=== PATIENT | male | born 1950 | race African-American/Black ===

== ENCOUNTER → 2017-10-04 11:03 | Outpatient (CLI) | payer MEDICARE, OTHER, SELFPAY ==
[2017-10-04 10:29] VITALS: BP 132/82; BMI 31.5
[2017-10-04 14:13] LABS: Absolute Lymphocyte Count 2.76 X10^3/ul (0.83-4.51); Basophil# 0.03 X10^3/uL; Basophil% 0.4 % (0-1); Eosinophil# 0.15 X10^3/uL; Hematocrit 44.4 % (40-54); Hemoglobin 15.1 g/dl (13.0-16.5); Lymphocyte # 2.76 X10^3/ul (4.0); Lymphocyte % 36.3 % (19-41); Mean Corpuscular Hgb 30.4 pg (27.0-32.0); Mean Corpuscular Volume 89.3 fL (80-94); Mean Platelet Vol. 10.6 fl (6.2-12.0); Monocyte# 0.62 X10^3/uL; Monocyte% 8.2 % (0-10); Neutrophil # 4.03 X10^3/uL (2.7-7.7); Platelet Count 226 K/mm3 (150-450); RBC Distribution Width CV 13.3 % (11.6-14.6); RBC Distribution Width SD 42.4 fl (35.1-43.9); Red Blood Count 4.97 M/mm3 (4.6-6.2); White Blood Count 7.6 K/mm3 (4.4-11.0)
[2017-10-04 14:20] LABS: POSITIVE COUNT NO; POSITIVE DIFFERENTIAL NO; POSITIVE MORPHOLOGY NO
[2017-10-04 14:38] LABS: ALB/GLOB Ratio 1.1 RATIO (0.9-2.4); AST(SGOT) 28 U/L (15-37); Alanine Aminotransfer ALT/SGPT 42 U/L (16-61); Albumin, Serum 4.1 g/dL (3.2-5.0); Alkaline Phosphatase 58 U/L (45-117); Anion Gap 9 (5-15); BUN 16 mg/dL (7-18); Calcium,Total 9.2 mg/dL (8.5-10.1); Chloride 103 mmol/L (98-107); Cholesterol 180 mg/dL (200); Creatinine, Serum 1.14 mg/dL (0.70-1.30); EST Glomerular Filtration Rate 68 mL/min (>60); Est Glom Filt Rate - Afr Amer 83 mL/min (>60); Globulin 3.8 g/dL (2.2-4.2); Glucose 113 mg/dL (74-106); High Density Lipoprotein 56 mg/dL; Potassium 4.1 mmol/L (3.5-5.1); Protein, Total 7.9 g/dL (6.4-8.2); Sodium Level 139 mmol/L (136-145); Triglycerides 136 mg/dL; Very Low Density Lipoprotein 27 mg/dL (5-40)
== END ==
PROVIDERS: Family Provider Internal Medicine; PCP Internal Medicine; Visit Provider Internal Medicine
DX: E78.5 Hyperlipidemia, unspecified (principal); N52.9 Male erectile dysfunction, unspecified
CPT/HCPCS: 36415; 80053; 80061; 85025

== ENCOUNTER → 2018-05-31 14:54 | Outpatient (CLI) | payer MEDICARE, OTHER, SELFPAY ==
--- NOTE | 2018-05-31 14:58 | RAD_ITS ---
STUDY: X-RAY - RIGHT HAND REASON FOR EXAM: Pain across the second, third and fourth metacarpals, no specific injury. TECHNIQUE: 3 view(s) of the hand. COMPARISON: None. FINDINGS: Normal radiocarpal articulation. Normal distal radioulnar joint. Normal visualized carpal bones. Normal carpal articulations Normal carpometacarpal articulation of the thumb. Normal second through fifth carpometacarpal joints. Normal metacarpi. Normal metacarpophalangeal joint of the thumb. Normal interphalangeal joint of the thumb. Normal proximal and distal phalanges of the thumb. Normal metacarpophalangeal joints of the second through fifth fingers. Normal proximal and distal interphalangeal joints of the second through fifth fingers. Normal phalanges of the second through fifth fingers. The soft tissue structures are unremarkable. RAD/Hand Min 3 Views IMPRESSION: Normal x-ray examination of the right hand. Electronically Signed: Pete Ortiz MD at 14:05 EDT Tel , Service support ,
--- NOTE | 2018-05-31 15:27 | RAD_ITS ---
STUDY: X-RAY - RIGHT SHOULDER REASON FOR EXAM: Shoulder pain, no trauma. TECHNIQUE: 3 view(s) of the shoulder. COMPARISON: None. FINDINGS: Normal glenohumeral articulation. Normal acromioclavicular joint. There is an os acromiale. Normal humeral head and visualized proximal humerus. There is a small calcification at the inferior aspect of the glenoid. Normal visualized pulmonary apex. RAD/Shoulder min 2 Views IMPRESSION: Os acromiale. Small calcification at the inferior aspect of the glenoid. Electronically Signed: Pete Ortiz MD at 14:15 EDT Tel , Service support ,
== END ==
PROVIDERS: Family Provider Internal Medicine; PCP Internal Medicine; Referring Provider Orthopaedic Surgery; Visit Provider Orthopaedic Surgery
DX: M79.641 Pain in right hand (principal); M25.511 Pain in right shoulder
CPT/HCPCS: 73030; 73130

== ENCOUNTER → 2018-07-08 11:40 | Outpatient (CLI) | payer MEDICARE, OTHER, SELFPAY ==
[2018-07-08 14:38] LABS: AST(SGOT) 25 U/L (15-37); Alanine Aminotransfer ALT/SGPT 35 U/L (16-61); Albumin, Serum 4.1 g/dL (3.2-5.0); Alkaline Phosphatase 68 U/L (45-117); Bilirubin, Direct 0.15 mg/dL (0.00-0.30); Cholesterol 170 mg/dL (200); Globulin 3.6 g/dL (2.2-4.2); High Density Lipoprotein 72 mg/dL; Protein, Total 7.7 g/dL (6.4-8.2); Triglycerides 148 mg/dL; Very Low Density Lipoprotein 30 mg/dL (5-40)
== END ==
PROVIDERS: Family Provider Internal Medicine; PCP Internal Medicine; Referring Provider Nurse Practitioner Family; Visit Provider Nurse Practitioner Family
DX: E78.5 Hyperlipidemia, unspecified (principal); E66.9 Obesity, unspecified
CPT/HCPCS: 80061; 80076

== ENCOUNTER 2018-09-29 10:53 | Emergency (ER) | payer MEDICARE, OTHER, SELFPAY ==
[2018-08-16 14:13] VITALS: BMI 31.5
[2018-09-29 10:55] VITALS: BP 128/74; PULSE 70; RESP 17; TEMP 36.4; O2SAT 98; BMI 31.3
--- NOTE | 2018-09-29 11:21 | CT_ITS ---
STUDY: CT ABDOMEN AND PELVIS WITH CONTRAST REASON FOR EXAM: Male, 68 years old. Left lower quadrant pain x1 day RADIATION DOSAGE (If Supplied By Facility): CTDIvol = ( 10.83 ) mGy, DLP = ( 927.36 ) mGycm TECHNIQUE: Transaxial images were obtained from the dome of the diaphragm to the symphysis pubis without oral contrast. 100CC ml of Isovue 300 contrast was administered. Sagittal and coronal images were reconstructed. Individualized dose optimization techniques were used for this CT. COMPARISON: 2015 FINDINGS: There are chronic interstitial fibrotic changes of the lung bases. The visualized portions of the heart are within normal limits. There is decreased attenuation of the liver consistent with steatosis. Normal gallbladder and extrahepatic biliary system. Normal spleen. Normal pancreas. Normal bilateral adrenal glands. Stable 6.7 cm right renal cyst, no obstructive uropathy. Normal visualized stomach. Normal small intestine. Retained stool noted in the colon. There is an area of abnormal thickening and inflammation around the colon at the junction of the distal descending and proximal sigmoid colon consistent with an acute focal diverticulitis. No perforation or abscess is noted. There is non-visualization of the appendix. Normal abdominal aorta. Normal inferior vena cava. Normal retroperitoneum. Normal urinary bladder. There are prostatic calcifications. Normal abdominal wall. There are diffuse degenerative changes of the visualized lumbar spine. CT/Abdomen/Pelvis W IV Cont ONLY IMPRESSION: Focal area of inflammation involving the junction of the distal descending and proximal sigmoid colon with thickening and pericolonic inflammation consistent with acute uncomplicated diverticulitis. No perforation or abscess noted Fatty infiltration of liver, no discrete lesion Stable right renal cyst Electronically Signed: Modesto Hernandez MD at 12:52 EST , Service support ,
[2018-09-29 11:47] LABS: Absolute Lymphocyte Count 2.14 X10^3/ul (0.83-4.51); Absolute Neutrophil Count 5.3 X10^3/uL (2.0-7.7); Basophil# 0.02 X10^3/uL; Basophil% 0.3 % (0-1); Eosinophil# 0.08 X10^3/uL; Hematocrit 42.3 % (40-54); Hemoglobin 13.8 g/dl (13.0-16.5); Lymphocyte # 2.14 X10^3/ul (4.0); Lymphocyte % 26.9 % (19-41); Mean Corp Hgb Conc 32.6 g/gl (32-36); Mean Platelet Vol. 9.6 fl (6.2-12.0); Monocyte# 0.44 X10^3/uL; Monocyte% 5.5 % (0-10); Neutrophil # 5.25 X10^3/uL (2.7-7.7); POSITIVE COUNT NO; POSITIVE DIFFERENTIAL NO; POSITIVE MORPHOLOGY NO; Platelet Count 223 K/mm3 (150-450); RBC Distribution Width CV 13.6 % (11.6-14.6); RBC Distribution Width SD 45.3 fl (35.1-43.9)
[2018-09-29] MEDS: 0.9% Normal Saline 1,000 ML 1000 ML IV (12:00)
[2018-09-29 12:02] LABS: ALB/GLOB Ratio 0.9 RATIO (0.9-2.4); AST(SGOT) 17 U/L (15-37); Alanine Aminotransfer ALT/SGPT 29 U/L (16-61); Albumin, Serum 3.6 g/dL (3.2-5.0); Alkaline Phosphatase 65 U/L (45-117); Anion Gap 9 (5-15); BUN 13 mg/dL (7-18); BUN/Creat Ratio 14.5 RATIO (10-20); Calcium,Total 8.7 mg/dL (8.5-10.1); Chloride 106 mmol/L (98-107); EST Glomerular Filtration Rate 90 mL/min (>60); Est Glom Filt Rate - Afr Amer 109 mL/min (>60); Estimated Creatinine Clearance 79.65 ml/min; Globulin 3.8 g/dL (2.2-4.2); Glucose 117 mg/dL (74-106); Lipase 174 U/L (73-393); Potassium 3.7 mmol/L (3.5-5.1); Protein, Total 7.4 g/dL (6.4-8.2); Sodium Level 141 mmol/L (136-145)
[2018-09-29 13:09] LABS: Red Blood Cells-Urine 0 SEEN /hpf (0-5); White Blood Cells 0 SEEN /hpf (0-5)
[2018-09-29 13:10] LABS: Bacteria 0 SEEN /hpf (None Seen); Mucous, Urine 0 SEEN /hpf (<or=2+)
[2018-09-29 13:13] LABS: Color, Urine Yellow (Yellow); Glucose, Dipstick Normal (Normal); Ketone-Dipstick Negative (Negative); Leukocyte Esterase-Dipstick 25 /ul (Negative); Nitrite-Dipstick Negative (Negative); Occult Blood-Urine Negative /ul (Negative); Protein-Dipstick Negative (Negative); Urine Bilirubin Dipstick Negative (Negative); Urine Clarity Sl. Cloudy (Clear); Urine Urobilinogen Normal (Normal); Urine pH 6.5 (5.0 - 8.0)
[2018-09-29 13:19] LABS: Squamous Epithelial Cells - UA 0-5 SEEN /hpf (0-5)
--- NOTE | 2018-09-29 13:29 | ED.DCSUM_ITS ---
- ER Visit Summary Date of Service: 09/29/18 Chief Complaint: Pain History of Present Illness: The patient is a 68 M with left-sided abdominal pain for 2 days now. He had similar symptoms in the past with the radiculitis. He has had some constipation but no other significant symptoms. No fevers. No history of abdominal surgeries. Physical Examination: Afebrile and vital signs unremarkable. Patient has left flank tenderness. No guarding or rebound. Otherwise exam unremarkable. Test Results: BC, CMP, lipase, urinalysis unremarkable. CT abdomen shows acute diverticulitis without complication. He has a stable right renal cyst and fatty liver. Emergency Department Course and Treatment: Declined pain medicine. His history, current presentation, exam, and workup is consistent with acute diverticulitis. He is appropriate for outpatient treatment. He was treated with Cipro and Flagyl and will follow up with his primary doctor for recheck. He was advised that diverticulitis can become severe and he can develop complications, so if he has any problems he should return right away. Treatment Plan: As above Disposition: Discharge Impression: 1. Acute diverticulitis This note was generated with [employer] dictation software. It may contain incorrect words, spelling, and punctuation that were not noted in review of the chart prior to signing ED Disposition - Plan for ED Patient: Referrals: Umair Scales MD [Primary Care Provider] -
--- NOTE | 2018-09-29 13:29 | ED.DEP ---
ED Disposition - Plan for ED Patient: Instructions: ED Diverticulitis Prescriptions: Metronidazole [Flagyl] 500 mg PO Q8H #30 tab Ciprofloxacin [Cipro] 500 mg PO BID #20 tab Referrals: Umair Scales MD [Primary Care Provider] -
[2018-09-29] MEDS: Ciprofloxacin 500 MG Tablet PO (13:44)
[2018-09-29] MEDS: metroNIDAZOLE 500 MG Tablet PO (13:44)
[2018-09-29 13:46] VITALS: BP 120/88; PULSE 60; RESP 16; O2SAT 99
== END 2018-09-29 13:48 | disposition home or self-care (01) ==
PROVIDERS: Emergency Provider Emergency Medicine; Family Provider Internal Medicine; PCP Internal Medicine
DX: K57.92 Diverticulitis of intestine, part unspecified, without perforation or abscess without bleeding (principal); N28.1 Cyst of kidney, acquired; K76.0 Fatty (change of) liver, not elsewhere classified; I10 Essential (primary) hypertension; E78.00 Pure hypercholesterolemia, unspecified; Z87.891 Personal history of nicotine dependence; N40.0 Benign prostatic hyperplasia without lower urinary tract symptoms; G47.33 Obstructive sleep apnea (adult) (pediatric)
CPT/HCPCS: 74177; 80053; 81001; 83690; 85025; 96360; 99284; J7030; Q9967; A4216

== ENCOUNTER → 2019-04-18 14:29 | Outpatient (CLI) | payer MEDICARE, OTHER, SELFPAY ==
[2019-01-02 14:10] VITALS: BMI 31.3
[2019-04-18 17:11] LABS: PSA,Total - Annual Screen 2.49 ng/mL (0.00-4.00)
== END ==
PROVIDERS: Family Provider Internal Medicine; PCP Internal Medicine; Referring Provider Urology; Visit Provider Urology
DX: Z12.5 Encounter for screening for malignant neoplasm of prostate (principal)
CPT/HCPCS: 36415; 84153; 84403; G0103

== ENCOUNTER 2019-05-24 13:36 | Day surgery (SDC) | payer MEDICARE, OTHER, SELFPAY ==
[2019-01-02 14:10] VITALS: BMI 31.3
[2019-05-24 13:50] VITALS: BP 125/76; PULSE 65; RESP 18; TEMP 36.4; O2SAT 96; BMI 30.4
[2019-05-24] MEDS: Lactated Ringers 1,000 ML 100 ML IV (14:05)
--- NOTE | 2019-05-24 14:55 | PEN_PTH ---
PATIENT: JACKELYN LOPEZ Sr. [place]: [facility] [place] [facility] [place][id number] AGE/SX: 68/M ROOM: RE05/24/[address]: Dr. Vince Hernandez MD : 1950 BED: DIS: 05/24/2019 SPEC #: [id number] RECD: 05/24/19 17:13 STATUS: NIMA RELila #: [id number] CANELO: 05/24/19 14:[address]: Vince Hernandez DEPT: SURGICAL PATHOLOGY RECD BY: Ed Herrera ENTERED: 05/25/19 09:37 SP TYPE: PENIS OTHR DR: Dr. Umair Scales MD Tissues: Penis, NOS Procedures: Surgery Specimen Level IV HEADER OPERATION: Dilation meatus, cystoscopy, penile biopsy PRE-OP DIAGNOSIS: Penile mass, urethral meatus stenosis TISSUE SUBMITTED: Penile biopsy MICROSCOPIC DIAGNOSIS Penile biopsy: Consistent with invasive poorly differentiated squamous cell carcinoma. See comment. JAYLON:nani 05/26/19 COMMENT Immunohistochemistry ([id number]) supports the above diagnosis. Case has been reviewed in consultation with Dr. Timmons who concurs with the above diagnosis. IDC:AM MICROSCOPIC DESCRIPTION Slides are reviewed. GROSS DESCRIPTION Received in fixative is one container labeled with the patient's name and designated penile biopsy. The specimen consists of three irregular fragments of light freire soft tissue that in aggregate measure 1 x 0.3 x 0.1 cm. The specimen is totally submitted in one cassette. / JAYLON:nani 05/25/19 TC:0 CPT: 80185
--- NOTE | 2019-05-24 15:37 | DCINST_ITS ---
Discharge Diet: Light diet - advance as tolerated Discharge Activity: Return to Normal Activity Additional Instructions: use tylenol and advil prn Allergies/Adverse Reactions: Allergies No Known Allergies Allergy (Verified 05/24/19 13:49) Medications to take at Discharge Cholecalciferol (Vitamin D3) [Vitamin D] 5,000 unit PO DAILY 10/26/13 Multivitamin [Daily Multiple Vitamin] 1 ea PO DAILY 06/06/16 meloxicam 15 mg tablet 15 mg PO DAILY PRN #60 tab 08/17/18 Rosuvastatin Calcium 5 mg PO DAILY 05/18/19 Tamsulosin HCl [Flomax] 0.4 mg PO QHS 05/18/19 Primary Care Physician: Umair Scales MD [Primary Care Provider] - Test Results: Test results from this visit will be discussed in further detail at your follow- up appointment, if applicable. Please Follow Up With: Vince Hernandez MD When: in 2 weeks, please call to make an appointment.
--- NOTE | 2019-05-24 15:38 | OP.PCM_ITS ---
Report of Operation Date of Procedure: 05/24/19 Pre-Operative Diagnosis: Meatal stenosis and penile mass Post-Operative Diagnosis: The same Surgery/Procedure Performed:: Dilation of the meatal stenosis, cystoscopy, and biopsy of penile mass Description of Surgical Findings:: 68-year-old male is been having difficulty with urination is found to have a hard mass/scar tissue right next to the meatus this could be just scar tissue but it also is very concerning the heart is malignancy needs to be ruled out so recommended I do a biopsy and also dilate very pinpoint tight meatus. We will do a cystoscopy as well. 68-year-old male taken back to the operating room at the smooth induction of anesthesia he was placed supine on the table penis and testicles were prepped and draped in usual sterile fashion, I tried to do a dilation but the meatus was too tight so I put a wire through once the wire was through that I was able to see the meatus which is a pinpoint opening and I dilated from 12 Turkmen to 26 Turkmen once this was dilated open and a cystoscopy was performed the entire length the urethra was normal the scar tissue along the urethra sphincter was intact verumontanum was intact prostate had some mild bilateral hypertrophy inside the bladder he did have a Hutch diverticulum somewhat of a trabeculated bladder left and right ureter orifice were normal no tumors or stones seen within the bladder I then removed the cystoscope. I then palpated the mass at the tip of the penis and then using a punch biopsy device to use an 18-gauge punch biopsy device and perform 3 punch biopsies of the mass of the tip of the penis we held pressure then dressings were placed the biopsies were sent off then to pathology see him back in about 2 weeks to review the biopsy results and the results from dilation the meatus and discussed the findings of the prostate he did have some obstructive mildly obstructive prostate and some signs of chronic obstruction of the bladder. Type of Anesthesia:: General Drains: none - Admit VTE Documentation VTE Mechan Device Prophylaxis: SCD's
[2019-05-24 15:48] VITALS: BP 122/79; BP 125/76; PULSE 65; RESP 16; TEMP 36.3; O2SAT 92
[2019-05-24 16:00] VITALS: BP 125/76; BP 128/82; PULSE 65; RESP 16; O2SAT 93
[2019-05-24 16:15] VITALS: BP 120/84; BP 125/76; PULSE 60; RESP 16; O2SAT 92
[2019-05-24 16:25] VITALS: BP 125/76; BP 125/82; PULSE 60; RESP 16; TEMP 36.1; O2SAT 92
[2019-05-24] MEDS: Acetaminophen 325 MG Tablet 650 MG PO (16:43)
[2019-05-24 17:58] VITALS: BP 116/76; BP 125/76; PULSE 53; RESP 16; TEMP 36.5; O2SAT 98
--- NOTE | 2019-05-25 | IMM_PTH ---
PATIENT: JACKELYN LOPEZ Sr. [place] [facility] [place][id number] AGE/SX: 68/M ROOM: RE05/24/[address]: Dr. Vince Hernandez MD : 1950 BED: DIS: 05/24/2019 SPEC #: [id number] RECD: 05/26/19 11:02 STATUS: NIMA RELila #: [id number] CANELO: 05/25/19 00:[address]: Vince Hernandez DEPT: IMMUNOHISTOCHEMISTRY RECD BY: Ai Hernandez ENTERED: 05/26/19 11:05 SP TYPE: IMMUNO OTHR DR: Dr. Umair Scales MD Tissues: Penis, NOS Procedures: RCC (add) SMA (add) NAPSIN A (add) CK20 (add) CK5-6 (add) CK7 (add) CK8 (add) DESMIN (add) HEP PAR (add) P16 (add) TTF1 (add) Vimentin (add) Pankeratin (initial) MELAN-A (add) P40 (add) PSAP (add) S-100 (add) PHYSICIAN & [place] [id number] SPECIMEN INFORMATION: Tissue Source: Penile biopsy Clinical Info: Penile mass, urethral meatus stenosis Specimen Number: [id number] CPT code: 83538, 44797 x16 METHODOLOGY: Deparaffinized sections of prefer/formalin-fixed tissue or PAP/DQ stained slides are incubated with monoclonal/polyclonal antibodies/oligonucleotide probes. Localization is made via biotin free immunoperoxidase method. Appropriate controls are performed and reacted as expected. Results on target cell population are indicated in the following table: RESULTS: ANTIBODY / CLONE RESULT AE1-3 (AE1/AE3/PCK26) positive CK7 (OV-TL12/30) positive CK8 (88pkplX74) negative CK20 (KS20.8) negative Vimentin (V9) negative Actin (1A4) negative Desmin (CE-R-11) negative Melan A (A103) negative S-100 (4C4.9) negative TTF-1 (8G7G3/1) negative Napsin A (Rabbit Polyclonal) negative (high background) HepPar (OCh1E5) negative RCC (PN-15) negative PSAP (PASE/4LJ) negative CK5-6 (D5 & 1684) positive P40 (BC28) positive P16 (E6H4) positive These tests were developed and their performance characteristics determined by [facility]. They may not have been cleared or approved by the U.S. Food and Drug Administration. The FDA has determined that such clearance or approval is not necessary. The above immunohistochemical/dualISH markers are ordered and reviewed by the pathologist. INTERPRETATION: Penile biopsy: Invasive poorly differentiated squamous cell carcinoma. SJ:nani 05/29/19
== END 2019-05-24 17:59 | disposition home or self-care (01) ==
LOC: SDC 13:36 → AC 13:37
PROVIDERS: Family Provider Internal Medicine; PCP Internal Medicine; Referring Provider Urology; Visit Provider Urology
PROC: 0T7D8ZZ Dilation of Urethra, Via Natural or Artificial Opening Endoscopic (ICD-10-PCS; CPT 52281; principal; 2019-05-24 14:45)
DX: C60.9 Malignant neoplasm of penis, unspecified (principal); N35.911 Unspecified urethral stricture, male, meatal; N32.89 Other specified disorders of bladder; E78.00 Pure hypercholesterolemia, unspecified; Z87.891 Personal history of nicotine dependence; E66.9 Obesity, unspecified; Z68.30 Body mass index [BMI] 30.0-30.9, adult
CPT/HCPCS: 00920; 50432; 55899; 88305; 88341; 88342; J7120; C1769

== ENCOUNTER → 2019-07-03 10:11 | Outpatient (CLI) | payer MEDICARE, OTHER, SELFPAY ==
[2019-07-03 09:43] VITALS: BMI 30.4
[2019-07-03 12:18] LABS: Absolute Lymphocyte Count 2.01 X10^3/uL (0.83-4.51); Absolute Neutrophil Count 3.6 X10^3/uL (2.0-7.7); Basophil# 0.06 X10^3/uL; Basophil% 0.9 % (0-1); Eosinophil# 0.14 X10^3/uL; Eosinophils% 2.2 % (0-5); Hematocrit 41.7 % (40-54); Hemoglobin 13.8 g/dL (13.0-16.5); Lymphocyte # 2.01 X10^3/ul (4.0); Lymphocyte % 31.8 % (19-41); Mean Corp Hgb Conc 33.1 g/dL (32-36); Mean Corpuscular Hgb 29.9 pg (27.0-32.0); Mean Corpuscular Volume 90.5 fL (80-94); Mean Platelet Vol. 10.5 fl (6.2-12.0); Monocyte# 0.54 X10^3/uL; Monocyte% 8.5 % (0-10); NRBC Flagged by Analyzer 0 % (0-5); Neutrophil # 3.55 X10^3/uL (2.7-7.7); Neutrophil % 56.3 % (47-70); Platelet Count 218 K/mm3 (150-450); RBC Distribution Width CV 13.1 % (11.6-14.6); RBC Distribution Width SD 43.5 fl (35.1-43.9); Red Blood Count 4.61 M/mm3 (4.6-6.2); White Blood Count 6.3 K/mm3 (4.4-11.0)
[2019-07-03 12:33] LABS: Hemoglobin A1c 6.4 % (4.2-6.3)
[2019-07-03 12:34] LABS: ALB/GLOB Ratio 1.1 RATIO (0.9-2.4); AST(SGOT) 19 U/L (15-37); Alanine Aminotransfer ALT/SGPT 29 U/L (16-61); Albumin, Serum 3.9 g/dL (3.2-5.0); Alkaline Phosphatase 73 U/L (45-117); Anion Gap 8 (5-15); BUN 12 mg/dL (7-18); BUN/Creat Ratio 12.2 RATIO (10-20); Calcium,Total 9.1 mg/dL (8.5-10.1); Chloride 105 mmol/L (98-107); Cholesterol 182 mg/dL (200); Creatinine, Serum 0.99 mg/dL (0.70-1.30); EST Glomerular Filtration Rate 80 mL/min (>60); Est Glom Filt Rate - Afr Amer 97 mL/min (>60); Globulin 3.6 g/dL (2.2-4.2); Glucose 111 mg/dL (74-106); High Density Lipoprotein 64 mg/dL; Potassium 4.2 mmol/L (3.5-5.1); Protein, Total 7.5 g/dL (6.4-8.2); Sodium Level 141 mmol/L (136-145); Triglycerides 116 mg/dL; Very Low Density Lipoprotein 23 mg/dL (5-40)
== END ==
PROVIDERS: Family Provider Internal Medicine; PCP Internal Medicine; Visit Provider Internal Medicine
DX: E66.9 Obesity, unspecified (principal); E78.5 Hyperlipidemia, unspecified; G47.33 Obstructive sleep apnea (adult) (pediatric); R73.9 Hyperglycemia, unspecified
CPT/HCPCS: 36415; 80053; 80061; 83036; 85025

== ENCOUNTER 2019-10-01 20:19 | Emergency (ER) | payer MEDICARE, SELFPAY ==
[2019-07-03 09:43] VITALS: BMI 30.4
[2019-10-01 20:20] VITALS: BP 140/75; PULSE 91; RESP 16; TEMP 37.5; O2SAT 96; BMI 31.7
[2019-10-01 20:38] VITALS: RESP 16
--- NOTE | 2019-10-01 20:43 | ED.VISSUMM ---
- ER Visit Summary Date of Service: 10/01/19 Chief Complaint: Atraumatic left hip pain History of Present Illness: The patient is a 69 M history of high cholesterol, diverticulitis and recent penile cancer with inguinal lymph node dissection in the end of last year. Patient's had chronic swelling of his left leg since the surgery. Expected that. Since 2 days atraumatic left hip pain. No fall or trauma. No fever. No redness. Physical Examination: Older male no acute distress vital signs are stable afebrile. H EENT exam unremarkable. Neck nontender no lymphadenopathy. Lungs clear to auscultation. Heart regular rhythm no murmur. Abdomen soft nontender normal bowel sounds no peritoneal signs. Remedies moves all 4. Neurovascular intact. Left leg does have 1+ pitting edema which is been there for about 1 to 2 months. Calves are nontender. There is no cords. His left hip is really not significant tenderness. There is no redness or warmth. A lot in both the sac of his hip there appears to be tenderness. There is no obvious septic joint. He can flex and extend the left hip. Dorsi and plantar flexion are intact of his left foot and ankle. Back exam nontender. No SI joint tenderness. Neurologically is awake alert with no focal motor weakness. Test Results: X-ray of the left hip 3 views shows surgical clips. But no acute bony abnormality. Read both myself and radiologist. Emergency Department Course and Treatment: This appears to be a left hip bursitis. Patient states he been laying around a lot since the surgery. This does not look a septic joint. There is been no trauma. There is no gross bony deformity. He can do range of motion the left hip. I went over the patient's x-ray with him. Repeat exam unchanged. Clinically this appears to be a bursitis. Not a septic joint. Also there is no bony injury. He will be given an IM injection of morphine and p.o. Zofran. Treatment Plan: Discharged home with [place] for pain. Limited Motrin for inflammation. Ice to the area. Follow-up if not improving or return if worse. He also knows to follow-up if he is continuing postop edema to rule out DVT. Disposition: dc Impression: Atraumatic left hip pain secondary to bursitis Status post inguinal node resection with postop edema This note was generated with Dragon dictation software. It may contain incorrect words, spelling, and punctuation that were not noted in review of the chart prior to signing ED Disposition - Plan for ED Patient: Referrals: Umair Scales MD [Primary Care Provider] -
--- NOTE | 2019-10-01 20:48 | RAD_ITS ---
STUDY: X-RAY - PELVIS AND LEFT HIP REASON FOR EXAM: Male, 69 years old. PT ARRIVES TO ED WITH LEFT HIP PAIN. UNKNOWN CAUSE. TECHNIQUE: 3 views of the pelvis and hip. COMPARISON: Prior left hip study of 12/07/2016 FINDINGS: There is a non-specific bowel gas pattern. There are numerous surgical clips overlying the left and right hips and medial proximal thighs. Normal bilateral iliac wings, sacroiliac joints and visualized sacrum. Normal bilateral superior and inferior pubic rami. Normal pubic symphysis. Normal bilateral ischial tuberosities. Normal visualized femoral head. Normal acetabulum. Normal hip joint. RAD/HIP, UNI W/ Pelvis 2-3 Views IMPRESSION: The bony pelvis and left and right hips appear within normal limits. There are numerous surgical clips overlying the left and right hips and medial thighs. Electronically Signed: Huseyin Anthony MD at 21:18 EST , Service support ,
--- NOTE | 2019-10-01 21:30 | ED.DEP ---
ED Disposition - Plan for ED Patient: Disposition: Home or Assisted Living Instructions: Bursitis Prescriptions: Hydrocodone/Acetaminophen [[place] 7.5-325 Tablet] 1 ea PO 4X/DAY PRN PRN 7 Days #20 tab PRN Reason: Pain Or Fever Prescription Printed Referrals: Umair Scales MD [Primary Care Provider] - Additional Instructions: Acute left hip area. [place] for more severe pain and Motrin to help with any inflammation. No more than 2 Motrin twice a day. This should progressively improve if not needs to be reevaluated. If you are feeling a lot worse return to the emergency department. You have the swelling in your leg after the surgery. This should improve if not to be safe they need to do a noninvasive study or an ultrasound of your left leg to rule out any type of blood clot.
[2019-10-01] MEDS: Ondansetron ODT 4 MG Tablet 8 MG PO (21:34)
[2019-10-01] MEDS: morphine 10 MG/ML Syringe IM (21:35)
[2019-10-01 22:03] VITALS: RESP 16
--- NOTE | 2019-10-01 22:26 | ED.DEP ---
ED Disposition - Plan for ED Patient: Disposition: Home or Assisted Living Instructions: Bursitis Prescriptions: Hydrocodone/Acetaminophen [[place] 5-325 Tablet] 1 ea PO Q4H PRN PRN 5 Days #20 tab PRN Reason: Pain Or Fever Prescription Printed Hydrocodone/Acetaminophen [[place] 7.5-325 Tablet] 1 ea PO 4X/DAY PRN PRN 7 Days #20 tab PRN Reason: Pain Or Fever Prescription Printed Referrals: Umair Scales MD [Primary Care Provider] - Additional Instructions: Acute left hip area. [place] for more severe pain and Motrin to help with any inflammation. No more than 2 Motrin twice a day. This should progressively improve if not needs to be reevaluated. If you are feeling a lot worse return to the emergency department. You have the swelling in your leg after the surgery. This should improve if not to be safe they need to do a noninvasive study or an ultrasound of your left leg to rule out any type of blood clot.
== END 2019-10-01 22:03 | disposition home or self-care (01) ==
PROVIDERS: Emergency Provider Emergency Medicine; PCP Internal Medicine
DX: M70.72 Other bursitis of hip, left hip (principal); M79.89 Other specified soft tissue disorders; E78.00 Pure hypercholesterolemia, unspecified
CPT/HCPCS: 73502; 99283

== ENCOUNTER 2020-02-21 14:20 | Outpatient (RCR) | payer MEDICARE, SELFPAY ==
[2020-01-31 12:42] VITALS: BMI 31.7
== END 2020-02-27 23:59 ==
LOC: DC 14:20
PROVIDERS: PCP Internal Medicine; Visit Provider Internal Medicine
DX: Z71.3 Dietary counseling and surveillance (principal); E11.9 Type 2 diabetes mellitus without complications
CPT/HCPCS: G0108

== ENCOUNTER 2020-03-27 10:30 | Outpatient (RCR) | payer MEDICARE, SELFPAY ==
[2020-01-31 12:42] VITALS: BMI 31.7
== END 2020-03-29 23:59 ==
LOC: DC 10:30
PROVIDERS: PCP Internal Medicine; Visit Provider Internal Medicine
DX: Z71.3 Dietary counseling and surveillance (principal); E11.9 Type 2 diabetes mellitus without complications
CPT/HCPCS: 97802; 97803; G0108

== ENCOUNTER 2020-05-07 13:00 | Outpatient (RCR) | payer MEDICARE, SELFPAY ==
[2020-02-29 14:37] VITALS: BMI 31.7
== END 2020-05-29 23:59 ==
LOC: DC 13:00
PROVIDERS: PCP Internal Medicine; Visit Provider Internal Medicine
DX: Z71.3 Dietary counseling and surveillance (principal); E11.9 Type 2 diabetes mellitus without complications
CPT/HCPCS: 97803

== ENCOUNTER → 2020-09-05 15:21 | Outpatient (CLI) | payer MEDICARE, SELFPAY ==
[2020-09-05 15:20] VITALS: BMI 31.7
[2020-09-05 16:36] LABS: Absolute Neutrophil Count 5.9 X10^3/uL (2.0-7.7); Basophil# 0.07 X10^3/uL; Basophil% 0.8 % (0-1); Eosinophil# 0.16 X10^3/uL; Eosinophils% 1.7 % (0-5); Hematocrit 36.8 % (40-54); Hemoglobin 11.9 g/dL (13.0-16.5); Lymphocyte % 26.1 % (19-41); Mean Corp Hgb Conc 32.3 g/dL (32-36); Mean Corpuscular Hgb 29.4 pg (27.0-32.0); Mean Corpuscular Volume 90.9 fL (80-94); Mean Platelet Vol. 9.6 fl (6.2-12.0); Monocyte# 0.61 X10^3/uL; Monocyte% 6.6 % (0-10); NRBC Flagged by Analyzer 0 % (0-5); Neutrophil # 5.94 X10^3/uL (2.7-7.7); Neutrophil % 64.6 % (47-70); Platelet Count 360 K/mm3 (150-450); RBC Distribution Width SD 48.4 fl (35.1-43.9); Red Blood Count 4.05 M/mm3 (4.6-6.2); White Blood Count 9.2 K/mm3 (4.4-11.0)
[2020-09-05 16:50] LABS: ALB/GLOB Ratio 0.8 RATIO (0.9-2.4); AST(SGOT) 18 U/L (15-37); Alanine Aminotransfer ALT/SGPT 25 U/L (16-61); Albumin, Serum 3.6 g/dL (3.2-5.0); Alkaline Phosphatase 84 U/L (45-117); Anion Gap 6 (5-15); BUN 18 mg/dL (7-18); BUN/Creat Ratio 18.8 RATIO (10-20); Calcium,Total 9.1 mg/dL (8.5-10.1); Chloride 104 mmol/L (98-107); Cholesterol 149 mg/dL (200); Creatinine, Serum 0.96 mg/dL (0.70-1.30); EST Glomerular Filtration Rate 83 mL/min (>60); Est Glom Filt Rate - Afr Amer 100 mL/min (>60); Globulin 4.3 g/dL (2.2-4.2); Glucose 90 mg/dL (74-106); High Density Lipoprotein 68 mg/dL; Potassium 4.1 mmol/L (3.5-5.1); Protein, Total 7.9 g/dL (6.4-8.2); Sodium Level 139 mmol/L (136-145); Triglycerides 148 mg/dL; Very Low Density Lipoprotein 30 mg/dL (5-40)
== END ==
PROVIDERS: PCP Internal Medicine; Referring Provider Internal Medicine; Visit Provider Internal Medicine
DX: E11.9 Type 2 diabetes mellitus without complications (principal); E78.5 Hyperlipidemia, unspecified
CPT/HCPCS: 36415; 80053; 80061; 85025

== ENCOUNTER → 2020-09-18 10:03 | Outpatient (CLI) | payer MEDICARE, SELFPAY ==
[2020-09-05 15:20] VITALS: BMI 31.7
--- NOTE | 2020-09-18 10:06 | RAD_ITS ---
STUDY: X-RAY - LEFT KNEE REASON FOR EXAM: Male, 69 years old. left knee pain, pt has been moving the last month, a lot of steps and walking TECHNIQUE: 4 view(s) of the knee. COMPARISON: None. FINDINGS: No acute fracture, dislocation or osseous destruction. Mild/moderate medial joint space narrowing. Severe lateral compartment joint space narrowing. Mild patellofemoral joint space narrowing. Quadriceps enthesophyte. Small-volume joint effusion with minimal swelling. RAD/Knee 4 or More Views IMPRESSION: Left knee intact with osteoarthrosis predominating at the lateral compartment Small volume joint effusion with minimal swelling Electronically Signed: Juan Carlos Lebron DO at 13:45 EST Tel , Service support ,
== END ==
PROVIDERS: PCP Internal Medicine; Referring Provider Internal Medicine; Visit Provider Internal Medicine
DX: M25.562 Pain in left knee (principal)
CPT/HCPCS: 73564

== ENCOUNTER 2020-10-03 14:47 | Outpatient (RCR) | payer MEDICARE, SELFPAY ==
[2020-02-29 14:37] VITALS: BMI 31.7
[2020-09-30 12:53] VITALS: BMI 31.3
== END 2020-10-27 23:59 ==
LOC: DC 14:47
PROVIDERS: PCP Internal Medicine; Visit Provider Internal Medicine
DX: Z71.3 Dietary counseling and surveillance (principal); E11.9 Type 2 diabetes mellitus without complications
CPT/HCPCS: G0109

== ENCOUNTER 2020-10-31 14:44 | Outpatient (RCR) | payer MEDICARE, SELFPAY ==
[2020-09-30 12:53] VITALS: BMI 31.3
== END 2020-11-10 23:59 | disposition home or self-care (01) ==
LOC: DC 14:44
PROVIDERS: PCP Internal Medicine; Visit Provider Internal Medicine
DX: Z71.3 Dietary counseling and surveillance (principal); E11.9 Type 2 diabetes mellitus without complications
CPT/HCPCS: G0109

== ENCOUNTER → 2020-12-06 13:42 | Outpatient (CLI) | payer MEDICARE, SELFPAY ==
[2020-12-06 13:09] VITALS: BMI 30.5
[2020-12-06 15:14] LABS: Absolute Lymphocyte Count 1.64 X10^3/uL (0.83-4.51); Absolute Neutrophil Count 3.4 X10^3/uL (2.0-7.7); Basophil# 0.04 X10^3/uL; Basophil% 0.7 % (0-1); Eosinophil# 0.14 X10^3/uL; Eosinophils% 2.3 % (0-5); Hemoglobin 13.9 g/dL (13.0-16.5); Lymphocyte # 1.64 X10^3/ul (4.0); Lymphocyte % 26.9 % (19-41); Mean Corp Hgb Conc 32.3 g/dL (32-36); Mean Corpuscular Hgb 28.3 pg (27.0-32.0); Mean Corpuscular Volume 87.4 fL (80-94); Mean Platelet Vol. 10.3 fl (6.2-12.0); Monocyte% 14.8 % (0-10); NRBC Flagged by Analyzer 0 % (0-5); Neutrophil # 3.36 X10^3/uL (2.7-7.7); Neutrophil % 55.1 % (47-70); Platelet Count 248 K/mm3 (150-450); RBC Distribution Width CV 14.8 % (11.6-14.6); RBC Distribution Width SD 47.4 fl (35.1-43.9); Red Blood Count 4.92 M/mm3 (4.6-6.2); White Blood Count 6.1 K/mm3 (4.4-11.0)
[2020-12-06 15:56] LABS: PSA,Total- Diagnostic 4.93 ng/mL (0.0-4.0)
[2020-12-06 16:08] LABS: Hemoglobin A1c 6.3 % (3.8-5.6)
[2020-12-06 16:15] LABS: Microalbumin,Random Urine 27.5 mg/L (NO RANGE EST.)
== END ==
PROVIDERS: PCP Internal Medicine; Referring Provider Internal Medicine; Visit Provider Internal Medicine
DX: R97.20 Elevated prostate specific antigen [PSA] (principal); E11.9 Type 2 diabetes mellitus without complications; E78.5 Hyperlipidemia, unspecified
CPT/HCPCS: 36415; 82043; 82570; 83036; 84153; 85025

== ENCOUNTER → 2021-01-24 12:15 | Outpatient (CLI) | payer MEDICARE, SELFPAY ==
[2020-12-06 13:09] VITALS: BMI 30.5
[2021-01-24 15:41] LABS: PSA,Total- Diagnostic 4.16 ng/mL (0.0-4.0)
== END ==
PROVIDERS: PCP Internal Medicine
DX: R97.20 Elevated prostate specific antigen [PSA] (principal)
CPT/HCPCS: 36415; 84153

== ENCOUNTER 2021-01-28 12:52 | Emergency (ER) | payer MEDICARE, SELFPAY ==
[2020-12-06 13:09] VITALS: BMI 30.5
[2021-01-28 12:53] VITALS: BP 149/81; PULSE 75; RESP 18; TEMP 36.6; O2SAT 97; BMI 30.8
--- NOTE | 2021-01-28 13:03 | CT_ITS ---
STUDY: CT ABDOMEN AND PELVIS WITHOUT CONTRAST REASON FOR EXAM: Male, 70 years old. Abdominal pain RADIATION DOSAGE (If Supplied By Facility): CTDIvol = ( 12.09 ) mGy, DLP = ( 682.61 ) mGycm TECHNIQUE: Transaxial images were obtained from the dome of the diaphragm to the symphysis pubis without oral contrast, and without intravenous contrast. Sagittal and coronal images were reconstructed. Individualized dose optimization techniques were used for this CT. COMPARISON: 09/29/18 FINDINGS: Evaluation of the abdominal viscera is limited in the absence of intravenous contrast. There is atelectasis at the lung bases. The visualized portions of the heart and pericardium are within normal limits. There are no calcified gallstones present. The liver demonstrates an unremarkable unenhanced appearance. The spleen is normal in size. The pancreas demonstrates an unremarkable unenhanced appearance. The adrenal glands are within normal limits. There is a 5 mm stone in the urinary bladder adjacent to the left ureterovesicular junction with moderate left hydroureteronephrosis. This likely represents a recently passed stone. There are no right renal or ureteral stones. There is no right hydronephrosis. There is a stable simple cyst in the right kidney. Normal visualized stomach. There is no bowel obstruction or inflammation. There are colonic diverticula without evidence of diverticulitis. The appendix is visualized and appears normal. The aorta is normal in caliber. There is no abdominal or pelvic free air, free fluid, fluid collection or lymphadenopathy. There are no destructive osseous lesions. There are surgical clips noted in the bilateral inguinal regions. CT/Abdomen/Pelvis without Cont IMPRESSION: 5 mm stone in the urinary bladder adjacent to the left ureterovesicular junction with moderate left hydroureteronephrosis. This likely represents a recently passed stone. No right renal or ureteral stones. No right hydronephrosis. No bowel obstruction or inflammation. Normal appendix. Colonic diverticula without evidence of diverticulitis. Electronically Signed: Denis Floyd MD at 14:03 EDT Tel , Service support ,
--- NOTE | 2021-01-28 13:04 | ED.VIS.GI ---
HPI HPI - GI History of Present Illness Chief Complaint: Abd Pain Detail of Chief Complaint: Abdominal pain that started last evening Informant: patient Abdominal Pain/Flank Pain Current Severity: 06/08 Maximum Severity: 06/08 Narrative Narrative: Patient presents with generalized abdominal pain that started last evening. He thinks that it is worse in the left lower quadrant. Patient tried taking the magnesium citrate this morning to see if he could move his bowels and then he vomited x3. Patient's last bowel movement was last evening. He denies any diarrhea. He denies blood in the stool or black tarry stool. Patient does have a prior history of diverticulitis but this feels little bit different. He is not had any fevers. Prior similar symptoms: No PFSH PFS Medical History (Updated 01/28/21 @ 14:[address] Vaishali Galvez, ) BPH (benign prostatic hyperplasia) Chronic headaches Diarrhea Diverticular disease of colon Erectile dysfunction Hearing loss History of malignant neoplasm of penis Hyperlipidemia POLLO (obstructive sleep apnea) Penis cancer Home Medications cholecalciferol (vitamin D3) 5,000 unit PO DAILY 10/26/13 [History Last Taken 06/07/16] multivitamin 1 ea PO DAILY 06/06/16 [History Last Taken 06/07/16] rosuvastatin 5 mg tablet 5 mg PO DAILY #90 tab 01/10/20 [Rx Last Taken Unknown] blood-glucose meter #1 ea 01/31/20 [Rx Last Taken Unknown] metformin 500 mg tablet 500 mg PO BID #180 tab 02/29/20 [Rx Last Taken Unknown] ferrous sulfate 325 mg (65 mg iron) tablet 325 mg PO QODAY 09/30/20 [History Last Taken Unknown] blood sugar diagnostic #100 ea 12/06/20 [Rx Last Taken Unknown] lancets 28 gauge #200 ea 12/06/20 [Rx Last Taken Unknown] coffee xt-phosphatidyl serine [Neuriva Original] 1 tab PO DAILY 01/28/21 [History Last Taken Unknown] hydrocodone-acetaminophen 1 tab PO Q4H PRN PRN 2 Days #10 tablet 01/28/21 [Rx Last Taken Unknown] ondansetron 4 mg PO Q8H PRN PRN #10 tab 01/28/21 [Rx Last Taken Unknown] sulfamethoxazole-trimethoprim [Bactrim DS] 1 tab PO BID #14 tab 01/28/21 [Rx Last Taken Unknown] Allergy/AdvReac Type Severity Reaction Status Date / Time No Known Allergies Allergy Verified 12/06/20 13:07 Family History Brother Hypertension Cancer Sister Cancer Mother Cancer Surgical History History of lymph node biopsy History of tonsillectomy penisectomy Social History (Updated 12/06/20 @ 16:[address] Umair Scales MD) Smoking Status: Former smoker how long ago did patient quit smokin, 1pk/day second hand exposure: Yes alcohol intake: never substance use type: does not use caffeine: Yes Type: coffee frequency: 3-4 times per week ROS ROS ED Constitutional Constitutional ED: Reports systems reviewed and no addt'l complaints, except as documented; Denies body ache(s), change in weight or chills Eyes Eyes: Denies acute decrease in peripheral vision, change in vision, double vision or loss of vision ENT ENT ED: Reports none; Denies ear pain, lip swelling, loss taste/smell, neck pain, otalgia or sore throat Cardiovascular Cardiovascular: Reports none; Denies abdominal pain, chest pain with activity, leg edema, lightheadedness, palpitations, rapid heart rate or syncope Respiratory/Chest Respiratory/Chest: Reports none; Denies change in mental status, dry cough, dyspnea, hemoptysis, shortness of breath at rest or shortness of breath with exertion Gastrointestinal Gastrointestinal: Reports none, abdominal pain, nausea and vomiting; Denies change in stool character, diarrhea, hematemesis, hematochezia, melena or rectal bleeding Genitourinary Genitourinary ED: Reports none; Denies abdominal discomfort, anuria, dysuria, genital pain or polyuria Musculoskeletal Musculoskeletal: Reports none; Denies arthralgias, back pain, difficulty walking, extremity pain, muscle weakness or myalgias Integumentary Reports none; Denies abscess or rash Neurologic Neurologic: Reports none; Denies abnormal gait, confusion, focal weakness, frequent falls, headache(s), loss of vision, numbness, paresthesias, radicular pain, vertigo or weakness Psychiatric Psychiatric: Reports systems reviewed and no addt'l complaints, except as documented and none; Denies behavioral changes, confusion, difficulty concentrating, hallucinations, suicidal ideation, tactile hallucinations or visual hallucinations Endocrine Endocrinology: Denies none, cold intolerance, excessive sweating, fatigue or heat intolerance Hematologic/Lymphatic Hematologic/Lymphatic: Reports none; Denies anemia, easy bleeding or easy bruising Allergic/Immunologic Allergic/Immunologic ED: Denies as per HPI, none, lip swelling, mouth swelling, throat swelling, tongue swelling or hives EXAM Physical Exam Const Vital Signs: 01/28/21 12:53 01/28/21 13:38 Temperature 97.8 F Temperature Source Temporal Pulse Rate 75 70 Respiratory Rate 18 16 Blood Pressure 149/81 H Blood Pressure Mean 103 Pulse Ox 97 98 Oxygen Delivery Method Room Air Room Air Positive well nourished and well developed General Appearance ED: well developed and NAD HEENT Reports TM's clear and moist mucous membranes normocephalic and atraumatic; Negative for trauma or tenderness Tympanic Membrane ED: Yes TM's clear Eyes PERRL and EOMs intact bilaterally General Eye ED: Negative for pale conjunctiva or scleral icterus Neck no lymphadenopathy, supple and no JVD General: Negative for tenderness Chest Wall inspection of chest normal and palpation of chest normal Chest: Negative for tenderness Resp normal respiratory effort and clear to auscultation bilaterally Effort and Inspection: Negative for respiratory distress or pain with movement Auscultation: Negative for rhonchi, wheezes or diminished lung sounds Cardio regular rate, regular rhythm, S1 normal heart sound, S2 normal heart sound and no murmurs Peripheral Pulses: pulses 2+ throughout GI normal to inspection, nondistended, normoactive bowel sounds, soft to palpation, non-distended and no masses GI Narrative: Patient with diffuse tenderness on exam mostly to left lower quadrant. No tenderness over McBurney's. Negative Hung sign. Palpation: tender and guarding Back/Spine no CVA tenderness and no thoracic nor lumbar tenderness Extremity normal to inspection General Extremety ED: Negative for edema General Extremity: Negative for edema Neuro oriented x3, CN's II-XII intact bilaterally, no sensory deficits noted and gait normal Sensorium / Orientation: awake, alert, oriented to person, oriented to place and oriented to time Motor Exam: strength 5/5 throughout and strength abnormal Psych mental status grossly normal Skin no rashes or lesions noted and no wounds MDM MDM MDM Narrative Medical decision making narrative: Patient and noted to have passed a 5 mm stone into the bladder. Initially was medicated with morphine and Zofran. Patient had good pain relief. He had no further vomiting. Patient also noted to have a UTI and was started on Rocephin 1 g IV. Urine sent for culture. Lab Data Attestation: I reviewed the patient's lab results. Labs: Laboratory Results - last 24 hr 01/28/21 01/28/21 01/28/21 13:15 13:15 13:15 WBC 13.8 H RBC 4.89 Hgb 14.1 Hct 42.8 MCV 87.5 MCH 28.8 MCHC 32.9 RDW Std Deviation 44.5 H RDW Coeff of Andrea 13.9 Plt Count 241 MPV 9.7 Immature Gran % (Auto) 0.300 Neut % (Auto) 82.5 H Lymph % (Auto) 10.3 L [place] % (Auto) 6.1 Eos % (Auto) 0.4 Baso % (Auto) 0.4 Absolute Neuts (auto) 11.4 H Absolute Lymphs (auto) 1.42 Nucleated RBC % 0 Sodium 141 Potassium 3.9 Chloride 108 H Carbon Dioxide 25.0 Anion Gap 8 BUN 21 H Creatinine 1.20 Estim Creat Clear Calc 56.21 Est GFR (MDRD) Af Amer 77 Est GFR (MDRD) Non-Af 64 BUN/Creatinine Ratio 17.5 Glucose 139 H Lactic Acid 1.8 Calcium 9.4 Total Bilirubin 0.50 AST 24 ALT 24 Alkaline Phosphatase 82 Total Protein 8.2 Albumin 4.1 Globulin 4.1 Albumin/Globulin Ratio 1.0 Urine Color Urine Clarity Urine pH Ur Specific [place] Urine Protein Urine Glucose (UA) Urine Ketones Urine Occult Blood Urine Nitrite Urine Bilirubin Urine Urobilinogen Ur Leukocyte Esterase Urine RBC Urine WBC Ur Squamous Epith Cells Urine Bacteria Urine Mucus 01/28/21 14:05 WBC RBC Hgb Hct MCV MCH MCHC RDW Std Deviation RDW Coeff of Andrea Plt Count MPV Immature Gran % (Auto) Neut % (Auto) Lymph % (Auto) [place] % (Auto) Eos % (Auto) Baso % (Auto) Absolute Neuts (auto) Absolute Lymphs (auto) Nucleated RBC % Sodium Potassium Chloride Carbon Dioxide Anion Gap BUN Creatinine Estim Creat Clear Calc Est GFR (MDRD) Af Amer Est GFR (MDRD) Non-Af BUN/Creatinine Ratio Glucose Lactic Acid Calcium Total Bilirubin AST ALT Alkaline Phosphatase Total Protein Albumin Globulin Albumin/Globulin Ratio Urine Color Yellow Urine Clarity Sl. Cloudy Urine pH 5.0 Ur Specific [place] 1.015 Urine Protein 15 H Urine Glucose (UA) Normal Urine Ketones Negative Urine Occult Blood 50 H Urine Nitrite Positive H Urine Bilirubin Negative Urine Urobilinogen Normal Ur Leukocyte Esterase 500 H Urine RBC 0-5 SEEN Urine WBC 25-50 SEEN Ur Squamous Epith Cells 0-5 SEEN Urine Bacteria 2+ Urine Mucus 0 SEEN Radiography Diagnostic Testing: Radiology Impression Abdomen/Pelvis CT 01/28/21 13:03 IMPRESSION: 5 mm stone in the urinary bladder adjacent to the left ureterovesicular junction with moderate left hydroureteronephrosis. This likely represents a recently passed stone. No right renal or ureteral stones. No right hydronephrosis. No bowel obstruction or inflammation. Normal appendix. Colonic diverticula without evidence of diverticulitis. Electronically Signed: Denis Floyd MD at 14:03 EDT Tel , Service support , Discharge Plan Triage Chief Complaint: Abd Pain ED Provider: Vaishali Galvez Dx/Rx/DC Orders Clinical Impression: Kidney stone, Acute UTI Instructions: ED Bladder Infection, Male (Adult), ED Kidney Stone w/ Colic Prescriptions: New hydrocodone-acetaminophen [hydrocodone-acetaminophen] 1 TABLET tablet 1 tab PO Q4H PRN PRN (Reason: Pain) 2 Days Qty: 10 RF: 0 ondansetron [ondansetron] 4 MG tablet 4 mg PO Q8H PRN PRN (Reason: Nausea) Qty: 10 RF: 0 sulfamethoxazole-trimethoprim [Bactrim DS] 800-160 mg tablet 1 tab PO BID Qty: 14 RF: 0 No Action (DME) blood-glucose meter [FreeStyle Lite Meter] Kit See Rx Instructions .ROUTE .MEDSUPPLY Qty: 1 RF: 0 metformin 500 mg tablet 500 mg PO BID Qty: 180 RF: 2 (DME) lancets [FreeStyle Lancets] 28 gauge misc See Rx Instructions .ROUTE .MEDSUPPLY Qty: 200 RF: 3 (DME) FreeStyle Lite Strips Strip See Rx Instructions .ROUTE .MEDSUPPLY Qty: 100 RF: 3 ferrous sulfate [FerrouSul] 325 mg (65 mg iron) tablet 325 mg PO QODAY RF: 0 cholecalciferol (vitamin D3) 2,000 UNIT tablet 5,000 unit PO DAILY RF: 0 multivitamin 1 EACH tablet 1 ea PO DAILY RF: 0 Neuriva Original 50-50 mg Tablet,Chewable 1 tab PO DAILY RF: 0 rosuvastatin 5 mg tablet 5 mg PO DAILY Qty: 90 RF: 3 Primary Care Provider: Umair Scales Referrals: Umair Scales MD [Primary Care Provider] - Vince Hernandez MD [STAFF PHYSICIAN] - 3-5 Days Disposition Disposition: Home, self care
[2021-01-28 13:31] LABS: Absolute Lymphocyte Count 1.42 X10^3/uL (0.83-4.51); Absolute Neutrophil Count 11.4 X10^3/uL (2.0-7.7); Basophil# 0.05 X10^3/uL; Basophil% 0.4 % (0-1); Eosinophil# 0.05 X10^3/uL; Eosinophils% 0.4 % (0-5); Hematocrit 42.8 % (40-54); Hemoglobin 14.1 g/dL (13.0-16.5); Lymphocyte # 1.42 X10^3/ul (0.83-4.51); Lymphocyte % 10.3 % (19-41); Mean Corp Hgb Conc 32.9 g/dL (32-36); Mean Corpuscular Hgb 28.8 pg (27.0-32.0); Mean Corpuscular Volume 87.5 fL (80-94); Mean Platelet Vol. 9.7 fl (6.2-12.0); Monocyte# 0.84 X10^3/uL; Monocyte% 6.1 % (0-10); NRBC Flagged by Analyzer 0 % (0-5); Neutrophil # 11.43 X10^3/uL (2.7-7.7); Neutrophil % 82.5 % (47-70); Platelet Count 241 K/mm3 (150-450); RBC Distribution Width CV 13.9 % (11.6-14.6); RBC Distribution Width SD 44.5 fl (35.1-43.9); Red Blood Count 4.89 M/mm3 (4.6-6.2); White Blood Count 13.8 K/mm3 (4.4-11.0)
[2021-01-28] MEDS: Morphine 4 MG/ML Syringe IV (13:31)
[2021-01-28] MEDS: Ondansetron 4 MG/2 ML Vial IV (13:31)
[2021-01-28] MEDS: 0.9% Normal Saline 1,000 ML 125 ML IV (13:32)
[2021-01-28 13:38] VITALS: PULSE 70; RESP 16; O2SAT 98
[2021-01-28 13:48] LABS: AST(SGOT) 24 U/L (15-37); Alanine Aminotransfer ALT/SGPT 24 U/L (16-61); Albumin, Serum 4.1 g/dL (3.2-5.0); Alkaline Phosphatase 82 U/L (45-117); Anion Gap 8 (5-15); BUN 21 mg/dL (7-18); BUN/Creat Ratio 17.5 RATIO (10-20); Calcium,Total 9.4 mg/dL (8.5-10.1); Chloride 108 mmol/L (98-107); EST Glomerular Filtration Rate 64 mL/min (>60); Est Glom Filt Rate - Afr Amer 77 mL/min (>60); Estimated Creatinine Clearance 56.21 ml/min; Globulin 4.1 g/dL (2.2-4.2); Glucose 139 mg/dL (74-106); Potassium 3.9 mmol/L (3.5-5.1); Protein, Total 8.2 g/dL (6.4-8.2); Sodium Level 141 mmol/L (136-145)
[2021-01-28 13:52] LABS: Lactic Acid 1.8 mmol/L (0.4-1.9)
[2021-01-28 14:15] LABS: Mucous, Urine 0 SEEN /hpf (<or=2+)
[2021-01-28 14:38] LABS: Color, Urine Yellow (Yellow); Glucose, Dipstick Normal (Normal); Ketone-Dipstick Negative (Negative); Leukocyte Esterase-Dipstick 500 /ul (Negative); Nitrite-Dipstick Positive (Negative); Occult Blood-Urine 50 /ul (Negative); Protein-Dipstick 15 mg/dl (Negative); Specific Gravity, Urine 1.015 (1.002-1.030); Urine Bilirubin Dipstick Negative (Negative); Urine Clarity Sl. Cloudy (Clear); Urine Urobilinogen Normal (Normal)
[2021-01-28 14:44] LABS: Red Blood Cells-Urine 0-5 SEEN /hpf (0-5); Squamous Epithelial Cells - UA 0-5 SEEN /hpf (0-5); White Blood Cells 25-50 SEEN /hpf (0-5)
[2021-01-28 14:45] LABS: Bacteria 2+ /hpf (None Seen)
[2021-01-28] MEDS: Ceftriaxone 1 GM/50 ML BAG IV (15:10)
[2021-01-28 16:15] VITALS: BP 148/95; PULSE 78; RESP 18; O2SAT 97
== END 2021-01-28 16:16 | disposition home or self-care (01) ==
PROVIDERS: Emergency Provider Emergency Medicine; PCP Internal Medicine
DX: N20.0 Calculus of kidney (principal); N39.0 Urinary tract infection, site not specified; N21.0 Calculus in bladder; N13.30 Unspecified hydronephrosis; Z87.891 Personal history of nicotine dependence; G47.33 Obstructive sleep apnea (adult) (pediatric); N40.0 Benign prostatic hyperplasia without lower urinary tract symptoms; E78.5 Hyperlipidemia, unspecified
CPT/HCPCS: 74176; 80053; 81001; 83605; 85025; 87086; 87088; 87186; 96361; 96365; 96375; 99283; J7030; J2405

== ENCOUNTER → 2021-04-08 15:23 | Outpatient (CLI) | payer MEDICARE, SELFPAY ==
[2021-03-11 11:23] VITALS: BMI 30.8
[2021-04-08 18:10] LABS: PSA,Total- Diagnostic 2.87 ng/mL (0.0-4.0)
== END ==
PROVIDERS: PCP Internal Medicine; Referring Provider Nurse Practitioner Adult Health; Visit Provider Nurse Practitioner Adult Health
DX: R97.20 Elevated prostate specific antigen [PSA] (principal)
CPT/HCPCS: 36415; 84153

== ENCOUNTER 2021-10-08 09:21 | Outpatient (CLI) | payer MEDICARE, SELFPAY ==
[2021-10-08 12:24] LABS: Absolute Lymphocyte Count 2.25 X10^3/uL (0.83-4.51); Absolute Neutrophil Count 4.9 X10^3/uL (2.0-7.7); Basophil# 0.04 X10^3/uL; Basophil% 0.5 % (0-1); Eosinophil# 0.11 X10^3/uL; Eosinophils% 1.4 % (0-5); Hemoglobin 14.4 g/dL (13.0-16.5); Lymphocyte # 2.25 X10^3/ul (0.83-4.51); Lymphocyte % 28.6 % (19-41); Mean Corp Hgb Conc 34.3 g/dL (32-36); Mean Corpuscular Hgb 30.4 pg (27.0-32.0); Mean Corpuscular Volume 88.6 fL (80-94); Mean Platelet Vol. 10.6 fl (6.2-12.0); Monocyte# 0.58 X10^3/uL; Monocyte% 7.4 % (0-10); NRBC Flagged by Analyzer 0 % (0-5); Neutrophil # 4.87 X10^3/uL (2.7-7.7); Neutrophil % 61.8 % (47-70); Platelet Count 244 K/mm3 (150-450); RBC Distribution Width CV 13.2 % (11.6-14.6); RBC Distribution Width SD 43.1 fl (35.1-43.9); Red Blood Count 4.74 M/mm3 (4.6-6.2); White Blood Count 7.9 K/mm3 (4.4-11.0)
[2021-10-08 13:12] LABS: AST(SGOT) 14 U/L (15-37); Alanine Aminotransfer ALT/SGPT 23 U/L (16-61); Albumin, Serum 3.8 g/dL (3.2-5.0); Alkaline Phosphatase 73 U/L (45-117); Anion Gap 6 (5-15); BUN 16 mg/dL (7-18); BUN/Creat Ratio 14.4 RATIO (10-20); Calcium,Total 9.1 mg/dL (8.5-10.1); Chloride 109 mmol/L (98-107); Cholesterol 147 mg/dL (200); Creatinine, Serum 1.11 mg/dL (0.70-1.30); EST Glomerular Filtration Rate 70 mL/min (>60); Est Glom Filt Rate - Afr Amer 84 mL/min (>60); Globulin 3.8 g/dL (2.2-4.2); Glucose 106 mg/dL (74-106); High Density Lipoprotein 66 mg/dL; Potassium 3.9 mmol/L (3.5-5.1); Protein, Total 7.6 g/dL (6.4-8.2); Sodium Level 140 mmol/L (136-145); Triglycerides 123 mg/dL; Very Low Density Lipoprotein 25 mg/dL (5-40)
[2021-10-08 13:26] LABS: Hemoglobin A1c 6.2 % (3.8-5.6)
== END 2021-10-08 23:59 | disposition home or self-care (01) ==
LOC: MTLAB 09:23
PROVIDERS: PCP Internal Medicine; Referring Provider Internal Medicine; Visit Provider Internal Medicine
DX: E11.9 Type 2 diabetes mellitus without complications (principal); E78.5 Hyperlipidemia, unspecified
CPT/HCPCS: 36415; 80053; 80061; 83036; 85025

== ENCOUNTER 2021-10-14 10:19 | Outpatient (CLI) | payer MEDICARE, SELFPAY ==
--- NOTE | 2021-10-14 10:20 | RAD_ITS ---
STUDY: X-RAY - LUMBAR SPINE REASON FOR EXAM: Male, 71 years old. Low back pain TECHNIQUE: 3 view(s) of the lumbar spine were obtained. COMPARISON: None FINDINGS: There is straightening of the normal lumbar lordosis. There is a mild levoscoliosis of the lumbar spine. There is a normal alignment of the vertebrae. There is multilevel endplate spondylosis of the lumbar vertebrae. There is multi-level degenerative disc disease with multi-level disc space narrowing. There is no demonstrated fracture. The soft tissue structures are unremarkable. RAD/Lumbar Spine 2 or 3 Views IMPRESSION: Degenerative changes of the spine, as detailed above. Electronically Signed: Modesto Hernandez MD at 13:59 EST ,
== END 2021-10-14 23:59 | disposition home or self-care (01) ==
LOC: MTRAD 10:20
PROVIDERS: PCP Internal Medicine; Referring Provider Internal Medicine; Visit Provider Internal Medicine
DX: M54.16 Radiculopathy, lumbar region (principal)
CPT/HCPCS: 72100

== ENCOUNTER 2021-11-18 14:00 | Outpatient (RCR) | payer MEDICARE, SELFPAY ==
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
--- NOTE | 2021-11-18 14:58 | HP.PTDCSUM ---
It has been my pleasure to treat JACKELYN LOPEZ Sr. referred by Dr. Umair Scales MD, with the diagnosis of RADICULOPATHY ,LUMBAR REGION for a total of 9 visit(s). Discharge Date: 11/18/21 Please see the following information for a summary of their discharge status. Subjective: Doing well no pain ..extended sitting Right Back Pain Intensity (Out of 10): 0 Right Lower Extremity Pain Intensity (Out of 10): 0 % Improvement: 95 Objective/Function: POSTURE; WFL. GAIT: reciprocal pattern. NEURO: intact. MMT: BLE 4/5. LUMBAR ROM: FLEXION MIN LOSS ,EXTENSION MIN LOSS NO PAIN Goal 1:: Patient to be I with HEP for lumbar Goal Progress: Goal Met Goal 2:: Patient to improve posture /body mechanics by 90% Goal Progress: Goal Met Goal 3:: Patient to demonstrate 60% improvement with improve function and decrease symptoms Goal Progress: Goal Met Goal 4:: Patient to improve lumbar ROM for function of recovery to lift from floor with correct posture Goal Progress: Goal Met Goal 5:: Patient to improve back oswestry score by 5 points or > improve QOL. Goal Progress: Goal Met Plan: D/C Discharge Comments: D/C If there are questions or concerns regarding this patient's physical therapy, please feel free to call me at [phone]. Thank you for the referral of this patient. Sincerely, García Valentine, PT, Cert MDT, OCS Balance/Gait/Functional tests - Balance/Special Test Scores Oswestry Low Back Score: 0
== END 2021-11-18 19:00 | disposition home or self-care (01) ==
LOC: PT 14:00
PROVIDERS: PCP Internal Medicine; Referring Provider Internal Medicine; Visit Provider Internal Medicine
DX: M54.16 Radiculopathy, lumbar region (principal)
CPT/HCPCS: 97110; 97162; 97530

== ENCOUNTER 2022-03-13 13:24 | Emergency (ER) | payer MEDICARE, SELFPAY ==
[2022-03-13 13:25] VITALS: BP 136/94; PULSE 77; RESP 16; TEMP 36.8; O2SAT 99; BMI 30.2
--- NOTE | 2022-03-13 13:43 | CT_ITS ---
STUDY: CT ABDOMEN AND PELVIS WITH CONTRAST REASON FOR EXAM: Male, 71 years old. Abdominal pain -- IV PO Contrast RADIATION DOSAGE (If Supplied By Facility): CTDIvol = ( 18.74 ) mGy, DLP = ( 908.15 ) mGycm TECHNIQUE: Transaxial images were obtained from the dome of the diaphragm to the symphysis pubis without oral contrast. Oral and amp; IV Gastrografin and amp; 100mL Isovue-300 was administered. Sagittal and coronal images were reconstructed. Individualized dose optimization techniques were used for this CT. COMPARISON: 06/07/2016 and 01/28/2021 FINDINGS: The visualized lung bases are unremarkable. The visualized portions of the heart are within normal limits. There are stable too small to characterize low-attenuation foci within the liver. Normal gallbladder and extrahepatic biliary system. Normal spleen. There is mild stranding adjacent to the tail the pancreas. Normal bilateral adrenal glands. There is a right renal cyst. There is an additional too small to characterize low-attenuation focus within the right kidney. There is right renal ectopia with the right kidney within the lower abdomen/upper pelvis. Normal left kidney. Normal visualized stomach. There is a right inguinal hernia containing a segment of small bowel with no associated obstruction. There are multiple colonic diverticula consistent with diverticulosis. There is focal circumferential wall thickening of the splenic flexure of the colon associated with adjacent stranding. There is circumferential wall thickening of the sigmoid colon which is incompletely distended. The appendix is visualized and appears normal. Normal abdominal aorta. Normal inferior vena cava. Normal retroperitoneum. Stable focal dilatation of the distal right ureter. Normal urinary bladder. There are surgical clips within the inguinal regions bilaterally. There are diffuse degenerative changes of the visualized lumbar spine. There are scattered sclerotic foci within the L2, L5 and S1 vertebra that are more pronounced than the [address]/Abdomen/Pelvis WITH Contrast IMPRESSION: Findings suggestive of focal diverticulitis of the splenic flexure of the colon. Mild inflammation adjacent to the tail of the pancreas, may be reactive however cannot exclude focal pancreatitis. Right inguinal hernia containing segments of small bowel with no associated obstruction. Scattered sclerotic foci within the lumbar spine and sacrum, recommend bone scan for further evaluation for cannot exclude a neoplastic process. Focal thickening of the sigmoid colon, this may partially secondary to the inability to state however cannot exclude a neoplastic process, recommend direct visualization. Electronically Signed: Janneth Braswell MD at 16:01 EDT ,
--- NOTE | 2022-03-13 13:43 | EX.ED.DYSGE1 ---
HPI History of Present Illness Chief Complaint: Abd Pain Informant: patient Onset/Context/Timing Onset: Days Context: Gradual Onset Timing: Waxes and wanes Current Severity: Moderate Maximum Severity: Moderate Narrative Narrative: Patient present secondary abdominal pain. He states has been having waxing and waning abdominal pain for the past week but seem to worsen today. He points to a band across the mid umbilical region. This morning he had nausea with dry heaves. He has had no diarrhea. No fever. He states pain does not be worse when he eats. He denies any prior abdominal surgeries. [facility] Medical History Abdominal pain BPH (benign prostatic hyperplasia) Chronic headaches Diarrhea Diverticular disease of colon Elevated blood pressure reading Erectile dysfunction Flu vaccine need Hearing loss History of malignant neoplasm of penis Hyperlipidemia Kidney stone Lumbar radiculopathy Numbness and tingling in both hands POLLO (obstructive sleep apnea) Penis cancer Trigger finger of right hand Type 2 diabetes mellitus Vertigo Home Medications cholecalciferol (vitamin D3) 50 mcg (2,000 unit) tablet 5,000 unit PO DAILY 10/26/13 [History Last Taken 06/07/16] multivitamin 1 ea PO DAILY 06/06/16 [History Last Taken 06/07/16] blood-glucose meter (FreeStyle Lite Meter kit) #1 ea 01/31/20 [Rx Last Taken Unknown] ferrous sulfate 325 mg (65 mg iron) tablet (FerrouSul) 325 mg PO QODAY 09/30/20 [History Last Taken Unknown] coffee extract 50 mg-phosphatidyl serine 50 mg chewable tablet (Neuriva Original) 1 tab PO DAILY 01/28/21 [History Last Taken Unknown] triamcinolone acetonide 0.1 % topical cream 1 applic topical BID PRN rash, itching #80 grams 05/16/21 [Rx Last Taken Unknown] tamsulosin 0.4 mg capsule 0.4 mg PO DAILY 06/11/21 [History Last Taken Unknown] blood sugar diagnostic (FreeStyle Lite Strips) #100 ea 12/18/21 [Rx Last Taken Unknown] lancets 28 gauge (FreeStyle Lancets) #200 ea 12/18/21 [Rx Last Taken Unknown] metformin 850 mg tablet 850 mg PO BID #180 tabs 02/04/22 [Rx Last Taken Unknown] rosuvastatin 5 mg tablet 5 mg PO DAILY #90 tabs 02/10/22 [Rx Last Taken Unknown] ciprofloxacin HCl 500 mg tablet (Cipro) 500 mg PO BID #20 tabs 03/13/22 [Rx Last Taken Unknown] metronidazole 500 mg tablet 500 mg PO BID 10 days #20 tabs 03/13/22 [Rx Last Taken Unknown] Allergy/AdvReac Type Severity Reaction Status Date / Time ondansetron [From Zofran] AdvReac Severe dizziness, Verified 03/13/22 13:26 headache Family History Brother Hypertension Cancer Sister Cancer Mother Cancer Surgical History History of lymph node biopsy History of tonsillectomy penisectomy Social History Smoking Status: Former smoker how long ago did patient quit smokin, 1pk/day second hand exposure: Yes alcohol intake: never substance use type: does not use caffeine: Yes Type: coffee frequency: 3-4 times per week ROS ROS ED Constitutional Constitutional ED: Denies chills or fever(s) Eyes Eyes: Denies change in vision or discharge from eye(s) ENT ENT ED: Denies discharge from eye(s), rhinorrhea or sore throat Cardiovascular Cardiovascular: Denies chest pain or palpitations Respiratory/Chest Respiratory/Chest: Denies cough or dyspnea Gastrointestinal Gastrointestinal: Reports abdominal pain and nausea; Denies diarrhea or vomiting Genitourinary Genitourinary ED: Denies difficulty urinating or dysuria Musculoskeletal Musculoskeletal: Denies back pain or extremity pain Integumentary Denies Abrasions or rash Neurologic Neurologic: Denies headache(s) or weakness Psychiatric Psychiatric: Denies anxiety or depression Allergic/Immunologic Allergic/Immunologic ED: Denies lip swelling or urticaria EXAM Physical Exam Const Vital Signs: 03/13/22 13:25 03/13/22 15:09 Temperature 98.3 F Temperature Source Temporal Pulse Rate 77 64 Respiratory Rate 16 16 Blood Pressure 136/94 H 168/88 H Blood Pressure Mean 108 114 Pulse Ox 99 98 Oxygen Delivery Method Room Air Room Air Positive well nourished and well developed General Appearance ED: well developed HEENT Reports moist mucous membranes Eyes PERRL and EOMs intact bilaterally Neck no lymphadenopathy Chest Wall inspection of chest normal and palpation of chest normal Cardio regular rate and regular rhythm GI GI Narrative: Abdomen soft with mild mid abdominal tenderness. No guarding or rebound. Hypoactive but present bowel sounds are noted. Extremity normal to inspection Neuro oriented x3 and no sensory deficits noted Motor Exam: strength 5/5 throughout Psych mental status grossly normal Skin no rashes or lesions noted MDM MDM MDM Narrative Medical decision making narrative: Patient given morphine and Zofran for pain and nausea. Lab work obtained along with urinalysis and CT scan of the abdomen and pelvis with p.o. and IV contrast. Lab Data Attestation: I reviewed the patient's lab results. Labs: Laboratory Results - last 24 hr 03/13/22 03/13/22 03/13/22 14:00 14:00 14:50 WBC 9.2 RBC 4.63 Hgb 13.8 Hct 40.8 MCV 88.1 MCH 29.8 MCHC 33.8 RDW Std Deviation 41.5 RDW Coeff of Andrea 13.0 Plt Count 256 MPV 10.0 Immature Gran % (Auto) 0.200 Neut % (Auto) 72.4 H Lymph % (Auto) 17.7 L [place] % (Auto) 7.0 Eos % (Auto) 2.4 Baso % (Auto) 0.3 Absolute Neuts (auto) 6.7 Absolute Lymphs (auto) 1.63 Nucleated RBC % 0 Sodium 142 Potassium 3.8 Chloride 108 H Carbon Dioxide 27.0 Anion Gap 7 BUN 15 Creatinine 0.96 Estim Creat Clear Calc 69.27 Est GFR (MDRD) Af Amer 99 Est GFR (MDRD) Non-Af 82 BUN/Creatinine Ratio 15.6 Glucose 116 H Calcium 8.9 Total Bilirubin 0.30 Direct Bilirubin 0.10 AST 21 ALT 22 Alkaline Phosphatase 76 Total Protein 7.5 Albumin 3.7 Globulin 3.8 Urine Color Yellow Urine Clarity Clear Urine pH 6.0 Ur Specific [place] 1.015 Urine Protein Negative Urine Glucose (UA) Normal Urine Ketones Negative Urine Occult Blood Negative Urine Nitrite Negative Urine Bilirubin Negative Urine Urobilinogen Normal Ur Leukocyte Esterase 100 H Urine RBC 0 SEEN Urine WBC 10-25 SEEN Ur Squamous Epith Cells 0-5 SEEN Urine Bacteria 0 SEEN Urine Mucus 0 SEEN Radiography Diagnostic Testing: Clinical Impression(s) from Imaging Studies Abdomen/Pelvis CT 03/13/22 13:43 IMPRESSION: Findings suggestive of focal diverticulitis of the splenic flexure of the colon. Mild inflammation adjacent to the tail of the pancreas, may be reactive however cannot exclude focal pancreatitis. Right inguinal hernia containing segments of small bowel with no associated obstruction. Scattered sclerotic foci within the lumbar spine and sacrum, recommend bone scan for further evaluation for cannot exclude a neoplastic process. Focal thickening of the sigmoid colon, this may partially secondary to the inability to state however cannot exclude a neoplastic process, recommend direct visualization. Electronically Signed: Janneth Braswell MD at 16:01 EDT , Treatment and Re-Evaluation Narrative: Patient did require second dose of morphine after drinking contrast. On repeat evaluation he is resting comfortably. Test results discussed with him. White count is normal with no left shift. Chemistry studies and LFTs normal. Urinalysis does reveal 10-25 white cells but 0 bacteria and no nitrites. CT scan reveals focal diverticulitis at the splenic flexure. There is also some focal thickening of the sigmoid colon which may be reactive however neoplastic process cannot be ruled out. I did discuss with the patient the importance of following up for a colonoscopy once his acute infection is resolved. He voices understanding and agreement. He will be treated with a course of Cipro and Flagyl, first dose given here. Discharge Plan Triage Chief Complaint: Abd Pain ED Provider: Melina José Dx/Rx/DC Orders Clinical Impression: Diverticulitis Instructions: ED Diverticulitis Prescriptions: New ciprofloxacin HCl [Cipro] 500 mg tablet 500 mg PO BID Qty: 20 0RF metronidazole 500 mg tablet 500 mg PO BID 10 Days Qty: 20 0RF No Action (DME) blood-glucose meter [FreeStyle Lite Meter] Kit See Rx Instructions .ROUTE .MEDSUPPLY Qty: 1 0RF Rx Instructions: As directed, check blood glucose daily for type 2 DM ferrous sulfate [FerrouSul] 325 mg (65 mg iron) tablet 325 mg PO QODAY tamsulosin 0.4 mg capsule 0.4 mg PO DAILY triamcinolone acetonide 0.1 % cream 1 applic topical BID PRN (Reason: rash, itching) Qty: 80 1RF metformin 850 mg tablet 850 mg PO BID Qty: 180 3RF cholecalciferol (vitamin D3) 2,000 UNIT tablet 5,000 unit PO DAILY multivitamin 1 EACH tablet 1 ea PO DAILY Neuriva Original 50-50 mg Tablet,Chewable 1 tab PO DAILY (DME) FreeStyle Lite Strips Strip See Rx Instructions .ROUTE .MEDSUPPLY Qty: 100 3RF Rx Instructions: check blood glucose daily for type 2 DM (DME) lancets [FreeStyle Lancets] 28 gauge misc See Rx Instructions .ROUTE .MEDSUPPLY Qty: 200 3RF Rx Instructions: check blood glucose daily for type 2 DM rosuvastatin 5 mg tablet 5 mg PO DAILY Qty: 90 3RF Rx Instructions: TAKE 1 TABLET BY MOUTH EVERY DAY Primary Care Provider: Umair Scales Referrals: Umair Scales MD [Primary Care Provider] - 1-2 Weeks Disposition Disposition: Home, Self Care
[2022-03-13] MEDS: proMETHazine 25 MG Tablet PO (13:59)
[2022-03-13] MEDS: 0.9% Normal Saline 1,000 ML 150 ML IV (13:59)
[2022-03-13] MEDS: Morphine 4 MG/ML Syringe IV ×2 (14:00→15:08)
[2022-03-13 14:27] LABS: Absolute Lymphocyte Count 1.63 X10^3/uL (0.83-4.51); Absolute Neutrophil Count 6.7 X10^3/uL (2.0-7.7); Basophil# 0.03 X10^3/uL; Basophil% 0.3 % (0-1); Eosinophil# 0.22 X10^3/uL; Eosinophils% 2.4 % (0-5); Hematocrit 40.8 % (40-54); Hemoglobin 13.8 g/dL (13.0-16.5); Lymphocyte # 1.63 X10^3/ul (0.83-4.51); Lymphocyte % 17.7 % (19-41); Mean Corp Hgb Conc 33.8 g/dL (32-36); Mean Corpuscular Hgb 29.8 pg (27.0-32.0); Mean Corpuscular Volume 88.1 fL (80-94); Monocyte# 0.64 X10^3/uL; NRBC Flagged by Analyzer 0 % (0-5); Neutrophil # 6.65 X10^3/uL (2.7-7.7); Neutrophil % 72.4 % (47-70); Platelet Count 256 K/mm3 (150-450); RBC Distribution Width SD 41.5 fl (35.1-43.9); Red Blood Count 4.63 M/mm3 (4.6-6.2); White Blood Count 9.2 K/mm3 (4.4-11.0)
[2022-03-13 14:39] LABS: AST(SGOT) 21 U/L (15-37); Alanine Aminotransfer ALT/SGPT 22 U/L (16-61); Albumin, Serum 3.7 g/dL (3.2-5.0); Alkaline Phosphatase 76 U/L (45-117); Anion Gap 7 (5-15); BUN 15 mg/dL (7-18); BUN/Creat Ratio 15.6 RATIO (10-20); Calcium,Total 8.9 mg/dL (8.5-10.1); Chloride 108 mmol/L (98-107); Creatinine, Serum 0.96 mg/dL (0.70-1.30); EST Glomerular Filtration Rate 82 mL/min (>60); Est Glom Filt Rate - Afr Amer 99 mL/min (>60); Estimated Creatinine Clearance 69.27 ml/min; Globulin 3.8 g/dL (2.2-4.2); Glucose 116 mg/dL (74-106); Potassium 3.8 mmol/L (3.5-5.1); Protein, Total 7.5 g/dL (6.4-8.2); Sodium Level 142 mmol/L (136-145)
[2022-03-13 15:01] LABS: Bacteria 0 SEEN /hpf (None Seen); Mucous, Urine 0 SEEN /hpf (<or=2+); Red Blood Cells-Urine 0 SEEN /hpf (0-5)
[2022-03-13 15:02] LABS: Color, Urine Yellow (Yellow); Glucose, Dipstick Normal (Normal); Ketone-Dipstick Negative (Negative); Leukocyte Esterase-Dipstick 100 /ul (Negative); Nitrite-Dipstick Negative (Negative); Occult Blood-Urine Negative /ul (Negative); Protein-Dipstick Negative (Negative); Specific Gravity, Urine 1.015 (1.002-1.030); Urine Bilirubin Dipstick Negative (Negative); Urine Clarity Clear (Clear); Urine Urobilinogen Normal (Normal)
[2022-03-13 15:09] VITALS: BP 168/88; PULSE 64; RESP 16; O2SAT 98
[2022-03-13 15:13] LABS: Squamous Epithelial Cells - UA 0-5 SEEN /hpf (0-5); White Blood Cells 10-25 SEEN /hpf (0-5)
[2022-03-13] MEDS: Ciprofloxacin 500 MG Tablet PO (16:32)
[2022-03-13] MEDS: metroNIDAZOLE 500 MG Tablet PO (16:32)
[2022-03-13 16:40] VITALS: RESP 14
== END 2022-03-13 16:42 | disposition home or self-care (01) ==
PROVIDERS: Emergency Provider Emergency Medicine; PCP Internal Medicine; Visit Provider Emergency Medicine
DX: K57.92 Diverticulitis of intestine, part unspecified, without perforation or abscess without bleeding (principal); E11.9 Type 2 diabetes mellitus without complications; E78.5 Hyperlipidemia, unspecified; Z87.891 Personal history of nicotine dependence; Z79.899 Other long term (current) drug therapy; Z79.84 Long term (current) use of oral hypoglycemic drugs
CPT/HCPCS: 74177; 80048; 80076; 81001; 85025; 96361; 96374; 96376; 99284; J7030; Q9967

== ENCOUNTER 2022-04-21 07:25 | Day surgery (SDC) | payer MEDICARE, SELFPAY ==
--- NOTE | 2022-04-21 07:34 | PCM.HP.BLA ---
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 Accompanied by: Is patient in pain?: No Allergies ondansetron [From Zofran] Adverse Reaction (Severe, Verified 04/10/22 07:47) dizziness, headache Medications cholecalciferol (vitamin D3) 50 mcg (2,000 unit) tablet 5,000 unit PO DAILY 10/26/13 [History Confirmed 04/10/22] multivitamin 1 ea PO DAILY 06/06/16 [History Confirmed 04/10/22] blood-glucose meter (FreeStyle Lite Meter kit) #1 ea 01/31/20 [Rx Confirmed 04/10/22] ferrous sulfate 325 mg (65 mg iron) tablet (FerrouSul) 325 mg PO QODAY 09/30/20 [History Confirmed 04/10/22] coffee extract 50 mg-phosphatidyl serine 50 mg chewable tablet (Neuriva Original) 1 tab PO DAILY 01/28/21 [History Confirmed 04/10/22] triamcinolone acetonide 0.1 % topical cream 1 applic topical BID PRN rash, itching #80 grams 05/16/21 [Rx Confirmed 04/10/22] tamsulosin 0.4 mg capsule 0.4 mg PO DAILY 06/11/21 [History Confirmed 04/10/22] blood sugar diagnostic (FreeStyle Lite Strips) #100 ea 12/18/21 [Rx Confirmed 04/10/22] lancets 28 gauge (FreeStyle Lancets) #200 ea 12/18/21 [Rx Confirmed 04/10/22] metformin 850 mg tablet 850 mg PO BID #180 tabs 02/04/22 [Rx Confirmed 04/10/22] rosuvastatin 5 mg tablet 5 mg PO DAILY #90 tabs 02/10/22 [Rx Confirmed 04/10/22] PFSH Medical History? Abdominal pain BPH (benign prostatic hyperplasia) Chronic headaches Diarrhea Diverticular disease of colon Elevated blood pressure reading Erectile dysfunction Flu vaccine need Hearing loss History of malignant neoplasm of penis Hyperlipidemia Kidney stone Lumbar radiculopathy Numbness and tingling in both hands POLLO (obstructive sleep apnea) Penis cancer Right inguinal hernia Trigger finger of right hand Type 2 diabetes mellitus Vertigo Surgical History? History of lymph node biopsy History of tonsillectomy penisectomy Family History? Brother Hypertension CancerSister CancerMother Cancer Social History? Smoking Status:? Former smoker how long ago did patient quit smoking:? 1984, 1pk/day second hand exposure:? Yes alcohol intake:? never substance use type:? does not use caffeine:? Yes Type: coffee frequency:? 3-4 times per week HPI HPI HPI: JACKELYN LOPEZ, is a 71 M who presents to the office today for surgical consultation regarding a right inguinal hernia.? The patient is referred by Dr. Umair Scales and a written copy of my surgical consult recommendations will return to her.? The patient is complaining of right groin pain.? It is of note however that quite recently on March 13, 2022 he was seen in the emergency room for periumbilical abdominal pain.? A CT scan was obtained suggesting possible focal diverticulitis of the splenic flexure mild inflammation adjacent to the tail the pancreas possibly reactive but cannot exclude focal pancreatitis.? Right inguinal hernia was identified with small bowel involvement.? Additionally there was focal thickening of the sigmoid colon.? Direct visualization i.e. endoscopy was recommended.? The patient was treated with ciprofloxacin and metronidazole. He does not think that that hernia in the right groin is reducible.? He does not recall a distinct event.? It is intermittently uncomfortable. He has had penile cancer.? He has had bilateral femoral node dissections.? That was performed at [facility].? He is currently considered cancer free. He has had perhaps 3 previous colonoscopies.? He has had at least 5 bouts of diverticulitis.? He states corn is an offending factor Believes his most recent colonoscopy was 5 years ago ROS General General: Yes fatigue; No weight change, appetite, colon cancer, breast cancer or weakness HEENT HEENT: No difficulty swallowing, eye injury, eye surgery, swollen glands or hoarseness Endo Endocrine: Yes diabetes mellitus; No thyroid disease, thyroid cancer, Hair loss, heat intolerance or cold intolerance Skin Skin: No rash or changing moles Breast Breast: No left breast lump, right breast lump, nipple discharge, breast pain, abnormal mammogram, abnormal US or breast enlargement Musc Musculoskeletal: Yes back problems and arthritis; No rheumatoid arthritis, gout or joint pain Cardio Cardiovascular: No murmur, pacemaker, heart disease, atrial fibrillation, high blood pressure, heart attack, heart stent, palpitations, shortness of breat with exertion or chest pain Psych Psychiatric: No depression, anxiety or hearing voices Resp Respiratory: No shortness of breath, Yes sleep apnea, No cough, No COPD, No asthma, No emphysema and No wheezing Gastro Gastrointestinal: No abdominal pain, No nausea or vomiting, No diarrhea, No constipation, No blood in stool, No acid reflux, No hemorrhoids, No ulcers, No gallbladder problem and No black,tarry stools Blue Hematologic: No blood thinners, No blood disorders, No bleeding, No anemia and No blood clots Neuro Neurologic: No system reviewed and no additional complaints, except as documented, No as per HPI, No abnormal gait, No abnormal hearing, No abnormal movements, No abnormal speech, No behavioral changes, No burning sensations, No confusion, No convulsions, No disequilibrium, No dizziness, No localized weakness, No frequent falls, No headache(s), No lack of coordination, No loss of vision, No memory loss, No numbness, No other visual disturbances, No radicular pain, No restless legs, No sensory deficit, No syncope, No tingling, No tremor(s), No weakness and No other Exam Const General: cooperative, healthy appearing, comfortable and no acute distress Nutritional Appearance: overweight [facility] Head: normal to inspection Eyes General: appearance normal, both eyes and all related structures Neck Neck: normal visual inspection Resp Effort & Inspection: normal respiratory effort Auscultation: clear to auscultation bilaterally Cardio Rate: regular rate Rhythm: regular rhythm GI Inspection: normal to inspection Other: Soft, nontender, Other: Surgically absent penis.? Left groin solid intact.? Obvious right inguinal hernia.? With supine position hernia is reducible. Musc Cervical Spine: normal cervical lordosis Skin General: no rashes or lesions noted Neuro General: patient alert and patient awake Extrem General: no calf tenderness Other: Patient wear support hose Psych Appearance: grossly normal Assessment and Plan Assessment and Plan (1) Right inguinal hernia: ?Status:?Chronic (2) Abnormal CT scan, colon: ?Status:?Acute Plan The patient has an abnormal CT scan of the hepatic flexure and of the pancreatic tail and of the sigmoid colon.? Particular regarding the sigmoid colon endoscopic evaluation was recommended per radiology.? I proposed to the patient a colonoscopy with possible biopsy or polypectomy as indicated.? He has had at least 5 bouts of diverticulitis.? Inspection of the entire colon but particularly focused attention on the sigmoid and hepatic flexure will be pursued.? He has had an opportunity to ask and have questions answered and he is interested in pursuing this investigation.? Previous colonoscopy about 5 years ago. The patient has a symptomatic right inguinal hernia with small bowel involvement.? Fortunately is still reducible.? Based upon his body habitus I propose for him a laparoscopic right inguinal hernia repair with mesh.? I discussed the technique, benefit, risk of alternatives.? No guarantees of success have been offered.? I would like to obtain records from [facility] from his previous node dissection to hopefully confer that this did not extend into the external iliac area. We will schedule and try to expedite his care.? I very much appreciate the kind option of assisting with the surgical management. Copy: Dr. Umair Villarreal M.D., F.A.C.S I have re-examined the patient. There are no clinical changes since date of exam. Zeb Villarreal M.D., F.A.C.S.
[2022-04-21] MEDS: Lactated Ringers 1,000 ML 15 ML IV (07:40)
[2022-04-21 07:55] VITALS: BP 106/80; PULSE 64; RESP 16; TEMP 36.4; O2SAT 96; BMI 29.7
[2022-04-21 08:20] LABS: Bedside Glucose 99 mg/dL (74-106)
[2022-04-21 09:09] VITALS: BP 106/80; BP 96/78; PULSE 68; RESP 20; TEMP 36.2; O2SAT 94
--- NOTE | 2022-04-21 09:10 | OP.COLON_ITS ---
Patient Name: Luis Angel Dixon Procedure Date: 04/21/2022 8:38 AM Date of : 1950 Age: 71 Procedure: Colonoscopy Indications: Abnormal CT of the GI tract Providers: Zeb Villarreal MD Referring MD: Zeb Villarreal MD Medicines: See the Anesthesia note for documentation of the administered medications Patient Profile: Last Colonoscopy: 5 years ago. Complications: No immediate complications. Procedure: Pre-Anesthesia Assessment: - Prior to the procedure, a History and Physical was performed, and patient medications and allergies were reviewed. The patient's tolerance of previous anesthesia was also reviewed. The risks and benefits of the procedure and the sedation options and risks were discussed with the patient. All questions were answered, and informed consent was obtained. Prior Anticoagulants: The patient has taken no previous anticoagulant or antiplatelet agents. ASA Grade Assessment: II - A patient with mild systemic disease. After reviewing the risks and benefits, the patient was deemed in satisfactory condition to undergo the procedure. After I obtained informed consent, the scope was passed under direct vision. Throughout the procedure, the patient's blood pressure, pulse, and oxygen saturations were monitored continuously. The colonoscope was introduced through the anus and advanced to the cecum, identified by appendiceal orifice and ileocecal valve. The colonoscopy was performed without difficulty. The patient tolerated the procedure well. The quality of the bowel preparation was good. The ileocecal valve and the appendiceal orifice were photographed. Scope In: 8:45:51 AM Scope Withdrawal Time 0 hours 7 minutes 25 seconds Scope Out: 9:03:52 AM Total Procedure Duration Time 0 hours 18 minutes 1 second Findings: The digital rectal exam findings include enlarged prostate. Multiple diverticula were found in the sigmoid colon and descending colon. The exam was otherwise without abnormality. Impression: - Enlarged prostate found on digital rectal exam. - Diverticulosis in the sigmoid colon and in the descending colon. - The examination was otherwise normal. - No specimens collected. Recommendation: - Discharge patient to home. - Resume previous diet. - Continue present medications. - Repeat colonoscopy in 10 years for screening purposes. Procedure Code(s): --- Professional --- 56260, Colonoscopy, flexible; diagnostic, including collection of specimen(s) by brushing or washing, when performed (separate procedure) Diagnosis Code(s): --- Professional --- N40.0, Benign prostatic hyperplasia without lower urinary tract symptoms K57.30, Diverticulosis of large intestine without perforation or abscess without bleeding R93.3, Abnormal findings on diagnostic imaging of other parts of digestive tract CPT copyright 2017 [employer]. All rights reserved. The codes documented in this report are preliminary and upon medical insurance coder review may be revised to meet current compliance requirements. Zeb Villarreal MD 04/21/2022 9:09:37 AM This report has been signed electronically. Number of Addenda: 0 Note Initiated On: 04/21/2022 8:38 AM
--- NOTE | 2022-04-21 09:11 | OP.CCLET_ITS ---
04/21/2022 Umair Scales MD [address] [place] [address] [place] [address] Re : Colonoscopy procedure for Luis Angel Dixon Dear Dr. Scales This procedure was performed on Thursday, April 21, 2022. My impressions and recommendations are as follows: Impressions : - Enlarged prostate found on digital rectal exam. - Diverticulosis in the sigmoid colon and in the descending colon. - The examination was otherwise normal. - No specimens collected. Recommendations : - Discharge patient to home. - Resume previous diet. - Continue present medications. - Repeat colonoscopy in 10 years for screening purposes. My findings are described in the full procedure note, which is enclosed. If I can be of further assistance, please feel free to contact me at Doctor phone number(s): Work: . Sincerely, Zeb Villarreal MD 04/21/2022 9:09:37 AM This report has been signed electronically.
[2022-04-21 09:14] VITALS: BP 106/80; BP 111/76; PULSE 63; RESP 18; O2SAT 96
[2022-04-21 09:20] VITALS: BP 106/80; BP 125/80; PULSE 60; RESP 18; O2SAT 97
[2022-04-21 09:27] VITALS: BP 106/80; BP 117/84; PULSE 56; RESP 18; TEMP 36.8; O2SAT 96
[2022-04-21 09:57] VITALS: BP 106/80
== END 2022-04-21 10:17 | disposition home or self-care (01) ==
LOC: EN 07:27 → AC 07:28
PROVIDERS: PCP Internal Medicine; Referring Provider Internal Medicine; Visit Provider Surgery
PROC: 0DJD8ZZ Inspection of Lower Intestinal Tract, Via Natural or Artificial Opening Endoscopic (ICD-10-PCS; CPT 45378; principal; 2022-04-21 08:25)
DX: R93.3 Abnormal findings on diagnostic imaging of other parts of digestive tract (principal); E11.9 Type 2 diabetes mellitus without complications; K40.90 Unilateral inguinal hernia, without obstruction or gangrene, not specified as recurrent; K57.30 Diverticulosis of large intestine without perforation or abscess without bleeding; Z87.891 Personal history of nicotine dependence; N40.0 Benign prostatic hyperplasia without lower urinary tract symptoms; R53.83 Other fatigue
CPT/HCPCS: 45378; 82962; J7120

== ENCOUNTER 2022-05-28 09:05 | Day surgery (SDC) | payer MEDICARE, SELFPAY ==
--- NOTE | 2022-05-15 09:14 | EKG12_ITS ---
Test Reason : PRE OP Blood Pressure : / mmHG Vent. Rate : 064 BPM Atrial Rate : 064 BPM P-R Int : 186 ms QRS Dur : 080 ms QT Int : 398 ms P-R-T Axes : 027 -27 020 degrees QTc Int : 410 ms Normal sinus rhythm Normal ECG Confirmed by JOSE MANUEL SMITH, MYLES ([id number]), technical writer and editor ELEUTERIO YAN ([id number]) on 05/15/2022 12:42:33 PM Referred By: Zeb Villarreal Confirmed By:MYLES RICHARD MD
[2022-05-15 10:25] LABS: Hematocrit 40.4 % (40-54); Hemoglobin 13.5 g/dL (13.0-16.5); Mean Corp Hgb Conc 33.4 g/dL (32-36); Mean Corpuscular Hgb 30.3 pg (27.0-32.0); Mean Corpuscular Volume 90.8 fL (80-94); Mean Platelet Vol. 9.9 fl (6.2-12.0); Platelet Count 261 K/mm3 (150-450); RBC Distribution Width CV 13.7 % (11.6-14.6); RBC Distribution Width SD 45.5 fl (35.1-43.9); Red Blood Count 4.45 M/mm3 (4.6-6.2); White Blood Count 7.6 K/mm3 (4.4-11.0)
[2022-05-15 11:01] LABS: Anion Gap 8 (5-15); BUN 17 mg/dL (7-18); BUN/Creat Ratio 15.9 RATIO (10-20); Calcium,Total 9.4 mg/dL (8.5-10.1); Chloride 108 mmol/L (98-107); Creatinine, Serum 1.07 mg/dL (0.70-1.30); EST Glomerular Filtration Rate 73 mL/min (>60); Est Glom Filt Rate - Afr Amer 88 mL/min (>60); Glucose 157 mg/dL (74-106); Potassium 3.7 mmol/L (3.5-5.1); Sodium Level 142 mmol/L (136-145)
[2022-05-15 12:59] LABS: Hemoglobin A1c 6.2 % (3.8-5.6)
[2022-05-28] VITALS (10 sets, daily range): BP systolic 104–126; BP diastolic 70–85; PULSE 55–78; RESP 16–18; TEMP 36.1–36.8; O2SAT 93–100; BMI 29.7
[2022-05-28] MEDS: Lactated Ringers 1,000 ML 15 ML IV (09:57)
--- NOTE | 2022-05-28 10:07 | HP.PCM_ITS ---
History and Physical Date of Admission: 05/28/22 Visit Reasons:?INGUINAL HERNIA Chief Complaint: inguinal hernia Systems Integrator Required: No Accompanied by: Is patient in pain?: No Allergies ondansetron [From Zofran] Adverse Reaction (Severe, Verified 04/10/22 07:47) dizziness, headache Medications cholecalciferol (vitamin D3) 50 mcg (2,000 unit) tablet 5,000 unit PO DAILY 10/26/13 [History Confirmed 04/10/22] multivitamin 1 ea PO DAILY 06/06/16 [History Confirmed 04/10/22] blood-glucose meter (FreeStyle Lite Meter kit) #1 ea 01/31/20 [Rx Confirmed 04/10/22] ferrous sulfate 325 mg (65 mg iron) tablet (FerrouSul) 325 mg PO QODAY 09/30/20 [History Confirmed 04/10/22] coffee extract 50 mg-phosphatidyl serine 50 mg chewable tablet (Neuriva Original) 1 tab PO DAILY 01/28/21 [History Confirmed 04/10/22] triamcinolone acetonide 0.1 % topical cream 1 applic topical BID PRN rash, itching #80 grams 05/16/21 [Rx Confirmed 04/10/22] tamsulosin 0.4 mg capsule 0.4 mg PO DAILY 06/11/21 [History Confirmed 04/10/22] blood sugar diagnostic (FreeStyle Lite Strips) #100 ea 12/18/21 [Rx Confirmed 04/10/22] lancets 28 gauge (FreeStyle Lancets) #200 ea 12/18/21 [Rx Confirmed 04/10/22] metformin 850 mg tablet 850 mg PO BID #180 tabs 02/04/22 [Rx Confirmed 04/10/22] rosuvastatin 5 mg tablet 5 mg PO DAILY #90 tabs 02/10/22 [Rx Confirmed 04/10/22] PFSH Medical History? Abdominal pain BPH (benign prostatic hyperplasia) Chronic headaches Diarrhea Diverticular disease of colon Elevated blood pressure reading Erectile dysfunction Flu vaccine need Hearing loss History of malignant neoplasm of penis Hyperlipidemia Kidney stone Lumbar radiculopathy Numbness and tingling in both hands POLLO (obstructive sleep apnea) Penis cancer Right inguinal hernia Trigger finger of right hand Type 2 diabetes mellitus Vertigo Surgical History? History of lymph node biopsy History of tonsillectomy penisectomy Family History? Brother Hypertension CancerSister CancerMother Cancer Social History? Smoking Status:? Former smoker how long ago did patient quit smoking:? 1984, 1pk/day second hand exposure:? Yes alcohol intake:? never substance use type:? does not use caffeine:? Yes Type: coffee frequency:? 3-4 times per week HPI HPI HPI: JACKELYN LOPEZ, is a 71 M who presents to the office today for surgical consultation regarding a right inguinal hernia.? The patient is referred by Dr. Umair Scales and a written copy of my surgical consult recommendations will return to her.? The patient is complaining of right groin pain.? It is of note however that quite recently on March 13, 2022 he was seen in the emergency room for periumbilical abdominal pain.? A CT scan was obtained suggesting possible focal diverticulitis of the splenic flexure mild inflammation adjacent to the tail the pancreas possibly reactive but cannot exclude focal pancreatitis.? Right inguinal hernia was identified with small bowel involvement.? Additionally there was focal thickening of the sigmoid colon.? Direct visualization i.e. endoscopy was recommended.? The patient was treated with ciprofloxacin and metronidazole. He does not think that that hernia in the right groin is reducible.? He does not recall a distinct event.? It is intermittently uncomfortable. He has had penile cancer.? He has had bilateral femoral node dissections.? That was performed at [facility].? He is currently considered cancer free. He has had perhaps 3 previous colonoscopies.? He has had at least 5 bouts of diverticulitis.? He states corn is an offending factor Believes his most recent colonoscopy was 5 years ago ROS General General: Yes fatigue; No weight change, appetite, colon cancer, breast cancer or weakness HEENT HEENT: No difficulty swallowing, eye injury, eye surgery, swollen glands or hoarseness Endo Endocrine: Yes diabetes mellitus; No thyroid disease, thyroid cancer, Hair loss, heat intolerance or cold intolerance Skin Skin: No rash or changing moles Breast Breast: No left breast lump, right breast lump, nipple discharge, breast pain, abnormal mammogram, abnormal US or breast enlargement Musc Musculoskeletal: Yes back problems and arthritis; No rheumatoid arthritis, gout or joint pain Cardio Cardiovascular: No murmur, pacemaker, heart disease, atrial fibrillation, high blood pressure, heart attack, heart stent, palpitations, shortness of breat with exertion or chest pain Psych Psychiatric: No depression, anxiety or hearing voices Resp Respiratory: No shortness of breath, Yes sleep apnea, No cough, No COPD, No asthma, No emphysema and No wheezing Gastro Gastrointestinal: No abdominal pain, No nausea or vomiting, No diarrhea, No constipation, No blood in stool, No acid reflux, No hemorrhoids, No ulcers, No gallbladder problem and No black,tarry stools Blue Hematologic: No blood thinners, No blood disorders, No bleeding, No anemia and No blood clots Neuro Neurologic: No system reviewed and no additional complaints, except as documented, No as per HPI, No abnormal gait, No abnormal hearing, No abnormal movements, No abnormal speech, No behavioral changes, No burning sensations, No confusion, No convulsions, No disequilibrium, No dizziness, No localized weakness, No frequent falls, No headache(s), No lack of coordination, No loss of vision, No memory loss, No numbness, No other visual disturbances, No radicular pain, No restless legs, No sensory deficit, No syncope, No tingling, No tremor(s), No weakness and No other Exam Const General: cooperative, healthy appearing, comfortable and no acute distress Nutritional Appearance: overweight [facility] Head: normal to inspection Eyes General: appearance normal, both eyes and all related structures Neck Neck: normal visual inspection Resp Effort & Inspection: normal respiratory effort Auscultation: clear to auscultation bilaterally Cardio Rate: regular rate Rhythm: regular rhythm GI Inspection: normal to inspection Other: Soft, nontender, Other: Surgically absent penis.? Left groin solid intact.? Obvious right inguinal hernia.? With supine position hernia is reducible. Musc Cervical Spine: normal cervical lordosis Skin General: no rashes or lesions noted Neuro General: patient alert and patient awake Extrem General: no calf tenderness Other: Patient wear support hose Psych Appearance: grossly normal Assessment and Plan Assessment and Plan (1) Right inguinal hernia: ?Status:?Chronic (2) Abnormal CT scan, colon: ?Status:?Acute Plan The patient has an abnormal CT scan of the hepatic flexure and of the pancreatic tail and of the sigmoid colon.? Particular regarding the sigmoid colon endoscopic evaluation was recommended per radiology.? I proposed to the patient a colonoscopy with possible biopsy or polypectomy as indicated.? He has had at least 5 bouts of diverticulitis.? Inspection of the entire colon but particularly focused attention on the sigmoid and hepatic flexure will be pursued.? He has had an opportunity to ask and have questions answered and he is interested in pursuing this investigation.? Previous colonoscopy about 5 years ago. The patient has a symptomatic right inguinal hernia with small bowel involv ement.? Fortunately is still reducible.? Based upon his body habitus I propose for him a laparoscopic right inguinal hernia repair with mesh.? I discussed the technique, benefit, risk of alternatives.? No guarantees of success have been offered.? I would like to obtain records from [facility] from his previous node dissection to hopefully confer that this did not extend into the external iliac area. We will schedule and try to expedite his care.? I very much appreciate the kind option of assisting with the surgical management. Copy: Dr. Umair Villarreal M.D., F.A.C.S I have re-examined the patient. There are no clinical changes since date of exam. Zeb Villarreal M.D., F.A.C.S.
[2022-05-28 10:26] LABS: Bedside Glucose 113 mg/dL (74-106)
[2022-05-28] MEDS: Cefazolin 2 GM in 0.9% Normal Saline 100 ML IV (10:50)
--- NOTE | 2022-05-28 10:51 | DCINST_ITS ---
Discharge Instructions Procedure General Surgery Diet Discharge Diet: Light diet - advance as tolerated (if you have questions about your diet instructions, please talk to you doctor.) Activity Discharge Activity: May Not Drive (for 3-5 days or while taking narcotic pain medicine.) May shower in (days): 1 Lifting Restrictions: 10 pounds Dressing / Incision Call your doctor if your incision/area has: Continuous Slow Oozing, Sudden Increased Bleeding, Increased Pain/ Swelling, Increased Redness and Foul Smelling Discharge Call your doctor if you observe: Fever of 101 or Higher Suture Line Care: Avoid Pulling/Pushing and Avoid Pinching/Bending Additional Dressing/Incision Instructions:: Change or remove dressing in 4 days. Leave steri-strips in place for 1 week. Follow Up Care Please Follow Up With: Zeb Villarreal MD When: Call [phone] to make an appointment to be seen in about 10 days. Test Results: Test results from this visit will be discussed in further detail at your follow- up appointment, if applicable. Discharge Plan Admission Primary Reason for Your Visit: Right inguinal hernia Attending Provider: Zeb Villarreal Primary Care Provider: Umair Scales Discharge Orders/Prescriptions Prescriptions: New hydrocodone-acetaminophen 5-325 mg tablet 1 tab PO Q6H PRN (Reason: pain) 2 Days Qty: 5 0RF Continued (DME) blood-glucose meter [FreeStyle Lite Meter] Kit See Rx Instructions .ROUTE .MEDSUPPLY Qty: 1 0RF Rx Instructions: As directed, check blood glucose daily for type 2 DM ferrous sulfate [FerrouSul] 325 mg (65 mg iron) tablet 325 mg PO QODAY tamsulosin 0.4 mg capsule 0.4 mg PO DAILY metformin 850 mg tablet 850 mg PO BID Qty: 180 3RF cholecalciferol (vitamin D3) 2,000 UNIT tablet 5,000 unit PO DAILY multivitamin 1 EACH tablet 1 ea PO DAILY Neuriva Original 50-50 mg Tablet,Chewable 1 tab PO DAILY triamcinolone acetonide [Triderm] 0.1 % cream 1 applic topical BID PRN (Reason: rash, itching) (DME) FreeStyle Lite Strips Strip See Rx Instructions .ROUTE .MEDSUPPLY Qty: 100 3RF Rx Instructions: check blood glucose daily for type 2 DM (DME) lancets [FreeStyle Lancets] 28 gauge misc See Rx Instructions .ROUTE .MEDSUPPLY Qty: 200 3RF Rx Instructions: check blood glucose daily for type 2 DM rosuvastatin 5 mg tablet 5 mg PO DAILY Qty: 90 3RF Rx Instructions: TAKE 1 TABLET BY MOUTH EVERY DAY Referrals / Follow Up: Umair Scales MD [Primary Care Provider] - Disposition Disposition (needs filled in before D/C Order can be placed): Home, Self Care
--- NOTE | 2022-05-28 12:27 | OP.PCM_ITS ---
Report of Operation Date of Procedure: 05/28/22 Pre-Operative Diagnosis: Right inguinal hernia with small bowel involvement Post-Operative Diagnosis: Large indirect right inguinal hernia Surgery/Procedure Performed:: Laparoscopic right inguinal herniorrhaphy with extra-large Bard 3D max mesh Lot number [id number], reference [id number], expiry date 11/24/2026 Description of Surgical Findings:: Timeout informed consent was obtained. 79-year-old gentleman was taken to the operating placed on the table underwent general endotracheal intubation esthesia Ancef 2 g were given intravenously the abdomen scrotum was sterilely prepped and draped 0.5% Marcaine was used as a local anesthetic throughout the procedure a total of 30 cc was used skin sites were. Excised a vertical infraumbilical incision was created at the umbilicus sharp dissection carried down through the subtenons tissue the fascia was incised attempt was made to place a varies needle however clean access could not be achieved I then attempted a direct approach but with deep dissection still could not obtain what I thought was clean uncomplicated access. So then I switched to a 5 mm trocar in the right mid abdomen and using a [employer] technology got clean access to the abdomen the abdomen was insufflated with CO2 to a pressure of 10 mmHg pressure inspection revealed no evidence of any intra-abdominal injury the umbilical site still has a peritoneum mostly intact and spigelian a Lugo catheter was placed. A 5 mm trocar was placed in the left midabdomen. The left groin appeared to be solid and intact there was a large indirect right inguinal hernia but Fortune without current bowel involvement. Using laparoscopic control a ilioinguinal nerve block was performed with 0.25% Marcaine. The peritoneum was incised lateral to medial and then the peritoneum was completely bluntly dissected free. Tedious dissection was used to completely dissect free a very large indirect sac. Having achieved that I had view of the direct space indirect and femoral area. The extra-large Bard 3D max mesh was placed. It was carefully positioned and it was secured laterally superiorly and medially with secure strap. Excellent positioning was felt to have been achieved with good coverage of the defect. The peritoneum was then approximated to itself with secure strap and Hem-o-lamin clips. Complete obliteration to the mesh was achieved. The bowel was again inspected and again noted to be completely normal without consequence. The abdomen was allowed to deflate of the CO2 through an antiviral valve. The fascia at the umbilicus approximated with a running 0 Vicryl. Skin edges approximated opted for Monocryl subdermal stitches. Steri-Strips Telfa OpSite dressings applied. Sponge and instrument and needle counts were reported to the surgeon to be correct. Specimen none. Drains none. Blood loss minimal. The patient was taken to the recovery room in satisfactory addition without apparent complication Zeb Villarreal M.D., F.A.C.S. Surgeon: Zeb Villarreal
[2022-05-28 13:26] LABS: Bedside Glucose 137 mg/dL (74-106)
[2022-05-28] MEDS: HYDROcodone Bitartrate/Apap 5/325 Tablet PO (14:09)
== END 2022-05-28 16:54 | disposition home or self-care (01) ==
LOC: SDC 09:06 → AC 09:07
PROVIDERS: Anesthesiology; PCP Internal Medicine; Referring Provider Surgery; Visit Provider Surgery
PROC: (CPT 49650; principal; 2022-05-28 12:45)
DX: K40.90 Unilateral inguinal hernia, without obstruction or gangrene, not specified as recurrent (principal); Z87.891 Personal history of nicotine dependence; G47.33 Obstructive sleep apnea (adult) (pediatric); R93.3 Abnormal findings on diagnostic imaging of other parts of digestive tract; E78.5 Hyperlipidemia, unspecified; Z99.89 Dependence on other enabling machines and devices; Z85.49 Personal history of malignant neoplasm of other male genital organs; Z97.3 Presence of spectacles and contact lenses; Z79.899 Other long term (current) drug therapy
CPT/HCPCS: 49650; 00840; 36415; 80048; 82962; 83036; 85027; 93005; J7120; C1781; J2405

== ENCOUNTER → 2022-07-28 | Outpatient (CLI) | payer MEDICARE, SELFPAY ==
[2022-07-28 16:00] LABS: PSA,Total - Annual Screen 2.81 ng/mL (0.00-4.00)
== END | disposition home or self-care (01) ==
LOC: LAB 14:47
PROVIDERS: PCP Internal Medicine; Visit Provider Urology
DX: Z12.5 Encounter for screening for malignant neoplasm of prostate (principal)
CPT/HCPCS: 36415; 84153; G0103

== ENCOUNTER 2022-10-13 15:15 | Emergency (ER) | payer MEDICARE, SELFPAY ==
[2022-10-13 15:15] VITALS: BP 116/77; PULSE 65; RESP 18; TEMP 36.3; O2SAT 98; BMI 28.8
[2022-10-13 15:57] LABS: Absolute Lymphocyte Count 1.95 X10^3/uL (0.83-4.51); Absolute Neutrophil Count 10.3 X10^3/uL (2.0-7.7); Basophil# 0.05 X10^3/uL; Basophil% 0.4 % (0-1); Eosinophil# 0.12 X10^3/uL; Eosinophils% 0.9 % (0-5); Hematocrit 40.8 % (40-54); Hemoglobin 13.7 g/dL (13.0-16.5); Lymphocyte # 1.95 X10^3/ul (0.83-4.51); Lymphocyte % 14.3 % (19-41); Mean Corp Hgb Conc 33.6 g/dL (32-36); Mean Corpuscular Volume 89.3 fL (80-94); Mean Platelet Vol. 9.8 fl (6.2-12.0); Monocyte# 1.15 X10^3/uL; Monocyte% 8.4 % (0-10); NRBC Flagged by Analyzer 0 % (0-5); Neutrophil # 10.31 X10^3/uL (2.7-7.7); Neutrophil % 75.6 % (47-70); Platelet Count 251 K/mm3 (150-450); RBC Distribution Width CV 13.6 % (11.6-14.6); RBC Distribution Width SD 44.3 fl (35.1-43.9); Red Blood Count 4.57 M/mm3 (4.6-6.2); White Blood Count 13.6 K/mm3 (4.4-11.0)
[2022-10-13 16:20] LABS: Anion Gap 7 (5-15); BUN 18 mg/dL (7-18); BUN/Creat Ratio 18.2 RATIO (10-20); Calcium,Total 9.3 mg/dL (8.5-10.1); Chloride 106 mmol/L (98-107); Creatinine, Serum 0.99 mg/dL (0.70-1.30); EST Glomerular Filtration Rate 79 mL/min (>60); Est Glom Filt Rate - Afr Amer 96 mL/min (>60); Estimated Creatinine Clearance 66.21 ml/min; Glucose 110 mg/dL (74-106); Potassium 4.2 mmol/L (3.5-5.1); Sodium Level 140 mmol/L (136-145)
--- NOTE | 2022-10-13 16:24 | CT_ITS ---
EXAM: CT ABDOMEN AND PELVIS WITHOUT INTRAVENOUS CONTRAST CLINICAL INDICATION: lower abd pain TECHNIQUE: Helically acquired images were obtained of the abdomen and pelvis without intravenous contrast. This CT exam was performed using one or more of the following dose reduction techniques: automated exposure control, adjustment of the mA and/or kV according to patient size, and/or use of iterative reconstruction technique. This report was created using [employer] report generation technology. COMPARISON: 03/13/2022 FINDINGS: LOWER THORAX: Unremarkable. Lung bases are clear. No cardiomegaly. No significant pericardial effusion. ABDOMEN: LIVER: Unremarkable. Homogeneous. GALLBLADDER AND BILE DUCTS: Unremarkable. No calcified gallstones. No gallbladder distention or wall edema. No intra- or extrahepatic biliary ductal dilation. PANCREAS: Unremarkable. No focal cystic mass. SPLEEN: Unremarkable. Normal size without focal cystic or solid mass. ADRENALS: Unremarkable. No nodules. KIDNEYS AND URETERS: There is a low-density mass in the right kidney compatible with a simple cyst. No hydronephrosis. STOMACH AND BOWEL: There are diverticula on the descending and sigmoid colon. There is inflammation surrounding the proximal sigmoid colon compatible with acute diverticulitis. There is no abscess or perforation. No stomach or bowel distention. PELVIS: APPENDIX: No evidence of acute appendicitis. BLADDER: Unremarkable. REPRODUCTIVE: Unremarkable as visualized. No mass. ABDOMEN and PELVIS: INTRAPERITONEAL SPACE: Unremarkable. No ascites or other fluid collection. No free air. BONES/JOINTS: Unremarkable. No suspicious lytic or blastic abnormality. SOFT TISSUES: Unremarkable. No discrete abdominal or pelvic wall hernia. VASCULATURE: Unremarkable. Abdominal aorta is non-dilated. LYMPH NODES: Unremarkable. No enlarged lymph nodes. CT/Abdomen/Pelvis without Cont IMPRESSION: Descending and sigmoid colon diverticulosis with inflammation surrounding the proximal sigmoid colon compatible with acute diverticulitis. There is no abscess or perforation. Electronically Signed: Clay Ramirez MD at 17:24 EST ,
--- NOTE | 2022-10-13 16:27 | ED.VIS.GI ---
HPI HPI - GI History of Present Illness Chief Complaint: Abd Pain Informant: patient Narrative Narrative: Lower abdominal pain since last evening able to sleep however persistent throughout the day. No fevers or chills. No nausea or vomiting. Bowel movement today that was normal. Nonbloody. History of multiple diverticulitis bouts in the past last time a year ago this feels similar. No urinary symptoms. Prior similar symptoms: Yes PFSH PFSH Medical History Abdominal pain Bilateral foot pain BPH (benign prostatic hyperplasia) Chronic headaches CPAP (continuous positive airway pressure) dependence Diarrhea Diverticular disease of colon Elevated blood pressure reading Erectile dysfunction Hearing loss History of malignant neoplasm of penis Hyperlipidemia Kidney stone Lumbar radiculopathy Numbness and tingling in both hands POLLO (obstructive sleep apnea) Penis cancer Right inguinal hernia Sleep apnea Trigger finger of right hand Type 2 diabetes mellitus Vertigo Wears glasses Home Medications cholecalciferol (vitamin D3) 50 mcg (2,000 unit) tablet 5,000 unit PO DAILY 10/26/13 [History Last Taken 05/27/22] multivitamin 1 ea PO DAILY 06/06/16 [History Last Taken 05/27/22] blood-glucose meter (FreeStyle Lite Meter kit) #1 ea 01/31/20 [Rx Last Taken Unknown] ferrous sulfate 325 mg (65 mg iron) tablet (FerrouSul) 325 mg PO QODAY 09/30/20 [History Last Taken 05/27/22] coffee extract 50 mg-phosphatidyl serine 50 mg chewable tablet (Neuriva Original) 1 tab PO DAILY 01/28/21 [History Last Taken 05/27/22] tamsulosin 0.4 mg capsule 0.4 mg PO DAILY 06/11/21 [History Last Taken 05/27/22] blood sugar diagnostic (FreeStyle Lite Strips) #100 ea 12/18/21 [Rx Last Taken Unknown] lancets 28 gauge (FreeStyle Lancets) #200 ea 12/18/21 [Rx Last Taken Unknown] metformin 850 mg tablet 850 mg PO BID #180 tabs 02/04/22 [Rx Last Taken 05/27/22] rosuvastatin 5 mg tablet 5 mg PO DAILY #90 tabs 02/10/22 [Rx Last Taken 05/27/22] triamcinolone acetonide 0.1 % topical cream (Triderm) 1 applic topical BID PRN rash, itching 04/15/22 [History Last Taken 05/27/22] saliva substitute combo no.9 (Biotene Dry Mouth Oral Rinse mouthwash) 15 ml mucous membrane BID-QID PRN dry mouth #237 mL 10/06/22 [Rx Last Taken Unknown] cefdinir 300 mg capsule 300 mg PO BID #20 caps 10/13/22 [Rx Last Taken Unknown] metronidazole 500 mg tablet 500 mg PO Q8H #30 tabs 10/13/22 [Rx Last Taken Unknown] Allergy/AdvReac Type Severity Reaction Status Date / Time ondansetron [From Zofran] AdvReac Severe dizziness, Verified 10/13/22 15:15 headache Family History Brother Hypertension Cancer Sister Cancer Mother Cancer Surgical History History of lymph node biopsy History of right inguinal hernia repair History of tonsillectomy Hx of colonoscopy penisectomy Social History Smoking Status: Former smoker how long ago did patient quit smokin, 1pk/day second hand exposure: Yes alcohol intake: never substance use type: does not use caffeine: Yes Type: coffee frequency: 3-4 times per week ROS ROS ED Constitutional Constitutional ED: Denies chills, fever(s) or sweats Eyes Eyes: Denies change in vision ENT ENT ED: Denies dysphagia or sore throat Cardiovascular Cardiovascular: Denies chest pain, leg edema, palpitations or racing heartbeat Respiratory/Chest Respiratory/Chest: Denies cough, dyspnea or dyspnea on exertion Gastrointestinal Gastrointestinal: Reports abdominal pain; Denies diarrhea, nausea or vomiting Genitourinary Genitourinary ED: Denies dysuria, hematuria or urinary frequency Musculoskeletal Musculoskeletal: Denies back pain, extremity pain or neck pain Integumentary Denies rash or wounds Neurologic Neurologic: Denies headache(s), paresthesias or weakness EXAM Physical Exam Const Vital Signs: 10/13/22 15:15 Temperature 97.4 F L Temperature Source Temporal Pulse Rate 65 Respiratory Rate 18 Blood Pressure 116/77 Blood Pressure Mean 90 Pulse Ox 98 Oxygen Delivery Method Room Air Positive well nourished and well developed General Appearance ED: well developed and NAD HEENT Reports moist mucous membranes normocephalic and atraumatic Eyes PERRL, EOMs intact bilaterally and conjunctivae normal General Eye ED: Yes normal appearance of both eyes Neck no lymphadenopathy and supple General: Negative for tenderness Chest Wall Chest: Negative for tenderness Resp normal respiratory effort and normal air movement Effort and Inspection: symmetric chest movement; Negative for respiratory distress Cardio regular rate, regular rhythm and no murmurs Peripheral Pulses: pulses 2+ throughout GI normal to inspection, nondistended, normoactive bowel sounds GI Narrative: Mild pain suprapubic left lower quadrant no guarding or rebound. Palpation: Negative for guarding or rebound tenderness present Back/Spine no CVA tenderness and no thoracic nor lumbar tenderness Extremity normal to inspection General Extremety ED: Negative for edema or tenderness General Extremity: Negative for edema Neuro oriented x3 and no sensory deficits noted Sensorium / Orientation: awake and alert Skin no rashes or lesions noted and no wounds MDM MDM MDM Narrative Medical decision making narrative: Interventions / MDM: Differential diagnosis: Diverticulitis, musculoskeletal abdominal pain, Diagnosis considered but do not suspect: UTI however no symptoms. My EKG interpretation: N/A Imaging independently reviewed and interpreted by myself: CT abdomen pelvis uncomplicated sigmoid diverticulitis also read by radiology External documents reviewed: N/A Test considered but not ordered:N/A ED course: Patient nonsurgical abdomen. Declines any medications IV fluids started labs White count 13.6 creatinine 0.9 and urine was only noted leukocytes he has no urinary symptoms. CT scan notes uncomplicated sigmoid diverticulitis. Reevaluation remained stable. He started on antibiotics of Omnicef and Flagyl. He does not drink alcohol. He has had multiple recurrent diverticulitis. He will follow with the PCP also given his on-call surgeon for follow-up for outpatient discussion for his recurrent symptoms. Return precaution discussed with the patient and significant other. All questions were answered. Re-evaluation: stable Disposition discussed with patient/family/significant other: Patient and significant other Case discussed with consulting clinician: N/A Lab Data Attestation: I reviewed the patient's lab results. Labs: Laboratory Results - last 24 hr 10/13/22 10/13/22 10/13/22 15:45 15:45 17:30 WBC 13.6 H RBC 4.57 L Hgb 13.7 Hct 40.8 MCV 89.3 MCH 30.0 MCHC 33.6 RDW Std Deviation 44.3 H RDW Coeff of Andrea 13.6 Plt Count 251 MPV 9.8 Immature Gran % (Auto) 0.400 Neut % (Auto) 75.6 H Lymph % (Auto) 14.3 L [place] % (Auto) 8.4 Eos % (Auto) 0.9 Baso % (Auto) 0.4 Absolute Neuts (auto) 10.3 H Absolute Lymphs (auto) 1.95 Nucleated RBC % 0 Sodium 140 Potassium 4.2 Chloride 106 Carbon Dioxide 27.0 Anion Gap 7 BUN 18 Creatinine 0.99 Estim Creat Clear Calc 66.21 Est GFR (MDRD) Af Amer 96 Est GFR (MDRD) Non-Af 79 BUN/Creatinine Ratio 18.2 Glucose 110 H Calcium 9.3 Urine Color Yellow Urine Clarity Clear Urine pH 6.0 Ur Specific [place] 1.020 Urine Protein Negative Urine Glucose (UA) Normal Urine Ketones Negative Urine Occult Blood Negative Urine Nitrite Negative Urine Bilirubin Negative Urine Urobilinogen Normal Ur Leukocyte Esterase 25 H Urine RBC 0 SEEN Urine WBC 0-5 SEEN Ur Squamous Epith Cells 0 SEEN Urine Bacteria 0 SEEN Urine Mucus 0 SEEN Radiography Diagnostic Testing: Clinical Impression(s) from Imaging Studies Abdomen/Pelvis CT 10/13/22 16:24 IMPRESSION: Descending and sigmoid colon diverticulosis with inflammation surrounding the proximal sigmoid colon compatible with acute diverticulitis. There is no abscess or perforation. Electronically Signed: Clay Ramirez MD at 17:24 EST , Discharge Plan Triage Chief Complaint: Abd Pain ED Provider: Pj Crystal Dx/Rx/DC Orders Clinical Impression: Diverticulitis of sigmoid colon, Abdominal pain, LLQ Instructions: Diverticulitis Dc Prescriptions: New metronidazole [metronidazole] 500 mg tablet 500 mg PO Q8H Qty: 30 0RF cefdinir 300 mg capsule 300 mg PO BID Qty: 20 0RF No Action (DME) blood-glucose meter [FreeStyle Lite Meter] Kit See Rx Instructions .ROUTE .MEDSUPPLY Qty: 1 0RF Rx Instructions: As directed, check blood glucose daily for type 2 DM ferrous sulfate [FerrouSul] 325 mg (65 mg iron) tablet 325 mg PO QODAY tamsulosin 0.4 mg capsule 0.4 mg PO DAILY Biotene Dry Mouth Oral Rinse Mouthwash 15 ml mucous membrane BID-QID PRN (Reason: dry mouth) Qty: 237 3RF Rx Instructions: swish for 15-30 secs , then spit out; do not swallow metformin 850 mg tablet 850 mg PO BID Qty: 180 3RF cholecalciferol (vitamin D3) 2,000 UNIT tablet 5,000 unit PO DAILY multivitamin 1 EACH tablet 1 ea PO DAILY Neuriva Original 50-50 mg Tablet,Chewable 1 tab PO DAILY triamcinolone acetonide [Triderm] 0.1 % cream 1 applic topical BID PRN (Reason: rash, itching) (DME) FreeStyle Lite Strips Strip See Rx Instructions .ROUTE .MEDSUPPLY Qty: 100 3RF Rx Instructions: check blood glucose daily for type 2 DM (DME) lancets [FreeStyle Lancets] 28 gauge misc See Rx Instructions .ROUTE .MEDSUPPLY Qty: 200 3RF Rx Instructions: check blood glucose daily for type 2 DM rosuvastatin 5 mg tablet 5 mg PO DAILY Qty: 90 3RF Rx Instructions: TAKE 1 TABLET BY MOUTH EVERY DAY Primary Care Provider: Umair Scales Referrals: Umair Scales MD [Primary Care Provider] - 1 Week Amari Andrade MD [Med Staff - Active Staff] - 1-2 Weeks Activity Restrictions/Additional Instructions: Sigmoid diverticulitis uncomplicated. Take antibiotics as prescribed. Tylenol or ibuprofen as needed. Return if worsening symptoms. Follow-up with your doctor. Follow-up with surgery for discussion for multiple recurrent diverticulitis bouts. Disposition Disposition: Home, Self Care Discharge Date/Time: 10/13/22 18:27
[2022-10-13] MEDS: 0.9% Normal Saline 1,000 ML 999 ML IV (16:35)
[2022-10-13 17:37] LABS: Bacteria 0 SEEN /hpf (None Seen); Mucous, Urine 0 SEEN /hpf (<or=2+); Red Blood Cells-Urine 0 SEEN /hpf (0-5); Squamous Epithelial Cells - UA 0 SEEN /hpf (0-5)
[2022-10-13 17:46] LABS: Color, Urine Yellow (Yellow); Glucose, Dipstick Normal (Normal); Ketone-Dipstick Negative (Negative); Leukocyte Esterase-Dipstick 25 /ul (Negative); Nitrite-Dipstick Negative (Negative); Occult Blood-Urine Negative /ul (Negative); Protein-Dipstick Negative (Negative); Urine Bilirubin Dipstick Negative (Negative); Urine Clarity Clear (Clear); Urine Urobilinogen Normal (Normal)
[2022-10-13 18:10] LABS: White Blood Cells 0-5 SEEN /hpf (0-5)
[2022-10-13] MEDS: metroNIDAZOLE 500 MG Tablet PO (18:23)
[2022-10-13] MEDS: Cefdinir 300 MG Capsule PO (18:23)
== END 2022-10-13 18:27 | disposition home or self-care (01) ==
PROVIDERS: Emergency Provider Emergency Medicine; PCP Internal Medicine; Visit Provider Emergency Medicine
DX: K57.32 Diverticulitis of large intestine without perforation or abscess without bleeding (principal); E11.9 Type 2 diabetes mellitus without complications; Z87.891 Personal history of nicotine dependence; E78.5 Hyperlipidemia, unspecified; R10.32 Left lower quadrant pain; G47.33 Obstructive sleep apnea (adult) (pediatric); N40.0 Benign prostatic hyperplasia without lower urinary tract symptoms; Z85.49 Personal history of malignant neoplasm of other male genital organs
CPT/HCPCS: 74176; 80048; 81001; 85025; 96360; 99284; J7030; A4216

== ENCOUNTER → 2022-12-14 | Outpatient (CLI) | payer MEDICARE, SELFPAY ==
[2022-12-14 16:56] LABS: Microalbumin,Random Urine < 5.0 mg/L (NO RANGE EST.)
[2022-12-14 17:01] LABS: Hemoglobin A1c 6.1 % (3.8-5.6)
[2022-12-14 17:16] LABS: Absolute Lymphocyte Count 2.39 X10^3/uL (0.83-4.51); Absolute Neutrophil Count 3.6 X10^3/uL (2.0-7.7); Basophil# 0.06 X10^3/uL; Basophil% 0.9 % (0-1); Eosinophil# 0.18 X10^3/uL; Eosinophils% 2.6 % (0-5); Hematocrit 42.9 % (40-54); Lymphocyte # 2.39 X10^3/ul (0.83-4.51); Lymphocyte % 34.7 % (19-41); Mean Corp Hgb Conc 32.6 g/dL (32-36); Mean Corpuscular Hgb 29.5 pg (27.0-32.0); Mean Corpuscular Volume 90.3 fL (80-94); Mean Platelet Vol. 10.3 fl (6.2-12.0); Monocyte# 0.65 X10^3/uL; Monocyte% 9.4 % (0-10); NRBC Flagged by Analyzer 0 % (0-5); Neutrophil # 3.58 X10^3/uL (2.7-7.7); Platelet Count 252 K/mm3 (150-450); RBC Distribution Width CV 13.3 % (11.6-14.6); RBC Distribution Width SD 44.4 fl (35.1-43.9); Red Blood Count 4.75 M/mm3 (4.6-6.2); White Blood Count 6.9 K/mm3 (4.4-11.0)
[2022-12-14 17:32] LABS: ALB/GLOB Ratio 1.1 RATIO (0.9-2.4); AST(SGOT) 18 U/L (15-37); Alanine Aminotransfer ALT/SGPT 25 U/L (16-61); Albumin, Serum 3.9 g/dL (3.2-5.0); Alkaline Phosphatase 73 U/L (45-117); Anion Gap 3 (5-15); BUN 18 mg/dL (7-18); Calcium,Total 9.2 mg/dL (8.5-10.1); Chloride 106 mmol/L (98-107); Cholesterol 150 mg/dL (200); Creatinine, Serum 1.06 mg/dL (0.70-1.30); EST Glomerular Filtration Rate 73 mL/min (>60); Est Glom Filt Rate - Afr Amer 89 mL/min (>60); Globulin 3.7 g/dL (2.2-4.2); Glucose 113 mg/dL (74-106); High Density Lipoprotein 64 mg/dL; Potassium 4.1 mmol/L (3.5-5.1); Protein, Total 7.6 g/dL (6.4-8.2); Sodium Level 136 mmol/L (136-145); Triglycerides 149 mg/dL; Very Low Density Lipoprotein 30 mg/dL (5-40)
== END | disposition home or self-care (01) ==
LOC: BIMLAB 13:26
PROVIDERS: PCP Internal Medicine; Visit Provider Internal Medicine
DX: K57.30 Diverticulosis of large intestine without perforation or abscess without bleeding (principal); E11.69 Type 2 diabetes mellitus with other specified complication; E78.2 Mixed hyperlipidemia
CPT/HCPCS: 36415; 80053; 80061; 82043; 82570; 83036; 85025

== ENCOUNTER → 2023-04-23 | Outpatient (CLI) | payer MEDICARE, SELFPAY ==
--- NOTE | 2023-04-23 15:25 | RAD_ITS ---
STUDY: X-RAY - LEFT SHOULDER REASON FOR EXAM: Male, 72 years old. Bilateral shoulder pain. TECHNIQUE: 4 view(s) of the shoulder. COMPARISON: None. FINDINGS: Osteopenia. Mild arthrosis of the glenohumeral joint. Mild arthrosis of the AC joint. Sclerosis and cystic changes of the humeral head. The soft tissue structures are normal. Normal visualized pulmonary apex. RAD/Shoulder min 2 Views IMPRESSION: Osteopenia with osteoarthritic changes as described. No acute abnormality or erosive changes. Electronically Signed: Saul Pritchard MD at 15:53 EDT ,
--- NOTE | 2023-04-23 15:25 | RAD_ITS ---
STUDY: X-RAY - RIGHT SHOULDER REASON FOR EXAM: Male, 72 years old. Bilateral shoulder pain. TECHNIQUE: 4 view(s) of the shoulder. COMPARISON: Right shoulder x-rays dated May 31, 2018. FINDINGS: Osteopenia. Mild arthrosis of the glenohumeral joint. Mild arthrosis of the AC joint. Sclerosis and cystic change of the humeral head. The soft tissue structures are normal. Normal visualized pulmonary apex. RAD/Shoulder min 2 Views IMPRESSION: Osteopenia with osteoarthrosis of the glenohumeral and acromioclavicular joints. Cystic changes and sclerosis in the humeral head. No acute abnormality or erosive changes. Electronically Signed: Saul Pritchard MD at 15:52 EDT ,
[2023-04-23 15:39] LABS: Vitamin B12 1889 pg/mL (211-911)
[2023-04-23 15:50] LABS: Anion Gap 3 (5-15); BUN 18 mg/dL (7-18); BUN/Creat Ratio 15.9 RATIO (10-20); Calcium,Total 9.5 mg/dL (8.5-10.1); Chloride 108 mmol/L (98-107); Creatinine, Serum 1.13 mg/dL (0.70-1.30); EST Glomerular Filtration Rate 68 mL/min (>60); Est Glom Filt Rate - Afr Amer 82 mL/min (>60); Glucose 110 mg/dL (74-106); Potassium 4.4 mmol/L (3.5-5.1); Sodium Level 139 mmol/L (136-145); T4 Free Direct 0.74 ng/dL (0.76-1.46); Thyroid Stim Hormone (TSH) 2.57 uIU/mL (0.358-3.74)
== END | disposition home or self-care (01) ==
PROVIDERS: PCP Internal Medicine; Referring Provider Internal Medicine; Visit Provider Internal Medicine
DX: M25.511 Pain in right shoulder (principal); E11.69 Type 2 diabetes mellitus with other specified complication; M25.512 Pain in left shoulder
CPT/HCPCS: 36415; 73030; 80048; 82607; 84439; 84443

== ENCOUNTER 2023-05-21 11:30 | Outpatient (RCR) | payer MEDICARE, SELFPAY ==
--- NOTE | 2023-04-27 12:07 | HP.PTEVAL ---
Patient's Visit Information Visit Information Visit Information: JACKELYN LOPEZ Sr. is a 72 year old M referred to Physical Therapy by Dr. Umair Scales MD with a diagnosis of CHRISTOPH SHOULDER PAIN. Date of Evaluation: 04/27/23 Physical Therapist: Magui Martinez PT, Cert MDT Visit Plan Frequency: 2-3x /Week Duration: 4-6 Weeks Plan: FOCUS ON CHRISTOPH SCAPULAR STABILIZATION ALONG WITH ROTATOR CUFF STRENGTHENING WITHOUT INCREASING PAIN OR TINGLING. INCLUDE POSTURE CORRECTION AND STRENGTHENING. HEP INSTRUCTION. Subjective Subjective: Diagnosis: CHRISTOPH SHOULDER PAIN Work/Leisure: RETIRED [employer] WORK[employer] Disability: NO Present symptoms: CHRISTOPH SHLD, ARM, FORARM AND HAND PAIN R > LEFT. TINGLING IN FINGERS. PATIENT DENIES NECK PAIN. Present since: COUPLE MONTHS AGO SX'S ARE WORSENING. Pain Scale: Worst - 7/10 Least - 2/10 Currently: 7/10 Commenced as a result of: NO APPARENT REASON. Symptoms at onset: ACHING IN R SHLD Worse: LYING ON R SIDE, SITTING, REACING BEHIND BACK Better: SOMETIMES RAISING ARMS HELP AND SOMETIMES STRETCHING THEM DOWN HELPS. ADVIL MIGHT HELP A LITTLE BIT. Disturbed sleep: YES Previous history/Previous treatment: H/O R INJURY 30 YEARS AGO - NO SURGERY. DENIES H/O OF NECK PROBLEMS This episode: NO TREATMENT. NECK X-RAYS - SEE BELOW. NCT PENDING Jun AT [facility]. Dizziness: NO Tinnitis: NO Nausea: NO Shortness of Breath: NO Difficulty Swollowing: NO Gait: NO NEW CHANGES. LIMITED BY BACK PROBLEMS. Accidents: NO Unexplained weight loss: NO Imagin04/23/23: CHRISTOPH SHLD MILD ARTHROSIS PMH FROM [facility] EMR: Abdominal pain BPH (benign prostatic hyperplasia) Bilateral foot pain Bilateral shoulder pain CPAP (continuous positive airway pressure) dependence Chronic headaches Diarrhea Diverticular disease of colon Elevated blood pressure reading Erectile dysfunction Hearing loss History of malignant neoplasm of penis Hyperlipidemia Kidney stone Lumbar radiculopathy Neuropathy Numbness and tingling in both hands POLLO (obstructive sleep apnea) Penis cancer Right inguinal hernia Sleep apnea Toenail fungus Trigger finger of right hand Type 2 diabetes mellitus Vertigo Wears glasses History of lymph node biopsy History of right inguinal hernia repair History of tonsillectomy Hx of colonoscopy [penisectomy] Objective Objective: Sitting Posture/Standing Posture: POOR. FH. RSH'S. NO TORTICOLLIS. Active Correction of posture: NE Other Observations: INDEP GAIT AND TRANSFERS. Sensory deficit: CHRISTOPH UE LIGHT TOUCH SENSATION GROSSLY INTACT AND SYMMETRICAL ROM deficit: CHRISTOPH UE AROM WFL WITH END RANGE PAIN ALL PLANES AND ABOUT 20% LIMITED ALL PLANES CHRISTOPH Motor deficit: R SHLD 4-/5, ELBOW 5/5. L SHLD 4/5, ELBOW 5/5. 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 Reflexes: UNABLE TO ELICIT CHRISTOPH UE DTR'S. Dural Signs: POSITIVE CHRISTOPH UE'S. Cervical Mvmt Loss: Flex: NIL Pro: NIL Ext: MOD Ret: MISHA RSB: MIN LSB: MIN R Rot: MOD L Rot: MOD PATIENT DENIES NECK AND ARM SX'S WITH CERVICAL ROM TESTING ALL PLANES. Postural strength: POOR Palpation: NO ACUTE TENDERNESS WITH PALPATION OF UPPER THORACIC, CERVICAL OR CHRISTOPH SHLD REGIONS. OTHER: CERVICAL TRACTION AND DISTRACTION TESTING HAS NE ON PATIENTS SX'S. Balance/Special Test Scores Quick DASH Score: 50.0000 Goals Goal 1:: DECREASE C/O CHRISTOPH UE PAIN AND TINGLING. Goal Time Frame: 4-6 Weeks Goal 2:: IMPROVE ADL, HOMEMAKING, CARRYING, PERSONAL CARE, RECREATIONAL AND SLEEP FUNCTION. Goal Time Frame: 4-6 Weeks Goal 3:: INSTRUCT IN PROPHYLAXIS Goal Time Frame: 4-6 Weeks Anticipated Interventions Patient/Client Instruction: Educate patient on: Condition, Plan of Care and Risk Factors For the Purpose of:: To improve self management Therapeutic Exercise to Include: Strength training, Body mechanics, Postural training, Flexibilty training, Neuromotor development and Scapular Strength/Stabilization For the Purpose of:: To decrease pain, To increase ROM, To improve muscle performance and motor function, To increase tolerance to activity/condition/position and To improve ability of physical actions for home/community/work/leisure Cryotherapy (ice pack, ice massage): Yes Thermo therapy (hot pack): Yes For the Purpose of:: To decrease pain and To decrease swelling/inflammation Text: Thank you for the opportunity to evaluate your patient. For Medicare and Medicare HMO plans, please review the plan of care and approve it. It will need to be FAXED BACK to us at [phone] for Medicare purposes. For Medicare only, by signing this I certify the plan of care. Please let me know if there are questions or concerns regarding this plan of care. Physician Signature: Date:
--- NOTE | 2023-05-21 12:21 | HP.PTDCSUM ---
Discharge Summary D/C summary: It has been my pleasure to treat JACKELYN LOPEZ Sr. referred by Dr. Umair Scales MD, with the diagnosis of CHRISTOPH SHOULDER PAIN for a total of 10 visit(s). Discharge Date: 05/21/23 Please see the following information for a summary of their discharge status. Subjective Subjective: PATIENT REPORTS HIS LEFT SHOULDER DOESN'T BOTHER HIM MUCH AT ALL BUT HIS R ONE IS GIVING HIM FITS. PATIENT REPORTS HE WAS ABLE TO DO MOST OF THE EX'S BUT NOT ALL OF THEM. HE REPORTS THE EX'S HAVE NOT HELPED HIM BE ABLE TO DO HIS NOMAL DAILY ACTIVITIES ANY BETTER AND AT NIGHT IS WHEN HIS SHOULDER BOTHERS HIM THE MOST. PATIENT REPORTS HIS L SHLD MIGHT BE BETTER SINCE STARTING PT BUT HIS R IS NOT. Pain right shoulder: Pain Intensity (Out of 10): 5 Left shoulder: Pain Intensity (Out of 10): 1 Overall Improvement % Improvement: 10 Objective Objective/Function: PATIENT WAS SEEN TODAY FOR RE-ASSESSMENT OF PROGRESS TOWARD THE SET PT GOALS AND THE NEED FOR FURTHER PHYSICAL THERAPY VS READINESS FOR DISCHARGE. ALTHOUGH PATIENTS HAS GOOD RELATIVELY PAINFREE L UE FUNCTIONAL ROM AND STRENGTH HE IS STILL HAVING A LOT OF PAIN AND DYSFUNCTION IN HIS R UE. PHYSICIAN RE-ASSESSMENT RECOMMENDED. UPON EXAM TODAY: ROM deficit: R SHLD FLEX 139 DEG, ABD 145 DEG, EXT 40 DEG, ER 65, DEG, IR 60 DEG. L SHLD FLEX 143 DEG, ABD 150 DEG, EXT 45, ER 85 DEG, IR 75 DEG. PATIENT C/O ERP WITH R SHLD TESTING INTO FLEXION AND ABD AND CATCHING PAIN WITH TESTING INTO ER AND IR. C/O R HAND TINGLING POST ROM TESTING. PATIENT DENIES PAIN WITH L SHLD TESTING TODAY EXCEPT ERP INTO FLEX AND ABD. L SHLD NW A RESULT BUT INCREASED R SHLD PAIN AFTER TESTING. Motor deficit: R SHLD 4-/5, ELBOW 5/5. L SHLD 4/5, ELBOW 5/5. 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 Dural Signs: POSITIVE R UE. CHRISTOPH UE LIGHT TOUCH SENSATION TESTING IS GROSSLY INTACT AND SYMMETRICAL BUT PATIENT DOES REPORT FEELING TINGLING IN R FOREARM AND HAND WITH TESTING. Cervical Mvmt Loss: Flex: NIL Pro: NIL Ext: MOD Ret: MISHA RSB: MIN LSB: MIN R Rot: MIN L Rot: MIN PATIENT DENIES NECK AND ARM SX'S WITH CERVICAL ROM TESTING ALL PLANES. Goals Goal 1:: DECREASE C/O CHRISTOPH UE PAIN AND TINGLING. Goal Progress: Not Progressing with R UE Goal 2:: IMPROVE ADL, HOMEMAKING, CARRYING, PERSONAL CARE, RECREATIONAL AND SLEEP FUNCTION. Goal Progress: Not Progressing Goal 3:: INSTRUCT IN PROPHYLAXIS Goal Progress: Not Progressing Plan Plan: D/C DUE TO LACK OF PROGRESS WITH R SHLD. PATIENT AGREEABLE. PHYSICIAN RE-ASSESSMENT RECOMMENDED. D/C Information d/c sentence: If there are questions or concerns regarding this patient's physical therapy, please feel free to call me at [phone]. Thank you for the referral of this patient. Sincerely, Magui Martinez, PT, Cert MDT Balance/Gait/Functional tests Balance/Special Test Scores Quick DASH Score: 54.5450 Improvement % Improvement: 10
== END 2023-05-21 12:52 | disposition home or self-care (01) ==
LOC: PT 11:30
PROVIDERS: PCP Internal Medicine; Referring Provider Internal Medicine; Visit Provider Internal Medicine
DX: M25.511 Pain in right shoulder (principal); M25.512 Pain in left shoulder; G89.29 Other chronic pain
CPT/HCPCS: 97110; 97162; 97164

== ENCOUNTER → 2023-06-16 | Outpatient (CLI) | payer MEDICARE, SELFPAY ==
--- NOTE | 2023-06-16 15:22 | NEURO ---
NCS and/or EMG Patient Report Ordering Doctor: Umair Scales DATE OF SERVICE: 06/16/23 Luis Angel presents for electrodiagnostic testing of the upper limbs. He reports numbness and tingling in both hands, fairly equal on both sides. Electrodiagnostic findings: Right median motor nerve demonstrates prolonged distal latency with normal amplitude and reduced conduction velocity. Left median motor nerve demonstrates normal distal latency with normal amplitude and normal conduction velocity. Ulnar motor response is within normal limits bilaterally. Prolonged median sensory latency at the wrist bilaterally. Prolonged right median F wave. Needle EMG testing was performed the upper limbs. All muscles tested in the upper limbs showed no evidence of denervation with normal motor unit action potentials. Electrodiagnostic impression: This is an abnormal study in the upper limbs 1. Electrodiagnostic findings suggestive of bilateral median mononeuropathy. This is consistent with a mild to moderate bilateral carpal tunnel syndrome. 2. No electrodiagnostic evidence is noted for cubital tunnel syndrome. 3. No electrodiagnostic evidence noted for cervical radiculopathy Multi Select Codes Neurology Neurology Interp Codes: 10026-47 Musc test done w/n test comp (interp) (2) and 26122-75 Nrv cndj test 9-10 studies (interp)
== END | disposition home or self-care (01) ==
LOC: PSN 12:34
PROVIDERS: PCP Internal Medicine; Referring Provider Internal Medicine; Visit Provider Internal Medicine
DX: M54.16 Radiculopathy, lumbar region (principal)
CPT/HCPCS: 95886; 95911

== ENCOUNTER 2023-07-15 15:31 | Emergency (ER) | payer MEDICARE, SELFPAY ==
[2023-07-15 15:33] VITALS: BP 126/107; PULSE 82; RESP 16; TEMP 36.7; O2SAT 100; BMI 30.2
[2023-07-15 18:41] LABS: Absolute Lymphocyte Count 2.32 X10^3/uL (0.83-4.51); Basophil# 0.06 X10^3/uL; Basophil% 0.5 % (0-1); Eosinophil# 0.14 X10^3/uL; Eosinophils% 1.2 % (0-5); Hematocrit 42.1 % (40-54); Hemoglobin 13.7 g/dL (13.0-16.5); Lymphocyte # 2.32 X10^3/ul (0.83-4.51); Lymphocyte % 20.5 % (19-41); Mean Corp Hgb Conc 32.5 g/dL (32-36); Mean Corpuscular Hgb 29.5 pg (27.0-32.0); Mean Corpuscular Volume 90.7 fL (80-94); Mean Platelet Vol. 9.9 fl (6.2-12.0); Monocyte# 0.78 X10^3/uL; Monocyte% 6.9 % (0-10); NRBC Flagged by Analyzer 0 % (0-5); Neutrophil # 7.97 X10^3/uL (2.7-7.7); Neutrophil % 70.5 % (47-70); Platelet Count 277 K/mm3 (150-450); RBC Distribution Width CV 13.7 % (11.6-14.6); RBC Distribution Width SD 44.8 fl (35.1-43.9); Red Blood Count 4.64 M/mm3 (4.6-6.2); White Blood Count 11.3 K/mm3 (4.4-11.0)
[2023-07-15 18:54] LABS: Anion Gap 5 (5-15); BUN 18 mg/dL (7-18); BUN/Creat Ratio 17.8 RATIO (10-20); Calcium,Total 9.4 mg/dL (8.5-10.1); Chloride 109 mmol/L (98-107); Creatinine, Serum 1.01 mg/dL (0.70-1.30); EST Glomerular Filtration Rate 77 mL/min (>60); Est Glom Filt Rate - Afr Amer 93 mL/min (>60); Glucose 105 mg/dL (74-106); Potassium 4.2 mmol/L (3.5-5.1); Sodium Level 141 mmol/L (136-145)
--- NOTE | 2023-07-15 19:04 | CT_ITS ---
EXAM: CT abdomen and pelvis with contrast. HISTORY: diverticulitis TECHNIQUE: CT Abdomen And Pelvis W/ Contrast Injection. A radiation dose optimization technique was used for this scan. COMPARISON: CT abdomen pelvis October 13, 2022. LIMITATIONS: Motion artifact. LOWER CHEST: Mild atelectasis in the left lung base. Few 2 to 3 mm pulmonary nodules in the lung bases, stable since the prior exam. LIVER: Several subcentimeter probable cysts. GALLBLADDER: Normal. BILE DUCTS: Normal. PANCREAS: Normal. SPLEEN: Normal. ADRENAL GLANDS: Normal. KIDNEYS/URETERS/BLADDER: 7.5 cm cyst in the right kidney. No hydronephrosis. AORTA: Normal caliber. BOWEL/MESENTERY: Multiple diverticula are without evidence of diverticulitis. No small bowel obstruction. APPENDIX: Normal. PERITONEUM: Normal. REPRODUCTIVE ORGANS: The prostate gland is mildly enlarged. BONES/SOFT TISSUES: No acute fracture. Surgical clips in the groin bilaterally. OTHER: None. CONCLUSION: Diverticulosis without evidence of diverticulitis. Electronically Signed: Christiano Lofton MD at 19:56 EST , CT/Abdomen/Pelvis W IV Cont ONLY IMPRESSION: undefined
--- NOTE | 2023-07-15 19:04 | EDS_ITS ---
HPI History of Present Illness Chief Complaint: Flank Pain Informant: patient Narrative Narrative: 72-year-old male presenting to the emergency room with abdominal pain. Patient states that symptoms began Wednesday morning. She describes it as several fingerbreadths below his lower right mid axillary line ribs. It is worse with movement. She denies change in bowel habits or urinary symptoms. No vomiting or fevers. At rest he states he feels fine but it is only when he moves particularly with turning. He has not noticed any bulging no rashes. He states he has a history of diverticulitis and wonders if that could be this. No significant abdominal surgeries. [facility] Medical History Abdominal pain Bilateral carpal tunnel syndrome Bilateral foot pain Bilateral shoulder pain BPH (benign prostatic hyperplasia) Chronic headaches CPAP (continuous positive airway pressure) dependence Diarrhea Diverticular disease of colon Elevated blood pressure reading Erectile dysfunction Hearing loss History of malignant neoplasm of penis Hyperlipidemia Kidney stone Lumbar radiculopathy Neuropathy Numbness and tingling in both hands POLLO (obstructive sleep apnea) Penis cancer Right inguinal hernia Sleep apnea Toenail fungus Trigger finger of right hand Type 2 diabetes mellitus Vertigo Wears glasses Home Medications cholecalciferol (vitamin D3) 50 mcg (2,000 unit) tablet 5,000 unit PO DAILY 10/26/13 [History Last Taken 05/27/22] multivitamin 1 ea PO DAILY 06/06/16 [History Last Taken 05/27/22] blood-glucose meter (FreeStyle Lite Meter kit) #1 ea 01/31/20 [Rx Last Taken U nknown] ferrous sulfate 325 mg (65 mg iron) tablet (FerrouSul) 325 mg PO QODAY 09/30/20 [History Last Taken 05/27/22] coffee extract 50 mg-phosphatidyl serine 50 mg chewable tablet (Neuriva Original) 1 tab PO DAILY 01/28/21 [History Last Taken 05/27/22] tamsulosin 0.4 mg capsule 0.4 mg PO DAILY 06/11/21 [History Last Taken 05/27/22] rosuvastatin 5 mg tablet 5 mg PO DAILY #90 tabs 02/23/23 [Rx Last Taken Unknown] blood sugar diagnostic (Accu-Chek Guide test strips) #100 ea 04/26/23 [Rx Last Taken Unknown] metformin 850 mg tablet 850 mg PO BID #180 tabs 05/19/23 [Rx Last Taken Unknown] etodolac 500 mg tablet 500 mg PO BID #40 tabs 05/31/23 [Rx Last Taken Unknown] lancets (Accu-Chek Softclix Lancets) #200 ea 07/01/23 [Rx Last Taken Unknown] etodolac 500 mg tablet 500 mg PO BID #40 tabs 07/14/23 [Rx Last Taken Unknown] mecobalamin (vitamin B12) 1 tab PO TUTHSA 07/15/23 [History Last Taken Unknown] Allergy/AdvReac Type Severity Reaction Status Date / Time ondansetron [From Zofran] AdvReac Severe dizziness, Verified 07/15/23 15:33 headache Family History Brother Hypertension Cancer Sister Cancer Mother Cancer Surgical History History of lymph node biopsy History of right inguinal hernia repair History of tonsillectomy Hx of colonoscopy penisectomy Social History Smoking Status: Former smoker how long ago did patient quit smokin, 1pk/day second hand exposure: Yes alcohol intake: never substance use type: does not use caffeine: Yes Type: coffee frequency: 3-4 times per week ROS ROS ED Constitutional Constitutional ED: Denies chills, fever(s) or weight loss Eyes Eyes: Denies change in vision or diplopia ENT ENT ED: Denies ear pain, rhinorrhea or sore throat Cardiovascular Cardiovascular: Denies chest pain, orthopnea, palpitations or racing heartbeat Respiratory/Chest Respiratory/Chest: Denies cough, dyspnea or orthopnea Gastrointestinal Gastrointestinal: Reports abdominal pain; Denies constipation, diarrhea, melena, nausea or vomiting Genitourinary Genitourinary ED: Denies dysuria, hematuria or urinary frequency Musculoskeletal Musculoskeletal: Denies arthralgias or myalgias Integumentary Denies abscess or rash Neurologic Neurologic: Denies headache(s) or weakness Psychiatric Psychiatric: Denies anxiety, depression, suicidal ideation or suicidal thoughts Endocrine Endocrinology: Denies polydipsia, polyphagia or polyuria Allergic/Immunologic Allergic/Immunologic ED: Denies mouth swelling, tongue swelling or urticaria EXAM Physical Exam Const Vital Signs: 07/15/23 15:33 07/15/23 21:15 Temperature 98.1 F Temperature Source Temporal Pulse Rate 82 78 Respiratory Rate 16 18 Blood Pressure 126/107 H 119/68 Blood Pressure Mean 113 85 Pulse Ox 100 97 Oxygen Delivery Method Room Air Positive well nourished and well developed General Appearance ED: well developed HEENT Reports normocephalic, head/scalp atraumatic and moist mucous membranes Eyes PERRL and EOMs intact bilaterally Neck no lymphadenopathy, supple and no JVD Resp normal respiratory effort and clear to auscultation bilaterally Cardio regular rate, regular rhythm and no murmurs GI normal to inspection, nondistended, normoactive bowel sounds and non-tender GI Narrative: The abdomen itself is nontender to deep palpation. However when I get the patient to sit up or to twist he has pain. Inspection: Negative for abdominal distention Auscultation: normoactive bowel sounds Palpation: soft; Negative for tender, guarding or rebound tenderness present Back/Spine no CVA tenderness and normal ROM Extremity normal to inspection General Extremety ED: Negative for edema General Extremity: Negative for edema Neuro oriented x3 and CN's II-XII intact bilaterally Sensorium / Orientation: alert Motor Exam: strength 5/5 throughout Psych mental status grossly normal Mood & Affect: Negative for depressed or tearful Skin no rashes or lesions noted and no wounds Image ED - Body Diagram Man: 1. MDM MDM MDM Narrative Medical decision making narrative: White count returns at 11.3. Creatinine 1.01. Glucose 105. Urinalysis 0-5 white cells negative nitrates negative bilirubin negative leukocyte esterase no bacteria. CT abdomen pelvis demonstrates diverticulosis but no diverticulitis. No obvious kidney stone seen. No obstruction. There is a cyst in the right kidney which is known. In reviewing the findings with the patient I brought up whether or not this could be abdominal wall/muscle injury. He notes that same day that he noticed this pain was the day that he woke up after they had changed the elevation of the head of the bed and they are sleeping on due to his 's her recent brain surgery. At this point I would treat conservatively heat rest monitoring for new symptoms. Return if worsening or concerns Lab Data Attestation: I reviewed the patient's lab results. Labs: Laboratory Results - last 24 hr 07/15/23 07/15/23 18:34 20:00 WBC 11.3 H RBC 4.64 Hgb 13.7 Hct 42.1 MCV 90.7 MCH 29.5 MCHC 32.5 RDW Std Deviation 44.8 H RDW Coeff of Andrea 13.7 Plt Count 277 MPV 9.9 Immature Gran % (Auto) 0.400 Neut % (Auto) 70.5 H Lymph % (Auto) 20.5 [place] % (Auto) 6.9 Eos % (Auto) 1.2 Baso % (Auto) 0.5 Absolute Neuts (auto) 8.0 H Absolute Lymphs (auto) 2.32 Nucleated RBC % 0 Sodium 141 Potassium 4.2 Chloride 109 H Carbon Dioxide 27.0 Anion Gap 5 BUN 18 Creatinine 1.01 Estim Creat Clear Calc 64.90 Est GFR (MDRD) Af Amer 93 Est GFR (MDRD) Non-Af 77 BUN/Creatinine Ratio 17.8 Glucose 105 Calcium 9.4 Urine Color Yellow Urine Clarity Clear Urine pH 5.0 Ur Specific [place] 1.010 Urine Protein Negative Urine Glucose (UA) Normal Urine Ketones Negative Urine Occult Blood 10 H Urine Nitrite Negative Urine Bilirubin Negative Urine Urobilinogen Normal Ur Leukocyte Esterase 100 H Urine RBC 0 SEEN Urine WBC 0-5 SEEN Ur Squamous Epith Cells 0 SEEN Urine Bacteria 0 SEEN Urine Mucus 0 SEEN Radiography Diagnostic Testing: Clinical Impression(s) from Imaging Studies Abdomen/Pelvis CT 07/15/23 19:04 IMPRESSION: undefined Discharge Plan Triage Chief Complaint: Flank Pain ED Provider: Cooper Govea Dx/Rx/DC Orders Clinical Impression: Diverticulosis, Abdominal wall pain Instructions: ED Pain, Acute, Uncertain Cause Prescriptions: No Action (DME) blood-glucose meter [FreeStyle Lite Meter] Kit See Rx Instructions .ROUTE .MEDSUPPLY Qty: 1 0RF Rx Instructions: As directed, check blood glucose daily for type 2 DM ferrous sulfate [FerrouSul] 325 mg (65 mg iron) tablet 325 mg PO QODAY tamsulosin 0.4 mg capsule 0.4 mg PO DAILY etodolac 500 mg tablet 500 mg PO BID Qty: 40 0RF etodolac 500 mg tablet 500 mg PO BID Qty: 40 0RF cholecalciferol (vitamin D3) 2,000 UNIT tablet 5,000 unit PO DAILY multivitamin 1 EACH tablet 1 ea PO DAILY Neuriva Original 50-50 mg Tablet,Chewable 1 tab PO DAILY mecobalamin (vitamin B12) [B12 Active] 1 tab PO TUTHSA rosuvastatin 5 mg tablet 5 mg PO DAILY Qty: 90 3RF Rx Instructions: TAKE 1 TABLET BY MOUTH EVERY DAY (DME) Accu-Chek Guide test strips Strip See Rx Instructions .Route Qty: 100 2RF Rx Instructions: daily metformin 850 mg tablet 850 mg PO BID Qty: 180 3RF (DME) lancets [Accu-Chek Softclix Lancets] Misc See Rx Instructions .Route Qty: 200 2RF Rx Instructions: daily Primary Care Provider: Umair Scales Referrals: Umair Scales MD [Primary Care Provider] - 1-2 Days if not improving Disposition Disposition: Home, Self Care Discharge Date/Time: 07/15/23 21:45
[2023-07-15 20:12] LABS: Bacteria 0 SEEN /hpf (None Seen); Color, Urine Yellow (Yellow); Glucose, Dipstick Normal (Normal); Ketone-Dipstick Negative (Negative); Leukocyte Esterase-Dipstick 100 /ul (Negative); Mucous, Urine 0 SEEN /hpf (<or=2+); Nitrite-Dipstick Negative (Negative); Occult Blood-Urine 10 /ul (Negative); Protein-Dipstick Negative (Negative); Red Blood Cells-Urine 0 SEEN /hpf (0-5); Squamous Epithelial Cells - UA 0 SEEN /hpf (0-5); Urine Bilirubin Dipstick Negative (Negative); Urine Clarity Clear (Clear); Urine Urobilinogen Normal (Normal)
[2023-07-15 20:22] LABS: White Blood Cells 0-5 SEEN /hpf (0-5)
[2023-07-15 21:15] VITALS: BP 119/68; PULSE 78; RESP 18; O2SAT 97
== END 2023-07-15 21:45 | disposition home or self-care (01) ==
PROVIDERS: Emergency Provider Emergency Medicine; PCP Internal Medicine; Visit Provider Emergency Medicine
DX: K57.90 Diverticulosis of intestine, part unspecified, without perforation or abscess without bleeding (principal); E11.40 Type 2 diabetes mellitus with diabetic neuropathy, unspecified; R10.9 Unspecified abdominal pain; E78.5 Hyperlipidemia, unspecified; G47.33 Obstructive sleep apnea (adult) (pediatric); N40.0 Benign prostatic hyperplasia without lower urinary tract symptoms; G89.29 Other chronic pain; R51.9 Headache, unspecified; Z79.84 Long term (current) use of oral hypoglycemic drugs; Z79.899 Other long term (current) drug therapy; Z87.891 Personal history of nicotine dependence
CPT/HCPCS: 74177; 80048; 81001; 85025; 99283; Q9967; A4216

== ENCOUNTER → 2023-07-29 | Outpatient (CLI) | payer MEDICARE, SELFPAY ==
[2023-07-29 15:58] LABS: PSA,Total- Diagnostic 7.97 ng/mL (0.0-4.0)
== END | disposition home or self-care (01) ==
LOC: LAB 14:49
PROVIDERS: PCP Internal Medicine; Visit Provider Urology
DX: R97.20 Elevated prostate specific antigen [PSA] (principal)
CPT/HCPCS: 36415; 84153

== ENCOUNTER → 2023-08-19 | Outpatient (CLI) | payer MEDICARE, SELFPAY ==
--- NOTE | 2023-08-19 11:02 | MRI_ITS ---
EXAMINATION: MR Pelvis WO/W Contrast COMPARISON: None CLINICAL HISTORY: 72 yo M with elevated PSA Most recent PSA = 8 ng/ml TECHNIQUE: Standard prostate MR protocol was used before and after administration of 18 cc of IV Clariscan. FINDINGS: Prostate volume: 51 cc PSA density: 0.16 ng/ml2 Length of membranous urethra: 15 mm Post-biopsy hemorrhage: None Multiparametric MR evaluation: Heterogeneous appearance of the central gland is consistent with benign prostatic hyperplasia. No suspicious T2 hypointense or diffusion restricting lesion. Capsular margin and neurovascular bundle: Not involved Seminal vesicles: Not involved. Lymph nodes: No lymphadenopathy in the field of view. Bones: No suspicious lesions in the field of view. Bladder: Small bladder diverticulum. MRI/Pelvis W/WO Contrast IMPRESSION: PI-RADS 2: Benign prostatic hyperplasia. - No lymphadenopathy. - No suspicious bone lesions. Electronically Signed: Jesus Aviles MD at 23:55 EST ,
[2023-08-19 11:44] LABS: CREATININE FINGERSTICK < 1.0 mg/dL (0.70-1.30); EGFR FINGERSTICK > 60.0000 mL/min (>60)
== END | disposition home or self-care (01) ==
LOC: MRI 10:59
PROVIDERS: PCP Internal Medicine; Referring Provider Urology; Visit Provider Urology
DX: R97.20 Elevated prostate specific antigen [PSA] (principal); Z12.5 Encounter for screening for malignant neoplasm of prostate
CPT/HCPCS: 72197; A9575

== ENCOUNTER → 2023-12-27 | Outpatient (CLI) | payer MEDICARE, SELFPAY ==
[2023-12-27 17:52] LABS: Microalbumin,Random Urine 6.1 mg/L (NO RANGE EST.); Microalbumin:Creatinine Ratio 6.2 mg/g CRE (<30 mg/g CRE)
[2023-12-27 18:12] LABS: ALB/GLOB Ratio 0.9 RATIO (0.9-2.4); AST(SGOT) 27 U/L (15-37); Alanine Aminotransfer ALT/SGPT 37 U/L (16-61); Albumin, Serum 3.4 g/dL (3.2-5.0); Alkaline Phosphatase 75 U/L (45-117); Anion Gap 7 (5-15); BUN 15 mg/dL (7-18); BUN/Creat Ratio 13.5 RATIO (10-20); Calcium,Total 8.9 mg/dL (8.5-10.1); Chloride 108 mmol/L (98-107); Cholesterol 133 mg/dL (200); Creatinine, Serum 1.11 mg/dL (0.70-1.30); EST Glomerular Filtration Rate 69 mL/min (>60); Est Glom Filt Rate - Afr Amer 84 mL/min (>60); Globulin 3.8 g/dL (2.2-4.2); Glucose 124 mg/dL (74-106); High Density Lipoprotein 51 mg/dL; Potassium 3.8 mmol/L (3.5-5.1); Protein, Total 7.2 g/dL (6.4-8.2); Sodium Level 141 mmol/L (136-145); Triglycerides 347 mg/dL; Very Low Density Lipoprotein 69 mg/dL (5-40)
== END | disposition home or self-care (01) ==
PROVIDERS: PCP Internal Medicine; Referring Provider Internal Medicine; Visit Provider Internal Medicine
DX: E11.9 Type 2 diabetes mellitus without complications (principal); Z68.31 Body mass index [BMI] 31.0-31.9, adult; E66.09 Other obesity due to excess calories
CPT/HCPCS: 36415; 80053; 80061; 82043; 82570

== ENCOUNTER → 2024-02-25 | Outpatient (CLI) | payer MEDICARE, SELFPAY ==
[2024-02-25 17:32] LABS: PSA,Total- Diagnostic 5.78 ng/mL (0.0-4.0)
[2024-02-25 17:50] LABS: Hemoglobin A1c 6.3 % (3.8-5.6)
== END | disposition home or self-care (01) ==
LOC: LAB 16:39
PROVIDERS: PCP Internal Medicine; Referring Provider Urology; Visit Provider Urology
DX: N40.1 Benign prostatic hyperplasia with lower urinary tract symptoms (principal); E11.69 Type 2 diabetes mellitus with other specified complication
CPT/HCPCS: 83036; 84153

== ENCOUNTER → 2024-02-29 | Outpatient (CLI) | payer MEDICARE, SELFPAY | END | disposition home or self-care (01) | PROVIDERS: PCP Internal Medicine; Visit Provider Urology | DX: N39.0 Urinary tract infection, site not specified (principal) | CPT/HCPCS: 87086; 87088 ==

== ENCOUNTER → 2024-06-22 | Outpatient (CLI) | payer MEDICARE, SELFPAY ==
--- OUTSIDE RECORDS SUMMARY | 2024-06-22 10:40 | XMS RPT_ITS | CCD ---
Author Organization [facility] Care Team Providers Care Lead Advisor Name Role Phone ONOFRE ENAMORADO Unavailable Unavailable ONOFRE ENAMORADO Unavailable Unavailable Vince Hernandez Unavailable Umair Scales MD Primary Care Provider Vince Hernandez MD Unavailable [phone] Umair Scales MD Primary Care Provider [phone] SERA DAI MD Attending Unavailable ONOFRE ENAMORADO MD Primary Care Unavailable Vince Hernandez MD Unavailable Umair Scales MD Primary Care Provider [phone] UMAIR SCALES Primary Care Unavailable UMAIR SCALES Primary Care Unavailable MARGUERITE SULLIVAN Referring Unavailable Allergies Allergy Classification Reported Allergen(s) Allergy Type Date of Onset Reaction(s) Facility (6 sources) Ondansetron; Translations: [ONDANSETRON] Drug Allergy 05-16-2021 Intolerance [facility] Work Phone: Medications Current Medications Medication Drug Class(es) Dates Sig (Normalized) Sig (Original) acetaminophen 325 mg oral tablet (8 sources) Start: 07-06-2020 take 2 tablets by mouth every six hours acetaminophen (TYLENOL) 325 mg tablet Take 2 tablets by mouth every 6 hours. 07/06/2020 Active Comment on above: Take 2 tablets by mo ut every 6 hours. cholecalciferol 0.125 mg oral tablet (8 sources) Vitamin D Start: 10-26-2013 cholecalciferol (VITAMIN D3) 5,000 unit tab at bedtime as needed. 10/26/2013 Active Comment on above: at bedtime as needed . Comp.Stocking,Thigh,L dale,Large misc (8 sources) Start: 08-04-2019 Comp.Stocking,Thigh, Long,Large misc 1 Each DAILY (6 AM). Bilateral thigh high claude hose. 2 Each 08/04/2019 Active Start: 08-04-2019 Comp.Stocking, Thigh,Long,Large misc 1 Each DAILY (6 AM). Bilateral thigh high claude hose. 2 Each 0 08/04/2019 Active Comment on above: 1 Each DAILY (6 AM). Bilateral thigh high claude hose. Comp.Stocking,Thigh ,Reg,Medium misc (8 sources) Start: 11-15-2020 Comp.Stocking,Thig h,Reg,Medium misc 1 Each once daily. 3 Each 11 11/15/2020 Active Comment on above: 1 Each once daily. ibuprofen 200 mg oral tablet (8 sources) Nonsteroidal Anti-inflammatory Drug Start: 07-06-2020 take 200-400 mg by mouth every four hours as needed ibuprofen (MOTRIN) 200 mg tablet Take 1-2 tablets by mouth every 4 hours as needed for Pain. 07/06/2020 Active Comment on above: Take 1-2 tablets by mouth every 4 hours as needed for Pain. iron,carb/vit C/vit B12/folic (IRON 100 PLUS ORAL) (8 sources) iron,carb/vit C/vit B12/folic (IRON 100 PLUS ORAL) Take by mouth. Active iron,carb/vit C/ vit B12/folic (IRON 100 PLUS ORAL) Take by mouth. 0 Active Comment on above: Take by mouth. MEDICATION, NON-DATABASE (8 sources) MEDICATION, NON- DATABASE Nureva - brain supplement Active MEDICATION, NON- DATABASE Nureva - brain supplement 0 Active Comment on above: Nureva - brain suppl ement metFORMIN hydrochloride 850 mg oral tablet (5 sources) Biguanide Start: 3 take 1 tablet by mouth twice daily metFORMIN (GLUCOPHAGE) 850 mg tablet Take 850 mg by mouth twice daily. 01/01/2023 Active Comment on above: Take 850 mg by mouth twice daily. multivit-min/FA/lycopen /lutein (CENTRUM SILVER MEN ORAL) (8 sources) multivit-min/FA/ ly copen/lutein (CENTRUM SILVER MEN ORAL) Take by mouth once daily. Active multivit-min/FA/ lycopen/lutein (CENTRUM SILVER MEN ORAL) Take by mouth once daily. 0 Active Comment on above: Take by mouth once d aily. predniSONE 20 mg oral tablet (2 sources) Start: End: take 2 tablets by mouth once daily predniSONE (DELTASONE) 20 mg tablet Take 2 tablets by mouth once daily for 5 days. 10 tablet 0 01/23/2023 01/28/2023 Active Comment on above: Take 2 tablets by mo [facility] once daily for 5 days. rosuvastatin 5 mg oral capsule (8 sources) HMG-CoA Reductase Inhibitor take 5 mg by mouth once daily rosuvastatin calcium (CRESTOR ORAL) Take 5 mg by mouth once daily. Active Comment on above: Take 5 mg by mouth o nce daily. sulfamethoxazole 800 mg / trimethoprim 160 mg oral tablet (8 sources) Dihydrofolate Reductase Inhibitor Antibacterial, Sulfonamide Antimicrobial Start: 021 take 1 tablet by mouth twice daily sulfamethoxazole-tr imethoprim (BACTRIM DS) 800-160 mg per tablet Take 1 tablet by mouth twice daily. 14 tablet 12/05/2020 Active Comment on above: Take 1 tablet by [facility] twice daily. tamsulosin hydrochloride 0.4 mg oral capsule (5 sources) alpha-Adrenergic Evan Start: 023 take 0.4 mg by mouth once daily in the morning tamsulosin (FLOMAX) 0.4 mg Take 0.4 mg by mouth every morning. 12/08/2022 Active Comment on above: Take 0.4 mg by mouth every morning. Problems Active Problems Problem Classification Problem Date Documented Da te Episodic/Chronic Cancer of other male genital organs (20 sources) Malignant tumor of penis; Translations: [Malignant neoplasm of penis, unspecified] Onset: 06-08-2019 Chronic Cardiac dysrhythmias (2 sources) Bradycardia, unspecified; Translations: [BRADYCARDIA, UNSPECIFIED] Onset: 03-01-2017 Chronic Diabetes mellitus without complication (8 sources) Type 2 diabetes mellitus without complication; Translations: [Type 2 diabetes mellitus without complications] Onset: 06-28-2020 06-28-2020 Chronic Disorders of lipid metabolism (9 sources) Mixed hyperlipidemia; Translations: [Hyperlipidemia] Onset: 03-01-2017 07-21-2019 Chronic Hyperplasia of prostate (10 sources) Benign prostatic hyperplasia without lower urinary tract symptoms; Translations: [Benign prostatic hyperplasia] Onset: 03-01-2017 07-21-2019 Chronic Other connective tissue disease (2 sources) Pain of toe of left foot; Translations: [Pain in left toe(s)] Episodic Other endocrine disorders (2 sources) Testicular hypofunction; Translations: [TESTICULAR HYPOFUNCTION] Onset: 03-01-2017 Chronic Other non-traumatic joint disorders (2 sources) Pain in right knee; Translations: [Pain in joint, lower leg] 05-09-2024 Episodic Other nutritional; endocrine; and metabolic disorders (1 source) Obesity, unspecified; Translations: [OBESITY, UNSPECIFIED] Onset: 03-01-2017 Chronic Other nutritional; endocrine; and metabolic disorders (8 sources) Obesity; Translations: [Obesity, unspecified] Onset: 03-01-2017 07-21-2019 Chronic Residual codes; unclassified (8 sources) Obstructive sleep apnea syndrome; Translations: [Obstructive sleep apnea (adult) (pediatric)] Onset: 07-21-2019 07-21-2019 Chronic Past or Other Problems Problem Classification Problem Date Documented Da te Episodic/Chronic Diabetes mellitus without complication (8 sources) Prediabetes; Translations: [Prediabetes] Onset: 07-21-2019 07-21-2019 Episodic Screening and history of mental health and substance abuse codes (8 sources) Ex-smoker; Translations: [Personal history of nicotine dependence] Onset: 06-28-2020 06-28-2020 Episodic Unclassified (1 source) Encounter for screening for malignant neoplasm of prostate; Translations: [ENCOUNTER FOR SCREENING FOR MALIGNANT NEOPLASM OF PROSTATE] Onset: 03-01-2017 Episodic Results Test Name Value Interpretation Reference Range Facility [facility] 05-09-2024 CNOV Office Visit ([facility] ) LUIS ANGEL DIXON SR ([id number]) 1950 M Date Time Provider Department 05/09/24 2:45 PM MARGUERITE SULLIVAN [facility] During your visit today, we recorded the following information about you: Temperature Pulse Respiration Blood pressure 98.9 degrees 100/minute 16/minute 118/72 Weight 90.5 kg Marguerite Sullivan PA 05/09/2024 3:09 PM Signed This note was created using [employer]. Subjective Luis Angel Dixon is a 73 year old male. HPI 73-year-old male presents for right knee pain. Patient has been having right knee pain for the past week. Patient states that he stepped down off of a curb and leonor his knee. He had pain immediately afterwards. He points to his lateral knee and behind the knee. Still able to ambulate, but reports pain with ambulation. He took an Aleve 1 time, but did not really seem to help with the pain. He denies any fevers. No calf pain or swelling. No recent travel. No other complaint. PAST MEDICAL HISTORY No date: ED (erectile dysfunction) of organic origin No date: Hearing loss No date: Hypercholesteremia No date: Hypogonadism in male No date: Penile cancer (HCC) PAST SURGICAL HISTORY No date: BIOPSY PENIS SEPARATE PROCEDURE No date: COLONOSCOPY Comment: multiple No date: TONSILLECTOMY AND ADENOIDECTOMY HX ALLERGIES Ondansetron MEDICATIONS tamsulosin (FLOMAX) 0.4 mg Take 0.4 mg by mouth every morning. metFORMIN (GLUCOPHAGE) 850 mg tablet Take 850 mg by mouth twice daily. iron,carb/vit C/vit B12/folic (IRON 100 PLUS ORAL) Take by mouth. Comp.Stocking,Thigh,Re g,Medium misc 1 Each once daily. ibuprofen (MOTRIN) 200 mg tablet Take 1-2 tablets by mouth every 4 hours as needed for Pain. cholecalciferol (VITAMIN D3) 5,000 unit tab at bedtime as needed. multivit-min/FA/lycope n/lutein (CENTRUM SILVER MEN ORAL) Take by mouth once daily. MEDICATION, NON-DATABASE Nureva - brain supplement Comp.Stocking,Thigh,Lo ng,Large misc 1 Each DAILY (6 AM). Bilateral thigh high claude hose. rosuvastatin calcium (CRESTOR ORAL) Take 5 mg by mouth once daily. sulfamethoxazole-trime thoprim (BACTRIM DS) 800-160 mg per tablet Take 1 tablet by mouth twice daily. (Patient not taking: Reported on 12/11/2021 ) acetaminophen (TYLENOL) 325 mg tablet Take 2 tablets by mouth every 6 hours. (Patient not taking: Reported on 08/07/2021 ) FAMILY HISTORY Problem Relation Age of Onset COPD Mother No Known Problems Father Cancer Sister No Known Problems Brother Prostate Cancer Brother No Known Problems Brother No Known Problems Brother No Known Problems Brother No Known Problems Sister Social History Tobacco Use Smoking status: Former Current packs/day: 0.00 Average packs/day: 1 pack/day for 10.0 years (10.0 ttl pk-yrs) Types: Cigarettes Start date: 1979 Quit date: 1989 Years since quittin.7 Smokeless tobacco: Never Substance Use Topics Alcohol use: Not Currently Drug use: Never Review of Systems Constitutional: Negative for chills and fever. HENT: Negative for congestion and sore throat. Respiratory: Negative for cough and shortness of breath. Gastrointestinal: Negative for diarrhea and vomiting. Musculoskeletal: Positive for arthralgias and joint swelling. Objective BP 118/72 Pulse 100 Temp 37.2 ?C (98.9 ?F) Resp 16 Wt 90.5 kg (199 lb 8.3 oz) SpO2 96% BMI 32.20 kg/m? Physical Exam Vitals and nursing note reviewed. Constitutional: General: He is not in acute distress. Appearance: Normal appearance. He is not toxic-appearing. Cardiovascular: Rate and Rhythm: Normal rate and regular rhythm. Pulmonary: Effort: Pulmonary effort is normal. Breath sounds: Normal breath sounds. Musculoskeletal: Right knee: Swelling and bony tenderness present. Normal range of motion. Tenderness present over the lateral joint line. Comments: Normal ROM right knee. Patient does report pain with movement. Mild crepitation noted in the right knee. Tenderness over the lateral joint line and posterior knee. No calf pain swelling or tenderness. DP and PT pulses 2+. Normal sensation right lower extremity. Able to ambulate. Generalized swelling noted around the knee. Skin: General: Skin is warm and dry. Neurological: Mental Status: He is alert. Assessment and Plan ASSESSMENT/PLAN: 1. Acute pain of right knee - ICD9: 719.46, ICD10: M25.561 - XR KNEE GENERAL 4V AP BOTH/PA BOTH/LAT/MERC RIGHT-no acute osseous abnormality -Recommend rest, ice, elevation, Tylenol/Motrin as needed for pain. -Patient has a brace, may wear brace as needed for comfort. - CONSULT TO ORTHOPAEDICS Diagnosis and treatment plan were discussed and questions were answered to the patient's satisfaction. Pt acknowledged understanding of concepts and follow up plan. Specific signs and symptoms that would indicate the need for higher level of care were discussed (more content not included)... Normal [facility] XR KNEE 4V AP/PA BOTH+LAT/ME R RTon 05-09-2024 XR KNEE 4V AP/PA BOTH+LAT/DWAYNE RT * * *Final Report* * * DATE OF EXAM: May 09 2024 2:48PM WOX [id number] - XR KNEE 4V AP/PA BOTH+LAT/DWAYNE RT / PROCEDURE REASON: Acute pain of right knee * * * * Physician Interpretation * * * * EXAMINATION: XR KNEE 4V AP/PA BOTH+LAT/DWAYNE RT CLINICAL HISTORY: Right knee pain Technique: XR KNEE 4V AP/PA BOTH+LAT/DWAYNE RT -- RIGHT with 4 views on 4 images Comparison: None RESULT: No acute fracture or dislocation. Mild medial and lateral compartment joint space narrowing of the right knee. Mild narrowing of the medial compartment of the left knee and moderate narrowing of the lateral compartment of the left knee with marginal osteophytes. IMPRESSION: No acute osseous abnormality Supply Chain Director: EFRAIN Transcribe Date/Time: May 09 2024 2:50P Dictated by : MADDIE ENCINAS MD This examination was interpreted and the report reviewed and electronically signed by: MADDIE ENCINAS MD on May 09 2024 2:51PM EST [id number] Normal [facility] XR Knee - right 4 Viewson Radiology Study observation (narrative) [facility] IMPRESSION: No acute osseous abnormality Supply Chain Director: PSCB Transcribe Date/Time: May 09 2024 2:50P Dictated by : MADDIE ENCINAS MD This examination was interpreted and the report reviewed and electronically signed by: MADDIE ENCINAS MD on May 09 2024 2:51PM EST DIVISION OF RADIOLOGY * * *Final Report* * * DATE OF EXAM: May 09 2024 2:48PM WOX 5203 - XR KNEE 4V AP/PA BOTH+LAT/DWAYNE RT / PROCEDURE REASON: Acute pain of right knee * * * * Physician Interpretation * * * * EXAMINATION: XR KNEE 4V AP/PA BOTH+LAT/DWAYNE RT CLINICAL HISTORY: Right knee pain Technique: XR KNEE 4V AP/PA BOTH+LAT/DWAYNE RT -- RIGHT with 4 views on 4 images Comparison: None RESULT: No acute fracture or dislocation. Mild medial and lateral compartment joint space narrowing of the right knee. Mild narrowing of the medial compartment of the left knee and moderate narrowing of the lateral compartment of the left knee with marginal osteophytes. DIVISION OF RADIOLOGY Provider, [facility] - 05/09/2024 * * *Final Report* * * DATE OF EXAM: May 09 2024 2:48PM WOX 5203 - XR KNEE 4V AP/PA BOTH+LAT/DWAYNE RT / PROCEDURE REASON: Acute pain of right knee * * * * Physician Interpretation * * * * EXAMINATION: XR KNEE 4V AP/PA BOTH+LAT/DWAYNE RT CLINICAL HISTORY: Right knee pain Technique: XR KNEE 4V AP/PA BOTH+LAT/DWAYNE RT -- RIGHT with 4 views on 4 images Comparison: None RESULT: No acute fracture or dislocation. Mild medial and lateral compartment joint space narrowing of the right knee. Mild narrowing of the medial compartment of the left knee and moderate narrowing of the lateral compartment of the left knee with marginal osteophytes. IMPRESSION IMPRESSION: No acute osseous abnormality Supply Chain Director: EFRAIN Transcribe Date/Time: May 09 2024 2:50P Dictated by : MADDIE ENCINAS MD This examination was interpreted and the report reviewed and electronically signed by: MADDIE ENCINAS MD on May 09 2024 2:51PM [facility] XR Knee - right 4 ViewsOrder ed By: Cc Provider on 05-09-2024 [facility] No Panel Informationon 01-23 [facility] CNOVon 12-11-2021 CNOV Office Visit (UROAME ) LUIS ANGEL DIXON SR ([id number]) 1950 M Date Time Provider Department 12/11/21 12:00 PM MAYRA CHÁVEZ During your visit today, we recorded the following information about you: Weight Height 90.7 kg 1.676 m Mayra Chávez MD 12/11/2021 12:[address] pelvisHPI: Last seen 08/07/21 70 yo s/p penectomy and PU on 07/05/20. Prior glansectomy and then bilateral mIFLNDS in late 2018. 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 5 mo ago Item Processing Clerk Specimen originated from [facility] Specimen #: [id number] Submitting Physician: MAYRA CHÁVEZ MD ? (Q10) FINAL DIAGNOSIS 1. Right corporal body mass, excision (A) - Invasive squamous cell carcinoma, basaloid-type, involving erectile tissue. 2. Penis, excision (B) - Negative for residual neoplasm. JLM/dkm 07/10/2020 COMMENT Margin of excision are free of neoplasm. In the excision of the mass (part A), the squamous cell carcinoma involves erectile tissue. The case is discussed with Dr. Chávez who indicates clinically that the mass represents a metastasis. CT scan 12/02/21 No pelvic mass. ?Innumerable clips in the inguinal femoral regions without lymphadenopathy. ?Mild linear soft tissue thickening at lymphadenectomy sites. ?No external iliac or common iliac lymphadenopathy. Bones/Soft Tissues: Degenerative changes. ?Punctate sclerotic focus in L5 unchanged bone island. Also a 7 cm simple renal cyst on the RIGHT PSA 06/17/21 3.58, being followed by Dr. Hernandez PAST MEDICAL HISTORY Diagnosis Date - ED (erectile dysfunction) of organic origin - Hearing loss - Hypercholesteremia - Hypogonadism in male - Penile cancer (HCC) PAST SURGICAL HISTORY Procedure Laterality Date - BIOPSY, PENIS - COLONOSCOPY multiple - TONSILLECTOMY AND ADENOIDECTOMY HX Social History Tobacco Use - Smoking status: Former Smoker Packs/day: 1.00 Years: 10.00 Pack years: 10.00 Types: Cigarettes Quit date: 1989 Years since quittin.3 - Smokeless tobacco: Never Used Substance Use Topics - Alcohol use: Not Currently - Drug use: Never Current Outpatient Medications on File Prior to Visit Medication Sig - iron,carb/vit C/vit B12/folic (IRON 100 PLUS ORAL) Take by mouth. - sulfamethoxazole-trime thoprim (BACTRIM DS) 800-160 mg per tablet Take 1 tablet by mouth twice daily. - Comp.Stocking,Thigh,Re g,Medium misc 1 Each once daily. - acetaminophen (TYLENOL) 325 mg tablet Take 2 tablets by mouth every 6 hours. (Patient not taking: Reported on 08/07/2021 ) - ibuprofen (MOTRIN) 200 mg tablet Take 1-2 tablets by mouth every 4 hours as needed for Pain. - cholecalciferol (VITAMIN D3) 5,000 unit tab at bedtime as needed. - multivit-min/FA/lycope n/lutein (CENTRUM SILVER MEN ORAL) Take by mouth once daily. - MEDICATION, NON-DATABASE Nureva - brain supplement - Comp.Stocking,Thigh,Lo ng,Large misc 1 Each DAILY (6 AM). Bilateral thigh high claude hose. - rosuvastatin calcium (CRESTOR ORAL) Take 5 mg by mouth once daily. No current facility-administered medications on file prior to visit. ROS: Constitutional: intentional weight loss recently Gastrointestinal: negative PHYSICAL EXAM: There were no vitals taken for this visit. GENERAL: Wnl nutrition, no deformities, healthy appearing ABDOMEN: Soft, nontender, nondistended, no masses. GENITOURINARY: MALE EXAM: the groins without LAD, scars well healed, PU widely patent Min LE edema below knees B DATA/OR LABS TO BE REVIEWED: (Simple=1 data point; Complex= 2 or more) PSA (ng/mL) Date Value 06/17/2021 3.58 Creatinine (mg/dL) Date Value 12/02/2021 1.07 06/17/2021 0.97 07/06/2020 0.86 07/05/2020 0.94 06/28/2020 0.96 06/28/2020 0.97 Creatinine (POCT) (mg/dL) Date Value 12/05/2020 0.90 No results found for: TESTOST A/P: penile cancer, recurrence fall 2019. See back in Fall [address] Doing well with WIL Chávez MD Referring Provider: UMAIR SCALES [[id number]] Allergies As of Date: 12/11/2021 (Not on File) Date Reviewed: 12/11/2021 Reviewed by: Paola Chan [facility]ma - Fully Assessed Visit Diagnosis:Malignant neoplasm of male genital organ (HCC) [C63.9] Prescriptions as of 12/11/2021 - iron,carb/vit C/vit B12/folic (IRON 100 PLUS ORAL) Take by mouth. - sulfamethoxazole-trime thoprim (BACTRIM DS) 800-160 mg per tablet Take 1 tablet by mouth twice daily. - Comp.Stocking,Thigh,Re g,Medium misc 1 Each once daily. - acetaminophen (TYLENOL) 325 mg tablet Take 2 tablets by mouth every 6 hours. - ibuprofen (MOTRIN) 200 mg tablet Take 1-2 tablets by mouth every 4 hours as needed for Pain. - cholecalciferol (VITAMIN D3) 5,000 unit tab at bedtime as needed. - multivit-min/FA/lycope n/lutein (CENTRUM SILVER (more content not included)... Normal [facility] CT ABD/PEL W IVCONon 022 [facility] CNOVon 08-07-2021 CNOV Office Visit (UROAME ) LUIS ANGEL DIXON SR ([id number]) 1950 M Date Time Provider Department 08/07/21 3:45 PM MAYRA CHÁVEZ During your visit today, we recorded the following information about you: Weight Height 90.7 kg 1.676 m Mayra Chávez MD 08/07/2021 4:25 PM Signed HPI: Last seen 12/05/20 : 70 yo s/p penectomy and PU on 07/05/20. Prior glansectomy and then bilateral mIFLNDS in late 2019. Path: ? 5 mo ago Item Processing Clerk Specimen originated from [facility] Specimen #: [id number] Submitting Physician: MAYRA CHÁVEZ MD ? (Q10) FINAL DIAGNOSIS 1. Right corporal body mass, excision (A) - Invasive squamous cell carcinoma, basaloid-type, involving erectile tissue. 2. Penis, excision (B) - Negative for residual neoplasm. JLM/ana luisam 07/10/2020 COMMENT Margin of excision are free of neoplasm. In the excision of the mass (part A), the squamous cell carcinoma involves erectile tissue. The case is discussed with Dr. Chávez who indicates clinically that the mass represents a metastasis. ?CT 06/26/[address] evidence of metastatic disease in the pelvis. 2. Enlarged prostate. Correlate with PSA levels. PSA elevated, being followed by Mary. I forwarded his results to him in May. Occasional pains in his groin area. Fleeting Main concern is spray and flow down groin with voiding attempts. PSA (ng/mL) Date Value 06/17/2021 3.58 Here for 1 year follow up from penectomy PAST MEDICAL HISTORY Diagnosis Date - ED (erectile dysfunction) of organic origin - Hearing loss - Hypercholesteremia - Hypogonadism in male - Penile cancer (HCC) PAST SURGICAL HISTORY Procedure Laterality Date - BIOPSY, PENIS - COLONOSCOPY multiple - TONSILLECTOMY AND ADENOIDECTOMY HX Social History Tobacco Use - Smoking status: Former Smoker Packs/day: 1.00 Years: 10.00 Pack years: 10.00 Types: Cigarettes Quit date: 1989 Years since quittin.9 - Smokeless tobacco: Never Used Substance Use Topics - Alcohol use: Not Currently - Drug use: Never Current Outpatient Medications on File Prior to Visit Medication Sig - iron,carb/vit C/vit B12/folic (IRON 100 PLUS ORAL) Take by mouth. - sulfamethoxazole-trime thoprim (BACTRIM DS) 800-160 mg per tablet Take 1 tablet by mouth twice daily. - Comp.Stocking,Thigh,Re g,Medium misc 1 Each once daily. - acetaminophen (TYLENOL) 325 mg tablet Take 2 tablets by mouth every 6 hours. (Patient not taking: Reported on 12/05/2020 ) - ibuprofen (MOTRIN) 200 mg tablet Take 1-2 tablets by mouth every 4 hours as needed for Pain. (Patient not taking: Reported on 12/05/2020 ) - cholecalciferol (VITAMIN D3) 5,000 unit tab at bedtime as needed. - multivit-min/FA/lycope n/lutein (CENTRUM SILVER MEN ORAL) Take by mouth once daily. - MEDICATION, NON-DATABASE Nureva - brain supplement - metFORMIN (GLUCOPHAGE) 500 mg tablet Take 500 mg by mouth twice daily. - Comp.Stocking,Thigh,Lo ng,Large misc 1 Each DAILY (6 AM). Bilateral thigh high claude hose. - rosuvastatin calcium (CRESTOR ORAL) Take 5 mg by mouth once daily. No current facility-administered medications on file prior to visit. ROS: Constitutional: negative, no weight loss Gastrointestinal: working fine PHYSICAL EXAM: There were no vitals taken for this visit. GENERAL: Wnl nutrition, no deformities, healthy appearing ABDOMEN: Soft, nontender, nondistended, no masses. GENITOURINARY: MALE EXAM: the PU is wide open, no obstrux. No apprec LN in the groin B DATA/OR LABS TO BE REVIEWED: (Simple=1 data point; Complex= 2 or more) PSA (ng/mL) Date Value 06/17/2021 3.58 Creatinine (mg/dL) Date Value 06/17/2021 0.97 07/06/2020 0.86 07/05/2020 0.94 06/28/2020 0.96 06/28/2020 0.97 Creatinine (POCT) (mg/dL) Date Value 12/05/2020 0.90 No results found for: TESTOST A/P: penile cancer WIL- CT 6 months, ordered Advised on techniques to prevent likert flow w urination. He will work on it. See in November Mayra Chávez MD Referring Provider: MAYRA CHÁVEZ [[id number]] Allergies As of Date: 08/07/2021 (Not on File) Date Reviewed: 08/07/2021 Reviewed by: Paola Chan [facility] - Fully Assessed Reason for Visit: pyuria [Other] Visit Diagnosis:Malignant neoplasm of penis (HCC) [C60.9] Order(s):CT ABD/PEL W IVCON [[id number]] Order #: [id number] FUTURE iv contrast (will be provided with radiology test)CT ABD/PEL -Inject, intravenously, once for 1 dose.No IV access, insert saline lock prior to the beginning of sedation, infusion, injection of imaging exam. Discontinue saline lock post exam. If Pt. has a central line or IVAD, may access for administration according to line specific nursing protocol. Once exam is complete flush line and de-access according to line specific nursing protocol in the CT contrast administ (more content not included)... Normal [facility] CT PELVIS W IVCONon 06-06-[address] PELVIS W IVCON Final Report DATE OF EXAM: Jun 06 2020 10:14AM [facility] 0555 - CT PELVIS W IVCON / PROCEDURE REASON: Malignant neoplasm of penis (HCC) Physician Interpretation CT PELVIS WITH IV CONTRAST: CLINICAL INDICATION: Penile cancer. Status post glansectomy with reconstruction. COMPARISON: CT abdomen and pelvis studies 12/07/2019 and 06/30/2019. A series of axial CT images are obtained of the pelvis from above the iliac crest through the ischial tuberosities and scrotum with IV contrast with coronal and sagittal reformations. Contrast: 150 mL Omnipaque [address] Dose-Length Product: [address] Dose Reduction Employed: Automated exposure control and iterative recon There is a 1.5 cm enhancing nodule seen along the proximal to mid dorsal penile shaft on the right, sagittal series 4, image 73, in profile with the corpora cavernosa. The nodule measured 0.6 cm in retrospect on comparison 11/2019, and was not present on comparison 06/2019. There are foci of air at the tip of the penis. There are redemonstrated postoperative changes of the lymph node dissection bilateral groin/inguinal regions and medial proximal thighs. There is no pathologically enlarged pelvic or inguinal lymphadenopathy. The urinary bladder is under distended limiting evaluation. There is redemonstrated right distal ureteral dilatation proximal to the ureterovesical junction measuring approximately 2 cm in length by 1.4 cm in diameter. There is no obstructing calculus. A periureteral diverticulum is considered less likely. There is an incompletely visualized exophytic cyst right kidney measuring 5.7 cm in size. There is an incompletely visualized 0.7 cm cortical hypodensity redemonstrated at the corticomedullary junction of the right kidney. There is diverticulosis of the sigmoid colon. There are no associated pericolic inflammatory changes. There is a normal caliber appendix. IMPRESSION: 1.5 cm enhancing nodule seen along the proximal to mid dorsal penile shaft on the right. Correlation with physical exam findings and further characterization with MR imaging is recommended to evaluate for possible locoregional recurrence. No evidence of pathologically enlarged lymphadenopathy. Supply Chain Director: [facility] Transcribe Date/Time: Jun 06 2020 11:18A Dictated by : JOSE A HANSEN MD This examination was interpreted and the report reviewed and electronically signed by: JOSE A HANSEN MD on Jun 06 2020 11:49AM EST Normal [facility] CBCon 03-01-2017 Basophils/100 WBC Auto (Bld) 0.6 % Normal 0.0-2.5 [facility] Comment on above: Performed By: #### C BC ####[address] [address] Eosinophils/100 leukocytes 2.6 % Normal 0.0-6.0 [facility] Comment on above: Performed By: #### C BC ####[address] [address] Erythrocyte distribution width Auto Ratio (RBC) 13.7 % Normal 11.5-15.5 [facility] Comment on above: Performed By: #### C BC ####[address] [address] Erythrocytes (RBC) 4.62 10 6/mcL Normal 4.50-6.00 [facility] Comment on above: Performed By: #### C BC ####[address] [address] Hematocrit (HCT) 41.8 % Normal 40.0-52.0 [facility] Comment on above: Performed By: #### C BC ####[address] [address] Hemoglobin mass conc (Bld) 14.5 G/dL Normal 13.0-17.5 [facility] Comment on above: Performed By: #### C BC ####[address] [address] Lymphocytes/100 leukocytes 27.9 % Normal 20.0-40.0 [facility] Comment on above: Performed By: #### C BC ####[facility], [address] [place] [address] MCH 31.4 pg Normal 27.0-33.0 [facility] Comment on above: Performed By: #### C BC ####[facility], [address] [place] [address] MCHC mass conc (RBC) 34.7 G/dL Normal 32.0-36.0 [facility] Comment on above: Performed By: #### C BC ####[address] [address] MCV 90.5 fL Normal 81.0-100.0 [facility] Comment on above: Performed By: #### C BC ####[address] [address] Monocytes/100 leukocytes 8.0 % Normal 2.0-13.0 [facility] Comment on above: Performed By: #### C BC ####[address] [address] Neutrophils 4.80 10 3/mcL Normal 2.00-8.00 [facility] Comment on above: Performed By: #### C BC ####[address] [address] Neutrophils/100 WBC Auto (Bld) 60.9 % Normal 50.0-75.0 [facility] Comment on above: Performed By: #### C BC ####[address] [address] Platelet mean volume (PMV) 9.2 fL Normal 6.4-10.5 [facility] Comment on above: Performed By: #### C BC ####[facility], [address] [place] [address] Platelets 197 10 3/mcL Normal 150-450 [facility] Comment on above: Performed By: #### C BC ####[address] [address] WBC (Leukocytes) 7.90 10 3/mcL Normal 4.50-10.80 [facility] Comment on above: Performed By: #### C BC ####[place] [id number] Comp. Metabolic Panelon 07-0 Alk. Phosphatase 59 U/L Normal 38-126 [facility] Comment on above: Performed By: #### C MP ####[place] [id number] Albumin/Globulin Ratio 1.4 {ratio} Normal 0.9-1.6 [facility] Comment on above: Performed By: #### C MP ####[place] [id number] Globulin 2.9 G/dL Normal 1.5-3.8 [facility] Comment on above: Performed By: #### C MP ####[place] [id number] T. Protein 7.1 G/dL Normal 6.0-8.5 [facility] Comment on above: Performed By: #### C MP ####[place] [id number] Bilirubin (direct) 0.5 mg/dL Normal 0.2-1.2 Replaced by [facility] Comment on above: Performed By: #### C MP ####[place] [id number] Alanine aminotransferase (ALT) 40 U/L Normal 12-55 [facility] Comment on above: Performed By: #### C MP ####[place] [id number] BUN/Creatinine Ratio 19.0 mg/mg Normal 10.0-22.0 [facility] Comment on above: Performed By: #### C MP ####[facility], [address] [place] [address] Creatinine 0.84 mg/dL Normal 0.60-1.40 [facility] Comment on above: Performed By: #### C MP ####[facility], [address] [place] [address] Aspartate aminotransferase (AST) 24 U/L Normal 8-34 [facility] Comment on above: Performed By: #### C MP ####[facility], [address] [place] [address] Glucose mass conc 96 mg/dL Normal 82-115 [facility] Comment on above: Performed By: #### C MP ####[facility], [address] [place] [address] Albumin 4.2 G/dL Normal 3.2-4.8 [facility] Comment on above: Performed By: #### C MP ####[address] [address] CO2 27 mmol/L Normal 22-32 [facility] Comment on above: Performed By: #### C MP ####[facility], [address] [place] [address] Electrolyte Balance 10.0 mEq/L Normal 4.0-15.0 [facility] Comment on above: Performed By: #### C MP ####[address] [address] Urea nitrogen 16.0 mg/dL Normal 8.0-22.0 [facility] Comment on above: Performed By: #### C MP ####[facility], [address] [place] [address] Calcium 8.8 mg/dL Normal 8.4-10.1 [facility] Comment on above: Performed By: #### C MP ####[address] [address] Chloride 104 mmol/L Normal 98-110 [facility] Comment on above: Performed By: #### C MP ####[address] [address] Potassium molar conc 4.0 mmol/L Normal 3.5-5.0 [facility] Comment on above: Performed By: #### C MP ####[facility], [address] [place] [address] Sodium 141 mmol/L Normal 136-145 [facility] Comment on above: Performed By: #### C MP ####[facility], [address] [place] [address] Glomerular Filtration Rate E chantalateon 03-01-2017 eGFR (non-black) mL/min/{1.73_m2} Normal [facility] Comment on above: Performed By: #### G FR ####[facility], [address] [place] [address] Result Comment: Zurdo castro mean GFR = 85 mL/min/1.73 sq.m. for ages 60-69 years. Chronic Kidney Disease: Less than 60 mL/min/1.73 square metersEnd Stage Renal Disease: Less than 15 mL/min/1.73 square meters Prostate Spec. Agon 03-01-20 17 Prostate Spec. Ag 1.35 ng/mL Normal 0.02-4.00 [facility] Comment on above: Performed By: #### P SA ####[facility], [address] [place] [address] Vital Signs Date Time Vital Sign Value Performing Clinician Rebecca watson 05-09-2024 14:32-0400 Body mass index (BMI) [Ratio] 32.2 kg/m2 Krislyn Aberegg PA Work Phone: [facility] 05-09-2024 14:32-0400 Body temperature 98.91 [degF] Krislyn Aberegg PA Work Phone: [facility] 05-09-2024 14:32-0400 Body weight 90.5 kg Krislyn Aberegg PA Work Phone: [facility] 05-09-2024 14:32-0400 Diastolic blood pressure 72 mm[Hg] Krislyn Aberegg PA Work Phone: [facility] 05-09-2024 14:32-0400 Heart rate 100 /min Krislyn Aberegg PA Work Phone: [facility] 05-09-2024 14:32-0400 Respiratory rate 16 /min Krislyn Aberegg PA Work Phone: [facility] 05-09-2024 14:32-0400 SaO2% (BldA) [Mass fraction] 96 % Krislyn Aberegg PA Work Phone: [facility] 05-09-2024 14:32-0400 Systolic blood pressure 118 mm[Hg] Krislyn Aberegg PA Work Phone: [facility] 01-23-2023 13:52-0400 Body temperature 97.9 [degF] Mita Athy PA-C Work Phone: [facility] 01-23-2023 13:52-0400 Body weight 91.17 kg Mita Athy PA-C Work Phone: [facility] 01-23-2023 13:52-0400 Diastolic blood pressure 68 mm[Hg] Mita Athy PA-C Work Phone: [facility] 01-23-2023 13:52-0400 Heart rate 86 /min Mita Athy PA-C Work Phone: [facility] 01-23-2023 13:52-0400 Respiratory rate 16 /min Mita Athy PA-C Work Phone: [facility] 01-23-2023 13:52-0400 SaO2% (BldA) [Mass fraction] 98 % Mita Athy PA-C Work Phone: [facility] 01-23-2023 13:52-0400 Systolic blood pressure 126 mm[Hg] Mita Athy PA-C Work Phone: [facility] 12-11-2021 11:50-0400 Body height 167.6 cm Mayra Chávez MD Work Phone: [facility] 12-11-2021 11:50-0400 Body weight 90.72 kg Mayra Chávez MD Work Phone: [facility] Encounters Encounter Date Encounter Type Care Provider Facility Start: 05-09-2024 End: 05-09-2024 ambulatory UMAIR SCALES Facility:[facility] Start: 05-09-2024 End: 05-09-2024 Patient encounter procedure Marguerite GARDINER Work Phone: [facility] Comment on above: Acute pain of right knee (Primary Dx) Start: 05-09-2024 End: 05-09-2024 Subsequent hospital visit by physician Xr [facility] Jose Rafael Work Phone: Radiology Comment on above: Acute pain of right knee [M25.561] Start: 03-03-2024 End: 03-03-2024 ambulatory SERA DAI MD Facility:A Start: 01-23-2023 End: 01-23-2023 Subsequent hospital visit by physician Xr [facility] Comment on above: Toe pain, left [M79. 675] Start: 01-23-2023 End: 01-23-2023 Patient encounter procedure Mita GARDINER-C Work Phone: [facility] Comment on above: Toe pain, left (Prim rosalio Dx) Start: 01-23-2023 Telephone encounter Mita ríos PA-C Work Phone: [facility] Comment on above: Results Start: 12-11-2021 End: 12-11-2021 Patient encounter procedure Mayra Chávez MD Work Phone: Urology Comment on above: Malignant neoplasm o f male genital organ (HCC) Start: 12-02-2021 End: 12-02-2021 Subsequent hospital visit by physician Diane [facility] Wstr (I-Stat) Work Phone: [facility] Comment on above: Malignant neoplasm o f penis (HCC) [C60.9] Start: 11-26-2021 Orders Only Shona Anaya on [employer] Work Phone: Urology Comment on above: Malignant neoplasm o f penis (HCC) (Primary Dx) Start: 03-01-2017 End: 03-02-2017 Ambulatory ONOFRE ENAMORADO Facility:[facility] Procedures Date Procedure Procedure Detail Performing Clinician Start: 05-09-2024 Radiologic exam knee complete 4/more views Marguerite GARDINER Work Phone: Start: 01-23-2023 Radex toe minimum 2 views Mita Muñiz PA-C Work Phone: Start: 12-02-2021 Ct abdomen & pelvis w/contrast material Mayra Chávez MD Work Phone: Start: 08-03-2019 Adult depression screening assessment Shona Angelyjalyn BARTHOLOMEW Work Phone: Plan of Treatment Date Care Activity Detail Author Start: 05-24-2024 End: 05-24-2024 Patient encounter procedure 05/24/2024 11:00 AM EDT Office Visit Orthopaedics [address] [id number] Scott Pedroza PA-C [address] [phone] Acute pain of right knee [M25.561] Orthopaedics Comment on above: Acute pain of right knee [M25.561] Start: 04-30-2024 Covid-19 Vaccine ( season) Covid-19 Vaccine ( season) [facility] Start: 04-30-2024 Influenza vaccination Influenza Vacc ine (#1) [facility] Start: 08-30-2023 Advance Directive Discussion Advance Directive Discussion [facility] Start: 08-30-2022 ADVANCE DIRECTIVE DISCUSSION ADVANCE DIRECTIVE DISCUSSION [facility] Start: 08-30-2022 DEPRESSION ASSESSMENT DEPRESSION ASS ESSMENT [facility] Start: 04-30-2022 Influenza vaccination INFLUENZ A (Season Ended) [facility] Start: 12-02-2021 End: 02-01-2022 CREATININE BLD CREATININE BLD Lab STAT Malignant neoplasm of penis (HCC) Expected: 12/02/2021, Expires: 02/01/2022 [facility] Work Phone: Comment on above: Expected: 12/02/2021 , Expires: 02/01/2022 Start: 08-30-2021 ADVANCE DIRECTIVE DISCUSSION ADVANCE DIRECTIVE DISCUSSION [facility] Start: 04-30-2021 Influenza vaccination INFLUENZA (#1) [facility] Start: 12-27-2020 Hemoglobin A1c measurement HbA1C [facility] Start: 12-27-2020 Hemoglobin A1c/Hemoglobin.total in Blood HBA1C [facility] Start: 08-03-2020 Adult depression screening assessment DEPRESSION SCREENING [facility] Start: 2016 PNEUMOVAX AGE 65 AND OVER WITH 5YR LOOKBACK (#1) PNEUMOVAX AGE 65 AND OVER WITH 5YR LOOKBACK (#1) [facility] Start: 2011 RSV Vaccine (1 - 1-d ose 60+ series) RSV Vaccine (1 - 1-dose 60+ series) [facility] Start: 2001 SHINGRIX VACCINE (1 of 2) SHINGRIX VACCINE (1 of 2) [facility] Start: 1996 COLOGUARD (FIT-DNA) COLOGUARD (FIT-D NA) [facility] Start: 1996 Colonoscopy COLONOSCOPY [facility] Start: 1996 COLORECTAL CANCER SCREENING COLORECTAL CANCER SCREENING [facility] Start: [address] COLONOGRAPHY [facility] Start: 1996 FECAL OCCULT BLOOD FECAL OCCULT BLOO D [facility] Start: 1996 Screening for malign ant neoplasm of colon [facility] Start: 1996 SIGMOIDOSCOPY SIGMOIDOSCOPY [facility] Start: 1970 Urine microalbumin profile [facility] Start: 1969 ANNUAL PCP TEAM BISQUE KILN PLACER GEOFFREY DISEASE VISIT ANNUAL PCP TEAM CHRONIC DISEASE VISIT [facility] Start: 1969 Anxiety Screening Anxiety Screening [facility] Start: 1969 Depression Screening Depression Scre ening [facility] Start: 1969 Hepatitis B surface antibody level LDL CHOLESTEROL [facility] Start: 1961 3 comp foot exam completed DIABETIC FOOT EXAM [facility] Start: 1961 Diabetic foot examination Diabetic Foot Exam [facility] Start: 1961 Glaucoma screening Dilated Retinal E xam [facility] Start: 1961 Hepatitis B screening URINE ALBUMIN:CREATININE RATIO [facility] Start: 1961 Hepatitis C antibody , confirmatory test DILATED RETINAL EXAM [facility] Start: 1957 Pneumococcal Vaccine : 65+ (1 of 2 - PCV) Pneumococcal Vaccine: 65+ (1 of 2 - PCV) [facility] Start: 1957 PNEUMOCOCCAL: 65+ (1 - PCV) PNEUMOCOCCAL: 65+ (1 - PCV) [facility] Start: 1951 ABDOMINAL AORTIC ANEURYSM SCREENING ABDOMINAL AORTIC ANEURYSM SCREENING [facility] Start: 1951 Abdominal aortic aneurysm screening Abdominal Aortic Aneurysm Screening [facility] Immunizations Immunization Date Immunization Notes Care Provider Fa marcella 07-26-2023 influenza virus vaccine, unspecified formulation Marguerite GARDINER Work Phone: [facility] 06-17-2020 influenza, seasonal, injectable Shona Fry [employer] Work Phone: [facility] NEGATED: Highlighted row has not occurred!07-05-2020 pneumococcal polysaccharide vaccine, 23 valent Shona Auigon [employer] Work Phone: [facility] Comment on above: Deferred: Patient Re fused - Plans to get at post-op appt. w/ PCP Payers Date Payer Category Payer Medicare UHC MEDICARE UHC MEDICARE ADVANTAGE PPO [id number] 2019-Present [phone] [address] [address] [place] [address] PPO [id number] 2019 Private Health Insurance [id number] 2017 Medicare 1950 Unknown [id number] Social History Date Type Detail Facility Start: 06-28-2020 End: 05-09-2024 Tobacco smoking status NHIS Ex-smoker [facility] Start: 08-30-1979 End: 08-30-1989 History of tobacco use Current smoker [facility] Start: 08-30-1979 End: 08-30-1989 History of tobacco use Cigarette Smoker [facility] Start: 06-28-2020 End: 08-05-2020 Cigarettes smoked current (pack per day) - Reported 1 [facility] Start: 06-28-2020 End: 05-09-2024 Tobacco use and exposure Smokeless tobacco non-user [facility] Start: 08-07-2021 End: 05-09-2024 Alcohol intake Ex-drinker (finding) [facility] Start: 07-11-2020 History SDOH Alcohol Frequency 1 [facility] Start: 1950 Sex Assigned At Male [facility] Start: 07-11-2020 End: 08-05-2020 Alcohol Use Disorder Identification Test - Consumption [AUDIT-C] [facility] How often to you hav e a drink containing alcohol? Never [facility] Average Number of Drinks Not on file [facility] Work Phone: Start: 12-05-2019 Gender identity Identifies as male gender (finding) [facility] Clinical Notes 08-07-2021 to 05-09-2024 Patient InstructionsJolynn Marina RT(R) - 05/09/2024 3:00 PM Marguerite Fitzpatrick PA - 05/09/2024 2:37 PM EDTTelephone Encounter - Mita Muñiz PA-C - 01/23/2023 3:29 PM EDT Note Date & Type Note Facility 05-09-2024 Instructions Marguerite Sullivan PA - 05/09/2024 3:06 PM EDT R.I.C.E. The general care of your injury includes the following: Resting, Icing, Compressing and Elevating the injured area. Remember this as RICE. REST: Limit the use of the injured body part. ICE: By applying ice to the affected area, swelling and pain can be reduced. Place some ice cubes in a re-sealable (Ziploc) bag and add some water. Put a thin washcloth between the bag and your skin. Apply the ice bag to the area for at least 20 minutes. Do this at least 4 times per day. Using the ice for longer times and more frequently is OK. NEVER APPLY ICE DIRECTLY TO THE SKIN. COMPRESS: Compression means to apply pressure around the injured area such as with a splint, cast or an daisy bandage. Compression decreases swelling and improves comfort. Compression should be tight enough to relieve swelling but not so tight as to decrease circulation. Increasing pain, numbness, tingling, or change in skin color, are all signs of decreased circulation. ELEVATE: Elevate the injured part. For example, elevate your foot by placing it on a chair while sitting, or propping it up on pillows when lying down. documented in this encounter [facility] 05-09-2024 History of Present illness Narrative Radiology Service Progress Note PATIENT NAME: Luis Angel Dixon DATE OF SERVICE: May 09, 2024 TIME: 2:38 PM PATIENT IDENTITY VERIFICATION COMPLETED USING TWO (2) IDENTIFIERS: Name and Date of confirmed by patient verbally. FALL SCREENING: Has the patient had 2 falls in the last year or 1 fall with injury or currently using an Ambulatory Assistive Device (Walker, Cane, Wheelchair, Crutches, etc.)? No PATIENT GENDER DATA: Male PATIENT RELEVANT IMPLANT DATA REVIEWED: Not Applicable PATIENT PRESENTS WITH AN IMPLANTABLE OR ATTACHED TRUCKING MANAGER: No RADIOLOGY DEPARTMENT: General X-ray: Exam(s) Completed: Lower Extremity X-Ray(s): Knee, AP / Lat / Tunne / Merchant Right and Wt. Bearing PERIPHERAL IV DATA: Not applicable SIGNED BY: RT Jack(June) May 09, 2024 2:38 PM documented in this encounter [facility] 05-09-2024 Note HNO ID: [id number] Author: JOLYNN MARINA RT(June) Service: Radiology Author Type: Technologist Type: Progress Notes Filed: 05/09/2024 14:49 Note Text: Radiology Service Progress Note PATIENT NAME: Luis Angel Dixon DATE OF SERVICE: May 09, 2024 TIME: 2:38 PM PATIENT IDENTITY VERIFICATION COMPLETED USING TWO (2) IDENTIFIERS: Name and Date of confirmed by patient verbally. FALL SCREENING: Has the patient had 2 falls in the last year or 1 fall with injury or currently using an Ambulatory Assistive Device (Walker, Cane, Wheelchair, Crutches, etc.)? No PATIENT GENDER DATA: Male PATIENT RELEVANT IMPLANT DATA REVIEWED: Not Applicable PATIENT PRESENTS WITH AN IMPLANTABLE OR ATTACHED TRUCKING MANAGER: No RADIOLOGY DEPARTMENT: General X-ray: Exam(s) Completed: Lower Extremity X-Ray(s): Knee, AP / Lat / Tunne / Merchant Right and Wt. Bearing PERIPHERAL IV DATA: Not applicable SIGNED BY: RT Jack(R) May 09, 2024 2:38 PM [facility] 05-09-2024 Note HNO ID: [id number] Author: MARGUERITE SULLIVAN PA Service: ? Author Type: Physician Commander Internal Affairs Type: Progress Notes Filed: 05/09/2024 15:09 Note Text: This note was created using Nurigeneriter. Subjective Luis Angel Dixon is a 73 year old male. HPI 73-year-old male presents for right knee pain. Patient has been having right knee pain for the past week. Patient states that he stepped down off of a curb and leonor his knee. He had pain immediately afterwards. He points to his lateral knee and behind the knee. Still able to ambulate, but reports pain with ambulation. He took an Aleve 1 time, but did not really seem to help with the pain. He denies any fevers. No calf pain or swelling. No recent travel. No other complaint. PAST MEDICAL HISTORY No date: ED (erectile dysfunction) of organic origin No date: Hearing loss No date: Hypercholesteremia No date: Hypogonadism in male No date: Penile cancer (HCC) PAST SURGICAL HISTORY No date: BIOPSY PENIS SEPARATE PROCEDURE No date: COLONOSCOPY Comment: multiple No date: TONSILLECTOMY AND ADENOIDECTOMY HX ALLERGIES Ondansetron MEDICATIONS tamsulosin (FLOMAX) 0.4 mg Take 0.4 mg by mouth every morning. metFORMIN (GLUCOPHAGE) 850 mg tablet Take 850 mg by mouth twice daily. iron,carb/vit C/vit B12/folic (IRON 100 PLUS ORAL) Take by mouth. Comp.Stocking,Thigh,Reg,Medium misc 1 Each once daily. ibuprofen (MOTRIN) 200 mg tablet Take 1-2 tablets by mouth every 4 hours as needed for Pain. cholecalciferol (VITAMIN D3) 5,000 unit tab at bedtime as needed. multivit-min/FA/lycopen/lutein (CENTRUM SILVER MEN ORAL) Take by mouth once daily. MEDICATION, NON-DATABASE Nureva - brain supplement Comp.Stocking,Thigh,Long,Large misc 1 Each DAILY (6 AM). Bilateral thigh high claude hose. rosuvastatin calcium (CRESTOR ORAL) Take 5 mg by mouth once daily. sulfamethoxazole-trimethoprim (BACTRIM DS) 800-160 mg per tablet Take 1 tablet by mouth twice daily. (Patient not taking: Reported on 12/11/2021 ) acetaminophen (TYLENOL) 325 mg tablet Take 2 tablets by mouth every 6 hours. (Patient not taking: Reported on 08/07/2021 ) FAMILY HISTORY Problem Relation Age of Onset COPD Mother No Known Problems Father Cancer Sister No Known Problems Brother Prostate Cancer Brother No Known Problems Brother No Known Problems Brother No Known Problems Brother No Known Problems Sister Social History Tobacco Use Smoking status: Former Current packs/day: 0.00 Average packs/day: 1 pack/day for 10.0 years (10.0 ttl pk-yrs) Types: Cigarettes Start date: 1979 Quit date: 1989 Years since quittin.7 Smokeless tobacco: Never Substance Use Topics Alcohol use: Not Currently Drug use: Never Review of Systems Constitutional: Negative for chills and fever. HENT: Negative for congestion and sore throat. Respiratory: Negative for cough and shortness of breath. Gastrointestinal: Negative for diarrhea and vomiting. Musculoskeletal: Positive for arthralgias and joint swelling. Objective BP 118/72 Pulse 100 Temp 37.2 ?C (98.9 ?F) Resp 16 Wt 90.5 kg (199 lb 8.3 oz) SpO2 96% BMI 32.20 kg/m? Physical Exam Vitals and nursing note reviewed. Constitutional: General: He is not in acute distress. Appearance: Normal appearance. He is not toxic-appearing. Cardiovascular: Rate and Rhythm: Normal rate and regular rhythm. Pulmonary: Effort: Pulmonary effort is normal. Breath sounds: Normal breath sounds. Musculoskeletal: Right knee: Swelling and bony tenderness present. Normal range of motion. Tenderness present over the lateral joint line. Comments: Normal ROM right knee. Patient does report pain with movement. Mild crepitation noted in the right knee. Tenderness over the lateral joint line and posterior knee. No calf pain swelling or tenderness. DP and PT pulses 2+. Normal sensation right lower extremity. Able to ambulate. Generalized swelling noted around the knee. Skin: General: Skin is warm and dry. Neurological: Mental Status: He is alert. Assessment and Plan ASSESSMENT/PLAN: 1. Acute pain of right knee - ICD9: 719.46, ICD10: M25.561 - XR KNEE GENERAL 4V AP BOTH/PA BOTH/LAT/MERC RIGHT-no acute osseous abnormality -Recommend rest, ice, elevation, Tylenol/Motrin as needed for pain. -Patient has a brace, may wear brace as needed for comfort. - CONSULT TO ORTHOPAEDICS Diagnosis and treatment plan were discussed and questions were answered to the patient's satisfaction. Pt acknowledged understanding of concepts and follow up plan. Specific signs and symptoms that would indicate the need for higher level of care were discussed in detail warranting prompt ER evaluation. ZULEYKA White [facility] 05-09-2024 History of Present illness Narrative This note was created using Todacellter. Subjective Luis Angel Dixon is a 73 year old male. HPI 73-year-old male presents for right knee pain. Patient has been having right knee pain for the past week. Patient states that he stepped down off of a curb and leonor his knee. He had pain immediately afterwards. He points to his lateral knee and behind the knee. Still able to ambulate, but reports pain with ambulation. He took an Aleve 1 time, but did not really seem to help with the pain. He denies any fevers. No calf pain or swelling. No recent travel. No other complaint. PAST MEDICAL HISTORY No date: ED (erectile dysfunction) of organic origin No date: Hearing loss No date: Hypercholesteremia No date: Hypogonadism in male No date: Penile cancer (HCC) PAST SURGICAL HISTORY No date: BIOPSY PENIS SEPARATE PROCEDURE No date: COLONOSCOPY Comment: multiple No date: TONSILLECTOMY AND ADENOIDECTOMY HX ALLERGIES Ondansetron MEDICATIONS tamsulosin (FLOMAX) 0.4 mg Take 0.4 mg by mouth every morning. metFORMIN (GLUCOPHAGE) 850 mg tablet Take 850 mg by mouth twice daily. iron,carb/vit C/vit B12/folic (IRON 100 PLUS ORAL) Take by mouth. Comp.Stocking,Thigh,Reg,Medium misc 1 Each once daily. ibuprofen (MOTRIN) 200 mg tablet Take 1-2 tablets by mouth every 4 hours as needed for Pain. cholecalciferol (VITAMIN D3) 5,000 unit tab at bedtime as needed. multivit-min/FA/lycopen/lutein (CENTRUM SILVER MEN ORAL) Take by mouth once daily. MEDICATION, NON-DATABASE Nureva - brain supplement Comp.Stocking,Thigh,Long,Large misc 1 Each DAILY (6 AM). Bilateral thigh high claude hose. rosuvastatin calcium (CRESTOR ORAL) Take 5 mg by mouth once daily. sulfamethoxazole-trimethoprim (BACTRIM DS) 800-160 mg per tablet Take 1 tablet by mouth twice daily. (Patient not taking: Reported on 12/11/2021 ) acetaminophen (TYLENOL) 325 mg tablet Take 2 tablets by mouth every 6 hours. (Patient not taking: Reported on 08/07/2021 ) FAMILY HISTORY Problem Relation Age of Onset COPD Mother No Known Problems Father Cancer Sister No Known Problems Brother Prostate Cancer Brother No Known Problems Brother No Known Problems Brother No Known Problems Brother No Known Problems Sister Social History Tobacco Use Smoking status: Former Current packs/day: 0.00 Average packs/day: 1 pack/day for 10.0 years (10.0 ttl pk-yrs) Types: Cigarettes Start date: 1979 Quit date: 1989 Years since quittin.7 Smokeless tobacco: Never Substance Use Topics Alcohol use: Not Currently Drug use: Never Review of Systems Constitutional: Negative for chills and fever. HENT: Negative for congestion and sore throat. Respiratory: Negative for cough and shortness of breath. Gastrointestinal: Negative for diarrhea and vomiting. Musculoskeletal: Positive for arthralgias and joint swelling. Objective BP 118/72 Pulse 100 Temp 37.2 C (98.9 F) Resp 16 Wt 90.5 kg (199 lb 8.3 oz) SpO2 96% BMI 32.20 kg/m Physical Exam Vitals and nursing note reviewed. Constitutional: General: He is not in acute distress. Appearance: Normal appearance. He is not toxic-appearing. Cardiovascular: Rate and Rhythm: Normal rate and regular rhythm. Pulmonary: Effort: Pulmonary effort is normal. Breath sounds: Normal breath sounds. Musculoskeletal: Right knee: Swelling and bony tenderness present. Normal range of motion. Tenderness present over the lateral joint line. Comments: Normal ROM right knee. Patient does report pain with movement. Mild crepitation noted in the right knee. Tenderness over the lateral joint line and posterior knee. No calf pain swelling or tenderness. DP and PT pulses 2+. Normal sensation right lower extremity. Able to ambulate. Generalized swelling noted around the knee. Skin: General: Skin is warm and dry. Neurological: Mental Status: He is alert. Assessment and Plan ASSESSMENT/PLAN: 1. Acute pain of right knee - ICD9: 719.46, ICD10: M25.561 - XR KNEE GENERAL 4V AP BOTH/PA BOTH/LAT/MERC RIGHT-no acute osseous abnormality -Recommend rest, ice, elevation, Tylenol/Motrin as needed for pain. -Patient has a brace, may wear brace as needed for comfort. - CONSULT TO ORTHOPAEDICS Diagnosis and treatment plan were discussed and questions were answered to the patient's satisfaction. Pt acknowledged understanding of concepts and follow up plan. Specific signs and symptoms that would indicate the need for higher level of care were discussed in detail warranting prompt ER evaluation. ZULEYKA White documented in this encounter [facility] 01-23-2023 Miscellaneous Notes I called and discussed mild degenerative changes on toe x-ray. Likely gout. Sent prednisone to his pharmacy. Rest, ice, if not better follow-up with PCP. documented in this encounter [facility] 01-23-2023 History of Present illness Narrative This note was created using Nurigeneriter. Subjective Luis Angel Dixon is a 72 year old male. HPI Patient presents with a chief complaint of left great toe pain over the past 2 to 3 days. He denies any injury or trauma. He woke up morning and it was really painful and swollen. He is diabetic, well controlled states his last A1c was 6.2. Denies any fever or chills. No drainage from the foot. He denies history of gout. Review of Systems Musculoskeletal: Left toe pain All other systems reviewed and are negative. PAST MEDICAL HISTORY Diagnosis Date ED (erectile dysfunction) of organic origin Hearing loss Hypercholesteremia Hypogonadism in male Penile cancer (HCC) Current Outpatient Medications Medication Sig Dispense Refill iron,carb/vit C/vit B12/folic (IRON 100 PLUS ORAL) Take by mouth. ibuprofen (MOTRIN) 200 mg tablet Take 1-2 tablets by mouth every 4 hours as needed for Pain. cholecalciferol (VITAMIN D3) 5,000 unit tab at bedtime as needed. multivit-min/FA/lycopen/lutein (CENTRUM SILVER MEN ORAL) Take by mouth once daily. MEDICATION, NON-DATABASE Nureva - brain supplement rosuvastatin calcium (CRESTOR ORAL) Take 5 mg by mouth once daily. tamsulosin (FLOMAX) 0.4 mg Take 0.4 mg by mouth every morning. metFORMIN (GLUCOPHAGE) 850 mg tablet Take 850 mg by mouth twice daily. sulfamethoxazole-trimethoprim (BACTRIM DS) 800-160 mg per tablet Take 1 tablet by mouth twice daily. (Patient not taking: Reported on 12/11/2021 ) 14 tablet 0 Comp.Stocking,Thigh,Reg,Medium misc 1 Each once daily. 3 Each 11 acetaminophen (TYLENOL) 325 mg tablet Take 2 tablets by mouth every 6 hours. (Patient not taking: Reported on 08/07/2021 ) Comp.Stocking,Thigh,Long,Large misc 1 Each DAILY (6 AM). Bilateral thigh high claude hose. 2 Each 0 No current facility-administered medications for this visit. PAST SURGICAL HISTORY Procedure Laterality Date BIOPSY PENIS SEPARATE PROCEDURE COLONOSCOPY multiple TONSILLECTOMY AND ADENOIDECTOMY HX FAMILY HISTORY Problem Relation Age of Onset COPD Mother No Known Problems Father Cancer Sister No Known Problems Brother Prostate Cancer Brother No Known Problems Brother No Known Problems Brother No Known Problems Brother No Known Problems Sister Social History Tobacco Use Smoking status: Former Packs/day: 1.00 Years: 10.00 Pack years: 10.00 Types: Cigarettes Quit date: 1989 Years since quittin.4 Smokeless tobacco: Never Substance Use Topics Alcohol use: Not Currently Drug use: Never Objective BP 126/68 Pulse 86 Temp 36.6 C (97.9 F) Resp 16 Wt 91.2 kg (201 lb) SpO2 98% BMI 32.44 kg/m Physical Exam Vitals reviewed. Constitutional: Appearance: Normal appearance. HENT: Head: Normocephalic and atraumatic. Musculoskeletal: Comments: Exam of the left great toe reveals tenderness to palpation to the MTP of the first digit. Some mild erythema and warmth. No open wounds noted. Pain worsened with weightbearing. No tenderness of the interphalangeal joint. Pedal pulses 2+. Skin: General: Skin is warm and dry. Neurological: Mental Status: He is alert. Assessment and Plan ASSESSMENT/PLAN: 1. Toe pain, left - ICD9: 729.5, ICD10: M79.675 Likely gout. I did recommend an x-ray, patient is leaving tomorrow morning for [place] for vacation. I did have him go to [facility] to have an outpatient x-ray done since ours is closed until Wednesday. Will call on results. - XR TOE AP/LAT/OBL LEFT Mita Muñiz PA-C documented in this encounter [facility] 12-11-2021 Note HNO ID: [id number] Author: Mayra Chávez MD Service: ? Author Type: Physician Type: Progress Notes Filed: 12/11/2021 12:32 PM Note Text: ct pelvisHPI: Last seen 08/07/21 70 yo s/p penectomy and PU on 07/05/20. Prior glansectomy and then bilateral mIFLNDS in late 2018. 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 5 mo ago Item Processing Clerk Specimen originated from [facility] Specimen #: [id number] Submitting Physician: MAYAR CHÁVEZ MD ? (Q10) FINAL DIAGNOSIS 1. Right corporal body mass, excision (A) - Invasive squamous cell carcinoma, basaloid-type, involving erectile tissue. 2. Penis, excision (B) - Negative for residual neoplasm. JLM/fernando 07/10/2020 COMMENT Margin of excision are free of neoplasm. In the excision of the mass (part A), the squamous cell carcinoma involves erectile tissue. The case is discussed with Dr. Chávez who indicates clinically that the mass represents a metastasis. CT scan 12/02/21 No pelvic mass. ?Innumerable clips in the inguinal femoral regions without lymphadenopathy. ?Mild linear soft tissue thickening at lymphadenectomy sites. ?No external iliac or common iliac lymphadenopathy. Bones/Soft Tissues: Degenerative changes. ?Punctate sclerotic focus in L5 unchanged bone island. Also a 7 cm simple renal cyst on the RIGHT PSA 06/17/21 3.58, being followed by Dr. Hernandez PAST MEDICAL HISTORY Diagnosis Date - ED (erectile dysfunction) of organic origin - Hearing loss - Hypercholesteremia - Hypogonadism in male - Penile cancer (HCC) PAST SURGICAL HISTORY Procedure Laterality Date - BIOPSY, PENIS - COLONOSCOPY multiple - TONSILLECTOMY AND ADENOIDECTOMY HX Social History Tobacco Use - Smoking status: Former Smoker Packs/day: 1.00 Years: 10.00 Pack years: 10.00 Types: Cigarettes Quit date: 1989 Years since quittin.3 - Smokeless tobacco: Never Used Substance Use Topics - Alcohol use: Not Currently - Drug use: Never Current Outpatient Medications on File Prior to Visit Medication Sig - iron,carb/vit C/vit B12/folic (IRON 100 PLUS ORAL) Take by mouth. - sulfamethoxazole-trimethoprim (BACTRIM DS) 800-160 mg per tablet Take 1 tablet by mouth twice daily. - Comp.Stocking,Thigh,Reg,Medium misc 1 Each once daily. - acetaminophen (TYLENOL) 325 mg tablet Take 2 tablets by mouth every 6 hours. (Patient not taking: Reported on 08/07/2021 ) - ibuprofen (MOTRIN) 200 mg tablet Take 1-2 tablets by mouth every 4 hours as needed for Pain. - cholecalciferol (VITAMIN D3) 5,000 unit tab at bedtime as needed. - multivit-min/FA/lycopen/lutein (CENTRUM SILVER MEN ORAL) Take by mouth once daily. - MEDICATION, NON-DATABASE Nureva - brain supplement - Comp.Stocking,Thigh,Long,Large misc 1 Each DAILY (6 AM). Bilateral thigh high claude hose. - rosuvastatin calcium (CRESTOR ORAL) Take 5 mg by mouth once daily. No current facility-administered medications on file prior to visit. ROS: Constitutional: intentional weight loss recently Gastrointestinal: negative PHYSICAL EXAM: There were no vitals taken for this visit. GENERAL: Wnl nutrition, no deformities, healthy appearing ABDOMEN: Soft, nontender, nondistended, no masses. GENITOURINARY: MALE EXAM: the groins without LAD, scars well healed, PU widely patent Min LE edema below knees B DATA/OR LABS TO BE REVIEWED: (Simple=1 data point; Complex= 2 or more) PSA (ng/mL) Date Value 06/17/2021 3.58 Creatinine (mg/dL) Date Value 12/02/2021 1.07 06/17/2021 0.97 07/06/2020 0.86 07/05/2020 0.94 06/28/2020 0.96 06/28/2020 0.97 Creatinine (POCT) (mg/dL) Date Value 12/05/2020 0.90 No results found for: TESTOST A/P: penile cancer, recurrence fall 2019. See back in Fall [address] Doing well with WIL Chávez MD [facility] 12-11-2021 History of Present illness Narrative ct pelvisHPI: Last seen 08/07/21 70 yo s/p penectomy and PU on 07/05/20. Prior glansectomy and then bilateral mIFLNDS in late 2018. 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 Right corporal body mass, excision (A) - Invasive squamous cell carcinoma, basaloid-type, involving erectile tissue. 2. Penis, excision (B) - Negative for residual neoplasm. JLM/ana luisam 07/10/2020 COMMENT Margin of excision are free of neoplasm. In the excision of the mass (part A), the squamous cell carcinoma involves erectile tissue. The case is discussed with Dr. Chávez who indicates clinically that the mass represents a metastasis. CT scan 12/02/21 No pelvic mass. Innumerable clips in the inguinal femoral regions without lymphadenopathy. Mild linear soft tissue thickening at lymphadenectomy sites. No external iliac or common iliac lymphadenopathy. Bones/Soft Tissues: Degenerative changes. Punctate sclerotic focus in L5 unchanged bone island. Also a 7 cm simple renal cyst on the RIGHT PSA 06/17/21 3.58, being followed by Dr. Hernandez PAST MEDICAL HISTORY Diagnosis Date ED (erectile dysfunction) of organic origin Hearing loss Hypercholesteremia Hypogonadism in male Penile cancer (HCC) PAST SURGICAL HISTORY Procedure Laterality Date BIOPSY, PENIS COLONOSCOPY multiple TONSILLECTOMY AND ADENOIDECTOMY HX Social History Tobacco Use Smoking status: Former Smoker Packs/day: 1.00 Years: 10.00 Pack years: 10.00 Types: Cigarettes Quit date: 1989 Years since quittin.3 Smokeless tobacco: Never Used Substance Use Topics Alcohol use: Not Currently Drug use: Never Current Outpatient Medications on File Prior to Visit Medication Sig iron,carb/vit C/vit B12/folic (IRON 100 PLUS ORAL) Take by mouth. sulfamethoxazole-trimethoprim (BACTRIM DS) 800-160 mg per tablet Take 1 tablet by mouth twice daily. Comp.Stocking,Thigh,Reg,Medium misc 1 Each once daily. acetaminophen (TYLENOL) 325 mg tablet Take 2 tablets by mouth every 6 hours. (Patient not taking: Reported on 08/07/2021 ) ibuprofen (MOTRIN) 200 mg tablet Take 1-2 tablets by mouth every 4 hours as needed for Pain. cholecalciferol (VITAMIN D3) 5,000 unit tab at bedtime as needed. multivit-min/FA/lycopen/lutein (CENTRUM SILVER MEN ORAL) Take by mouth once daily. MEDICATION, NON-DATABASE Nureva - brain supplement Comp.Stocking,Thigh,Long,Large misc 1 Each DAILY (6 AM). Bilateral thigh high claude hose. rosuvastatin calcium (CRESTOR ORAL) Take 5 mg by mouth once daily. No current facility-administered medications on file prior to visit. ROS: Constitutional: intentional weight loss recently Gastrointestinal: negative PHYSICAL EXAM: There were no vitals taken for this visit. GENERAL: Wnl nutrition, no deformities, healthy appearing ABDOMEN: Soft, nontender, nondistended, no masses. GENITOURINARY: MALE EXAM: the groins without LAD, scars well healed, PU widely patent Min LE edema below knees B DATA/OR LABS TO BE REVIEWED: (Simple=1 data point; Complex= 2 or more) PSA (ng/mL) Date Value 06/17/2021 3.58 Creatinine (mg/dL) Date Value 12/02/2021 1.07 06/17/2021 0.97 07/06/2020 0.86 07/05/2020 0.94 06/28/2020 0.96 06/28/2020 0.97 Creatinine (POCT) (mg/dL) Date Value 12/05/2020 0.90 No results found for: TESTOST A/P: penile cancer, recurrence fall 2019. See back in Fall [address] Doing well with WIL Chávez MD documented in this encounter [facility] 12-02-2021 History of Present illness Narrative Radiology Service Progress Note DATE OF SERVICE: December 02, 2021 TIME: 12:44 PM PATIENT IDENTITY VERIFICATION COMPLETED USING TWO (2) STANDARD IDENTIFIERS: Name and Date of confirmed by patient verbally. FALL SCREENING: Has the patient had 2 falls in the last year or 1 fall with injury or currently using an Ambulatory Assistive Device (Walker, Cane, Wheelchair, Crutches, etc.)? No PATIENT GENDER DATA: Male PATIENT RELEVANT IMPLANT DATA REVIEWED: Yes ALLERGIES: Reviewed and unchanged CONTRAST ALLERGY: NO. EXAM: CT -CONTRAST INDUCED NEPHROPATHY RISK FACTORS: Patient age > 60 years CREATININE: Creatinine Date Value Ref Range Status 12/02/2021 1.07 0.73 - 1.22 mg/dL Final 06/17/2021 0.97 0.73 - 1.22 mg/dL Final Creatinine (POCT) Date Value Ref Range Status 12/05/2020 0.90 0.6 - 1.3 mg/dL Final Estimated Glomerular Filtration Rate Date Value Ref Range Status 12/02/2021 75 >=60 mL/min/1.73m Final Comment: Estimated Glomerular Filtration Rate (eGFR) is calculated using the 2020 CKD-EPI creatinine equation. This equation utilizes serum creatinine, sex, and age as parameters. The creatinine assay has traceable calibration to isotope dilution-mass spectrometry. Refer to KDIGO guidelines for clinical interpretation. In patients with unstable renal function, e.g. those with acute kidney injury, the eGFR may not accurately reflect actual GFR. eGFR- Date Value Ref Range Status 06/17/2021 >60 Final P.O.C.T. RESULTS: POC done: Yes, See Lab Tab December 02, 2021 TREATMENT: N/A PERIPHERAL IV DATA: Ambulatory: A peripheral IV was started in the Left antecubital site with a Angio cath: 22 gauge. RADIOLOGY DEPARTMENT: CT; Exam(s) Completed: Abdomen/Pelvis SIGNATURE: RT Ellyn(R) PATIENT NAME: Luis Angel Dixon DATE: December 02, 2021 TIME: 12:44 PM documented in this encounter [facility] 11-26-2021 History of Present illness Narrative Wrote stat order for creatinine to be completed with CT on 12/02/2021. Shona Fry APRN.[employer]ER [employer] documented in this encounter [facility] 08-07-2021 Note HNO ID: [id number] Author: Mayra Chávez MD Service: ? Author Type: Physician Type: Progress Notes Filed: 08/07/2021 4:25 PM Note Text: HPI: Last seen 12/05/20 : 70 yo s/p penectomy and PU on 07/05/20. Prior glansectomy and then bilateral mIFLNDS in late 2019. Path: ? 5 mo ago Item Processing Clerk Specimen originated from [facility] Specimen #: [id number] Submitting Physician: MAYRA CHÁVEZ MD ? (Q10) FINAL DIAGNOSIS 1. Right corporal body mass, excision (A) - Invasive squamous cell carcinoma, basaloid-type, involving erectile tissue. 2. Penis, excision (B) - Negative for residual neoplasm. SHAWNAM/ana luisam 07/10/2020 COMMENT Margin of excision are free of neoplasm. In the excision of the mass (part A), the squamous cell carcinoma involves erectile tissue. The case is discussed with Dr. Chávez who indicates clinically that the mass represents a metastasis. ?CT 06/26/[address] evidence of metastatic disease in the pelvis. 2. Enlarged prostate. Correlate with PSA levels. PSA elevated, being followed by Mary. I forwarded his results to him in May. Occasional pains in his groin area. Fleeting Main concern is spray and flow down groin with voiding attempts. PSA (ng/mL) Date Value 06/17/2021 3.58 Here for 1 year follow up from penectomy PAST MEDICAL HISTORY Diagnosis Date - ED (erectile dysfunction) of organic origin - Hearing loss - Hypercholesteremia - Hypogonadism in male - Penile cancer (HCC) PAST SURGICAL HISTORY Procedure Laterality Date - BIOPSY, PENIS - COLONOSCOPY multiple - TONSILLECTOMY AND ADENOIDECTOMY HX Social History Tobacco Use - Smoking status: Former Smoker Packs/day: 1.00 Years: 10.00 Pack years: 10.00 Types: Cigarettes Quit date: 1989 Years since quittin.9 - Smokeless tobacco: Never Used Substance Use Topics - Alcohol use: Not Currently - Drug use: Never Current Outpatient Medications on File Prior to Visit Medication Sig - iron,carb/vit C/vit B12/folic (IRON 100 PLUS ORAL) Take by mouth. - sulfamethoxazole-trimethoprim (BACTRIM DS) 800-160 mg per tablet Take 1 tablet by mouth twice daily. - Comp.Stocking,Thigh,Reg,Medium misc 1 Each once daily. - acetaminophen (TYLENOL) 325 mg tablet Take 2 tablets by mouth every 6 hours. (Patient not taking: Reported on 12/05/2020 ) - ibuprofen (MOTRIN) 200 mg tablet Take 1-2 tablets by mouth every 4 hours as needed for Pain. (Patient not taking: Reported on 12/05/2020 ) - cholecalciferol (VITAMIN D3) 5,000 unit tab at bedtime as needed. - multivit-min/FA/lycopen/lutein (CENTRUM SILVER MEN ORAL) Take by mouth once daily. - MEDICATION, NON-DATABASE Nureva - brain supplement - metFORMIN (GLUCOPHAGE) 500 mg tablet Take 500 mg by mouth twice daily. - Comp.Stocking,Thigh,Long,Large misc 1 Each DAILY (6 AM). Bilateral thigh high claude hose. - rosuvastatin calcium (CRESTOR ORAL) Take 5 mg by mouth once daily. No current facility-administered medications on file prior to visit. ROS: Constitutional: negative, no weight loss Gastrointestinal: working fine PHYSICAL EXAM: There were no vitals taken for this visit. GENERAL: Wnl nutrition, no deformities, healthy appearing ABDOMEN: Soft, nontender, nondistended, no masses. GENITOURINARY: MALE EXAM: the PU is wide open, no obstrux. No apprec LN in the groin B DATA/OR LABS TO BE REVIEWED: (Simple=1 data point; Complex= 2 or more) PSA (ng/mL) Date Value 06/17/2021 3.58 Creatinine (mg/dL) Date Value 06/17/2021 0.97 07/06/2020 0.86 07/05/2020 0.94 06/28/2020 0.96 06/28/2020 0.97 Creatinine (POCT) (mg/dL) Date Value 12/05/2020 0.90 No results found for: TESTOST A/P: penile cancer WIL- CT 6 months, ordered Advised on techniques to prevent likert flow w urination. He will work on it. See in November Mayra Chávez MD [facility] Evaluation note Diagnosis Malignant neoplasm of penis (HCC)- Primary Malignant neoplasm of penis, part unspecified [facility] Malignant neoplasm of penis (HCC) Malignant neoplasm of penis, part unspecified [facility] Diagnosis Malignant neoplasm of male genital organ (HCC) Malignant neoplasm of male genital organ, site unspecified [facility] Diagnosis Toe pain, left- Primary [facility] in [facility] Toe pain, left Pain in limb [facility] Pre-operative examination- Primary Preoperative examination, unspecified Penile cancer (HCC) Malignant neoplasm of penis, part unspecified Mixed hyperlipidemia Obstructive sleep apnea syndrome Obstructive sleep apnea (adult) (pediatric) Prediabetes Other abnormal glucose Benign prostatic hyperplasia, unspecified whether lower urinary tract symptoms present Class 1 obesity due to excess calories with serious comorbidity and body mass index (BMI) of 30.0 to 30.9 in adult Preoperative examination- Primary Preoperative examination, unspecified Penile cancer (HCC) Malignant neoplasm of penis, part unspecified Type 2 diabetes mellitus without complication, without long-term current use of insulin (HCC) Obstructive sleep apnea syndrome Obstructive sleep apnea (adult) (pediatric) Mixed hyperlipidemia Former smoker, stopped smoking many years ago Personal history of tobacco use, presenting hazards to health Acute pain of right knee- Primary Acute pain of right [facility] Diagnosis Pre-operative examination- Primary Preoperative examination, unspecified Penile cancer (HCC) Malignant neoplasm of penis, part unspecified Mixed hyperlipidemia Obstructive sleep apnea syndrome Obstructive sleep apnea (adult) (pediatric) Prediabetes Other abnormal glucose Benign prostatic hyperplasia, unspecified whether lower urinary tract symptoms present Class 1 obesity due to excess calories with serious comorbidity and body mass index (BMI) of 30.0 to 30.9 in adult Preoperative examination- Primary Preoperative examination, unspecified Penile cancer (HCC) Malignant neoplasm of penis, part unspecified Type 2 diabetes mellitus without complication, without long-term current use of insulin (HCC) Obstructive sleep apnea syndrome Obstructive sleep apnea (adult) (pediatric) Mixed hyperlipidemia Former smoker, stopped smoking many years ago Personal history of tobacco use, presenting hazards to health Acute pain of right knee documented in this encounter [facility] for referral (narrative)* Diagnostic Procedure Only (Urgent) - Closed Specialty Diagnoses / Procedures Referred By Sudheer t Referred To Contact XR IMAGING Diagnoses Toe pain, left Procedures XR TOE AP/LAT/OBL LEFT RADEX TOE MINIMUM 2 VIEWS Mita Muñiz PA-C [address] [place] [address] Xr Imaging Referral ID Status Reason Start Date Expiration Date V isits Requested Visits Authorized [id number] Closed Auto-Generate d Referral 01/23/2023 02/22/[address] [facility] for referral (narrative)* Diagnostic Procedure Only (Urgent) - Closed Specialty Diagnoses / Procedures Referred By Contac t Referred To Contact XR IMAGING Diagnoses Toe pain, left Procedures XR TOE AP/LAT/OBL LEFT RADEX TOE MINIMUM 2 VIEWS Mita Muñiz PA-C [address] [place] [address] Xr Imaging Referral ID Status Reason Start Date Expiration Date V isits Requested Visits Authorized [id number] Closed Auto-Generate d Referral 01/23/2023 02/22/[address] [facility] for referral (narrative)* Diagnostic Procedure Only (Urgent) - Closed Specialty Diagnoses / Procedures Referred By Contac t Referred To Contact XR IMAGING Diagnoses Acute pain of right knee Procedures XR KNEE GENERAL 4V AP BOTH/PA BOTH/LAT/MERC RIGHT RADIOLOGIC EXAM KNEE COMPLETE 4/MORE VIEWS Marguerite Sullivan PA [address] [place] [address] Xr Imaging [facility] Referral ID Status Reason Start Date Expiration Date V isits Requested Visits Authorized [id number] Closed Auto-Generate d Referral 05/09/2024 06/08/[address] [facility] for visit Narrative* Diagnostic Procedure Only (Urgent) - Closed Specialty Diagnoses / Procedures Referred By Contac t Referred To Contact XR IMAGING Diagnoses Toe pain, left Procedures XR TOE AP/LAT/OBL LEFT RADEX TOE MINIMUM 2 VIEWS Mita Muñiz PA-C [address] [place] [address] Xr Imaging Referral ID Status Reason Start Date Expiration Date V isits Requested Visits Authorized [id number] Closed Auto-Generate d Referral 01/23/2023 02/22/[address] [facility] for visit Narrative* Diagnostic Procedure Only (Urgent) - Closed Specialty Diagnoses / Procedures Referred By Contac t Referred To Contact XR IMAGING Diagnoses Acute pain of right knee Procedures XR KNEE GENERAL 4V AP BOTH/PA BOTH/LAT/MERC RIGHT RADIOLOGIC EXAM KNEE COMPLETE 4/MORE VIEWS Marguerite Sullivan PA [address] [place] [address] [place] [address] Referral ID Status Reason Start Date Expiration Date V isits Requested Visits Authorized [id number] Closed Auto-Generate d Referral 05/09/2024 06/08/2025 1 1 [facility] Summary Purpose Family History No Family History Records FoundNo Family History Records FoundNo Family History Records FoundNo Family History Records FoundNo Family History Records Found Advance Directives No Advanced Directives Records FoundDocuments on File Type Date 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 Advance Directive(s) 06/27/2020 11:25 AM Advance Directive(s) 08/03/2019 7:54 AM Advance Directive(s) 07/25/2019 8:36 AM Advance Directive(s) 07/04/2019 11:07 AM Documents on File Type Date Recorded 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 Advance Directive(s) 06/27/2020 11:25 AM Advance Directive(s) 08/03/2019 7:54 AM Advance Directive(s) 07/25/2019 8:36 AM Advance Directive(s) 07/04/2019 11:07 AM Reason for Referral Specialty Diagnoses / Procedures Referred By Contac t Referred To Contact CT IMAGING Diagnoses Malignant neoplasm of penis (HCC) Procedures CT ABD/PEL W IVCON CT ABD & PELVIS W/CONTRAST Mayra Chávez MD [id number] Imaging Referral ID Status Reason Start Date Expiration Date V isits Requested Visits Authorized [id number] Closed Auto-Generate d Referral 08/07/2021 09/06/2022 1 1 Specialty Diagnoses / Procedures Referred By Contac t Referred To Contact Orthopedics Diagnoses Acute pain of right knee Procedures CONSULT TO ORTHOPAEDICS OFFICE/OUTPATIENT NEW HIGH MDM 60 MINUTES Marguerite Sullivan PA [address] [place] [address] Referral ID Status Reason Start Date Expiration Date Visits Requested Visits Authorized [id number] Authorized PCP Requested Referral 05/09/2024 05/09/2025 1 1 Specialty Diagnoses / Procedures Referred By Contac t Referred To Contact XR IMAGING Diagnoses Acute pain of right knee Procedures XR KNEE GENERAL 4V AP BOTH/PA BOTH/LAT/MERC RIGHT RADIOLOGIC EXAM KNEE COMPLETE 4/MORE VIEWS Marguerite Sullivan PA [address] [place] [address] [place] [address] Referral ID Status Reason Start Date Expiration Date V isits Requested Visits Authorized [id number] Closed Auto-Generate d Referral 05/09/2024 06/08/2025 1 1 Additional Source Comments (unrecognized sect ion and content) No Status Records FoundNo Status Records FoundNo Status Records FoundNo Status Records FoundNo Status Records Found INFORMATION SOURCE (unrecogn ized section and content) DATE CREATED AUTHOR 02/23/2018 [employer] DATE CREATED AUTHOR AUTHOR'S ORGANIZ ATION 12/06/2020 [facility] DATE CREATED AUTHOR AUTHOR'S ORGANIZ ATION 12/12/2021 [facility] DATE CREATED AUTHOR AUTHOR'S ORGANIZ ATION 03/18/2024 [employer] ([place]) DATE CREATED AUTHOR AUTHOR'S ORGANIZ ATION 05/11/2024 [facility] Source Comments (unrecognize d section and content) In the event this informatio n is protected by the Federal Confidentiality of Alcohol and Drug Abuse Patient Records regulations: The Federal rules restrict any use of the information to criminally investigate or prosecute any alcohol or drug abuse patient.[facility] the event this information is protected by the Federal Confidentiality of Alcohol and Drug Abuse Patient Records regulations: The Federal rules restrict any use of the information to criminally investigate or prosecute any alcohol or drug abuse patient.[facility] the event this information is protected by the Federal Confidentiality of Alcohol and Drug Abuse Patient Records regulations: The Federal rules restrict any use of the information to criminally investigate or prosecute any alcohol or drug abuse patient.[facility] the event this information is protected by the Federal Confidentiality of Alcohol and Drug Abuse Patient Records regulations: The Federal rules restrict any use of the information to criminally investigate or prosecute any alcohol or drug abuse patient.[facility] the event this information is protected by the Federal Confidentiality of Alcohol and Drug Abuse Patient Records regulations: The Federal rules restrict any use of the information to criminally investigate or prosecute any alcohol or drug abuse patient.[facility] the event this information is protected by the Federal Confidentiality of Alcohol and Drug Abuse Patient Records regulations: The Federal rules restrict any use of the information to criminally investigate or prosecute any alcohol or drug abuse patient.[facility] the event this information is protected by the [facility] Confidentiality of Alcohol and Drug Abuse Patient Records regulations: The Federal rules restrict any use of the information to criminally investigate or prosecute any alcohol or drug abuse patient.[facility] the event this information is protected by the Federal Confidentiality of Alcohol and Drug Abuse Patient Records regulations: The Federal rules restrict any use of the information to criminally investigate or prosecute any alcohol or drug abuse patient.[facility] Care Teams (unrecognized sec tion and content) Lead Advisor Relationship Specialty Start Date End Date Umair Scales MD [address] [place] [address] PCP - General Internal Medicine 06/23/19 Vince Hernandez [address] [place] [address] [phone] Urology 06/08/19 Lead Advisor Relationship Specialty Start Date End Date Umair Scales MD [address] [place], [place] [id number] PCP - General Internal Medicine 06/23/19 Vince Hernandez [address] [address] [place] [phone] Urology 06/08/19 Lead Advisor Relationship Specialty Start Date End Date Umair Scales MD [address] [address] PCP - General Internal Medicine 06/23/19 Vince Hernandez [address] [address] [place] [phone] Urology 06/08/19 Lead Advisor Relationship Specialty Start Date End Date Umair Scales MD [address] [place] [address] PCP - General Internal Medicine 06/23/19 Vince Hernandez MD [address] [address] [place] [address] Urology 06/08/19 Lead Advisor Relationship Specialty Start Date End Date Umair Scales MD [address] [address] PCP - General Internal Medicine 06/23/19 Vince Hernandez MD [address] [address] [place] [address] Urology 06/08/19 Lead Advisor Relationship Specialty Start Date End Date Umair Scales MD [address] [address] PCP - General Internal Medicine 06/23/19 Vince Hernandez MD [address] [address] [place] [address] Urology 06/08/19 Lead Advisor Relationship Specialty Start Date End Date Umair Scales MD [address] [place], [place] [id number] PCP - General Internal Medicine 06/23/19 Vince Hernandez MD [address] [facility] [address] [id number] Urology 06/08/19 Reason for Visit (unrecogniz ed section and content) Reason Comments Radiology CT Specialty Diagnoses / Procedures Referred By Contac t Referred To Contact CT IMAGING Diagnoses Malignant neoplasm of penis (HCC) Procedures CT ABD/PEL W IVCON CT ABD & PELVIS W/CONTRAST Mayra Chávez MD [address] [facility] [address] [place] [address] [id number] Imaging Referral ID Status Reason Start Date Expiration Date V isits Requested Visits Authorized [id number] Closed Auto-Generate d Referral 08/07/2021 09/06/2022 1 1 Specialty Diagnoses / Procedures Referred By Contac t Referred To Contact Urology / UROLOGY Diagnoses f/u up with ct prior Procedures EST UROL Umair Scales MD [address] [place] [address] Mayra Chávez MD [address] [place] [address] Referral ID Status Reason Start Date Expiration Date V isits Requested Visits Authorized [id number] Outside PCP 12/11/2021 03/11/2022 1 1 Reason Comments Toe Pain (Big) left x 1 day denies injury Reason Comments Results Reason Comments Knee Pain right x 1 week, step ped off curb wrong FOR RECORDS PERTAINING TO PATIENTS WHO ARE OR HAVE BEEN ENROLLED IN A CHEMICAL DEPENDENCY/SUBSTANCEABUSE PROGRAM, SOME INFORMATION MAY BE OMITTED. This clinical summary was aggregated from multiple sources. Caution should be exercised in using it in the provision of clinical care. This summary normalizes information from multiple sources, and as a consequence, information in this document may materially change the coding, format and clinical context of patient data. In addition, data may be omitted in some cases. CLINICAL DECISIONS SHOULD BE BASED ON THE PRIMARY CLINICAL RECORDS. [facility]. provides no warranty or guarantee of the accuracy or completeness of information in this document.
[2024-06-22 11:59] LABS: Absolute Lymphocyte Count 2.19 X10^3/uL (0.83-4.51); Absolute Neutrophil Count 6.7 X10^3/uL (2.0-7.7); Basophil# 0.05 X10^3/uL; Basophil% 0.5 % (0-1); Eosinophil# 0.15 X10^3/uL; Eosinophils% 1.5 % (0-5); Hematocrit 41.9 % (40-54); Hemoglobin 13.7 g/dL (13.0-16.5); Lymphocyte # 2.19 X10^3/ul (0.83-4.51); Lymphocyte % 22.1 % (19-41); Mean Corp Hgb Conc 32.7 g/dL (32-36); Mean Corpuscular Hgb 29.4 pg (27.0-32.0); Mean Corpuscular Volume 89.9 fL (80-94); Mean Platelet Vol. 9.6 fl (6.2-12.0); Monocyte% 8.1 % (0-10); NRBC Flagged by Analyzer 0 % (0-5); Neutrophil # 6.71 X10^3/uL (2.7-7.7); Neutrophil % 67.5 % (47-70); Platelet Count 268 K/mm3 (150-450); RBC Distribution Width CV 13.5 % (11.6-14.6); RBC Distribution Width SD 43.8 fl (35.1-43.9); Red Blood Count 4.66 M/mm3 (4.6-6.2); White Blood Count 9.9 K/mm3 (4.4-11.0)
[2024-06-22 12:29] LABS: ALB/GLOB Ratio 0.9 RATIO (0.9-2.4); AST(SGOT) 19 U/L (15-37); Alanine Aminotransfer ALT/SGPT 26 U/L (16-61); Albumin, Serum 3.7 g/dL (3.2-5.0); Alkaline Phosphatase 78 U/L (45-117); Anion Gap 7 (5-15); BUN 22 mg/dL (7-18); Calcium,Total 9.1 mg/dL (8.5-10.1); Chloride 107 mmol/L (98-107); Cholesterol 172 mg/dL (200); EST Glomerular Filtration Rate 70 mL/min (>60); Est Glom Filt Rate - Afr Amer 84 mL/min (>60); Globulin 4.2 g/dL (2.2-4.2); Glucose 110 mg/dL (74-106); High Density Lipoprotein 85 mg/dL; Potassium 3.8 mmol/L (3.5-5.1); Protein, Total 7.9 g/dL (6.4-8.2); Sodium Level 138 mmol/L (136-145); Triglycerides 120 mg/dL; Very Low Density Lipoprotein 24 mg/dL (5-40)
== END | disposition home or self-care (01) ==
PROVIDERS: PCP Internal Medicine; Referring Provider Internal Medicine; Visit Provider Internal Medicine
DX: E11.9 Type 2 diabetes mellitus without complications (principal)
CPT/HCPCS: 36415; 80053; 80061; 85025

== ENCOUNTER → 2024-10-02 | Outpatient (CLI) | payer MEDICARE, SELFPAY ==
--- NOTE | 2024-10-02 09:30 | MRI_ITS ---
PROCEDURE: MRI right knee without IV contrast REASON FOR EXAM: Pain TECHNIQUE: Multisequence multiplanar MR images of the right knee were obtained without the administration of intravenous contrast. COMPARISON: 05/22/2024 radiographs FINDINGS Large horizontal tear of the body of the lateral meniscus extending into the anterior and posterior horns. Moderate associated lateral meniscal extrusion. Free edge tearing of the body of the medial meniscus. Suspected free edge fraying of the posterior horn of the medial meniscus also noted. Intact anterior horn. Intact anterior and posterior cruciate ligaments. Intact quadriceps and patellar tendons. Intact medial collateral ligament. Intact lateral collateral ligamentous complex. Tiny split tear of the distal semimembranosus tendon just proximal to its insertion. Pes tendons appear intact. Full-thickness chondral defect along the trochlear groove measuring 5 x 7 mm. Moderate diffuse chondral thinning throughout the lateral compartment with several areas of mild fibrillation. Moderate diffuse chondral thinning along the middle third of the medial femoral condyle without a focal full-thickness defect. Moderate joint effusion with mild synovitis. Negative for acute fracture or marrow replacement. Mild degenerative marrow edema along the peripheral aspect of the lateral tibial plateau. Small tricompartmental marginal osteophytes. Mild superior patellar enthesopathy. Small Pfeiffer's cyst. Mild anterior subcutaneous edema. MRI/Lower Ext Joint Only (Routine) IMPRESSION: 1. Large horizontal tear of the entire lateral meniscus with extrusion. 2. Free edge tearing of the medial meniscal body and likely the posterior horn. 3. Mild/moderate tricompartmental osteoarthritis as above. 4. Tiny split tear of the distal semimembranosus tendon. 5. Small Pfeiffer's cyst. Reading Location: [facility]
== END | disposition home or self-care (01) ==
LOC: MRI 09:07
PROVIDERS: PCP Internal Medicine; Referring Provider Orthopaedic Surgery; Visit Provider Orthopaedic Surgery
DX: M25.561 Pain in right knee (principal)
CPT/HCPCS: 73721

== ENCOUNTER → 2024-10-16 | Outpatient (CLI) | payer MEDICARE, SELFPAY ==
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
== END | disposition home or self-care (01) ==
LOC: RAD 12:41
PROVIDERS: PCP Internal Medicine; Referring Provider Internal Medicine; Visit Provider Internal Medicine
DX: R09.A2 Foreign body sensation, throat (principal)
CPT/HCPCS: 74230; 92611

== ENCOUNTER 2024-10-31 05:54 | Day surgery (SDC) | payer MEDICARE, SELFPAY ==
[2024-10-31] VITALS (8 sets, daily range): BP systolic 115–133; BP diastolic 63–80; PULSE 57–68; RESP 16–18; TEMP 36.1–36.3; O2SAT 94–100; BMI 31.3
[2024-10-31] MEDS: 0.9% Normal Saline (1000mL) 1,000 ML 15 ML IV (06:33)
--- NOTE | 2024-10-31 06:53 | PRE.ANES_ITS ---
ASA Classification* ASA Classification ASA Classification: 2 Assessment & Plan Anesthesia* Anesthesia Assessment Anesthesia Assessment: Discussed sedation and/or anesthesia options, risks, benefits, and alternatives with patient/parents/legal guardian/POA. Questions invited. The patient/parents/legal guardian/POA seems to understand and agrees to proceed with anesthesia plan. Reviewed the physical assessment, medical history, allergy history and patient home medications list prior to surgery/procedure/anesthetic and documented any changes. Performed airway and anesthesia risk assessments. Anesthesia Type Anesthesia Type: General History Source History Obtained from:: Patient and Chart Anesthesia Focused Assessment* Temperature: 97.3 F Pulse Rate: 60 Blood Pressure: 115/80 Respiratory Rate: 16 Pulse Ox: 98 Oxygen Delivery Method: Room Air Airway Assessment Mouth opens: >3 cm Mallampati Score: III Teeth Condition: Missing (Missing left upper molar. Rest are tight.) Neck Range of motion (ROM): Full ROM Focused Labs Anesthesia Preop lab: CBC WBC 9.9 K/mm3 (4.4-11.0) 06/22/24 09:06/22/24 RBC 4.66 M/mm3 (4.6-6.2) 06/22/24 09:31 06/22/24 Hgb 13.7 g/dL (13.0-16.5) 06/22/24 09:06/22/24 Hct 41.9 % (40-54) 06/22/24 09:31 06/22/24 Plt Count 268 K/mm3 (150-450) 06/22/24 09:31 06/22/24 CHEMISTRY Potassium 3.8 mmol/L (3.5-5.1) 06/22/24 09:31 06/22/24 Sodium 138 mmol/L (136-145) 06/22/24 09:31 06/22/24 BUN 22 mg/dL (7-18) H 06/22/24 09:06/22/24 Creatinine 1.10 mg/dL (0.70-1.30) 06/22/24 09:31 06/22/24 Glucose 110 mg/dL (74-106) H 06/22/24 09:31 06/22/24 POC Glucose 137 mg/dL (74-106) H 05/28/22 13:02 05/28/22 TSH 2.57 uIU/mL (0.358-3.74) 04/23/23 14:01 COAG Pre-Assessment Diagnosis/Proposed Procedure Planned Operative Procedure(s): RIGHT KNEE ARTHROSCOPY PARTIAL MEDIAL PARTIAL LATERAL MENISECTOMY Anesthesia History Anesthesia History - medical coding auditor: Anesthesia History - medical coding auditor Hx Hospitalization No 10/17/24 14:20 Any Problems With Anesthesia No 10/17/24 14:20 Cholinesterase deficiency No 10/17/24 14:20 You/Your Family Experience No 10/17/24 14:20 fever (hyperthermia) with Relationship Recent Exposure to Contagious No 10/31/24 06:24 Disease Does patient have nerve No 10/17/24 14:20 stimulator Patient instructed to have device shut off --Does patient have Pacemaker No 10/31/24 06:24 or ICD? When Was Last Pacemaker Check QUESTION #4 FULL TEXT: You/Your Family Experience fever (hyperthermia) with Anesthesia Last Oral Intake Last Oral intake: Last Oral Intake NPO since 20:00 10/31/24 06:24 Meds taken in AM with sips of water? Meds patient instructed to take am of surgery PONV PONV - medical coding auditor: PONV - medical coding auditor Female No 10/17/24 14:20 HX of Motion Sickness Yes 10/17/24 14:20 HX of N/V After Surgery No 10/17/24 14:20 Non-Smoker Yes 10/17/24 14:20 Duration of Surgery greater Yes 10/17/24 14:20 than 60 minutes Number of Risk Factors 3 10/17/24 14:20 PONV Score Moderate Risk 10/17/24 14:20 Height & Weight Height & Weight: Anesthesia: Height & Weight Height 5 ft 7 in 10/31/24 06:24 Weight: 90.718 kg 10/31/24 06:24 Body Mass Index (BMI) 31.3 10/31/24 06:24 Respiratory Assessment Respiratory Assessment - medical coding auditor: Respiratory Tract Infection Hx - medical coding auditor Hx Respiratory Tract Infection No 10/17/24 14:20 STOP Sleep Apnea STOP Sleep Apnea - medical coding auditor: STOP Sleep Apnea - medical coding auditor Hx Hypertension No 10/17/24 14:20 Hx Sleep Apnea Yes 10/17/24 14:20 CPAP Yes 10/17/24 14:20 BIPAP No 10/17/24 14:20 Do you snore loudly (louder than talking or can be heard Do you often feel tired/ fatigued/ sleepy during daytime? Has anyone observed you stop breathing during sleep? STOP Results Positive 10/17/24 14:20 QUESTION #5 FULL TEXT : Do you snore loudly (louder than talking or can be heard through closed doors)? 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 Specify any problems Hx of Preganancy in last 3 N/A 10/17/24 14:20 Months Nurse Filling Out Transfusion DSCHRIBER 10/17/24 14:20 & Questions: Date: 10/17/24 10/17/24 14:20 Time: 14:21 10/17/24 14:20 Patient unable to answer at this time (ie. confused, unrespo /Reproduction History /Reproductive History - medical coding auditor: /Reproductive Hx- medical coding auditor Hx Now No 10/17/24 14:20 Gestational Age (in weeks): EDC: Hx Hx Para Hx Section SAB No 10/17/24 14:20 Active Medications Active Medications: Current Medications Generic Name Dose Route Start Last Admin Trade Name Freq PRN Reason Stop Dose Admin Cefazolin Sodium 2 gm/ N/A 20 mls @ 400 mls/hr 10/31/24 14:15 IV 10/31/24 14:17 PREOP ONE Sodium Chloride 1,000 mls @ 15 mls/hr 10/31/24 06:05 10/31/24 06:33 IV 11/05/24 19:24 15 mls/hr .Q48H SILVESTRE Administration Protocol [facility] Medical History Back pain Vertigo Dietary restriction Former smoker Shortness of breath on exertion History of pain when walking History of edema History of echocardiogram History of stress test Globus pharyngeus Neuropathy Wears glasses CPAP (continuous positive airway pressure) dependence Lumbar radiculopathy Kidney stone Penis cancer Type 2 diabetes mellitus Erectile dysfunction BPH (benign prostatic hyperplasia) Chronic headaches Hyperlipidemia Diverticular disease of colon Home Medications ?Medication ?Instructions ?Recorded ?Last Taken ?Type cholecalciferol (vitamin D3) 50 5,000 unit PO DAILY 05/27/22 History mcg (2,000 unit) tablet multivitamin 1 ea PO DAILY 06/06/1605/27 History blood-glucose meter (FreeStyle #1 ea 01/31/20 Unknown Rx Lite Meter kit) ferrous sulfate 325 mg (65 mg 325 mg PO QODAY 09/30/20 05/27/22 History iron) tablet (FerrouSul) coffee extract 50 mg-phosphatidyl 1 tab PO DAILY 01/2805/27/22 History serine 50 mg chewable tablet (Neuriva Original) tamsulosin 0.4 mg capsule 0.4 mg PO QHS 06/11/2110/30 History mecobalamin (vitamin B12) 1 tab PO TUTHSA 07/15/23 Unk nown History rosuvastatin 5 mg tablet 5 mg PO DAILY #90 tabs 02/27 Unknown Rx lancets (Accu-Chek Softclix #200 ea 05/18/24 Unknown R x Lancets) blood sugar diagnostic (Accu-Chek #100 ea 05/19/24 Unk nown Rx Guide test strips) metformin 850 mg tablet 850 mg PO BID #180 tabs 05/01 11/20 Unknown Rx meclizine 25 mg tablet 25 mg PO BID PRN dizziness # 20 tabs 10/19/24 Unknown Rx Allergy/AdvReac Type Severity Reaction Status Date / Time ondansetron (From Zofran) AdvReac Severe dizziness, Verified 03/04/25 06:21 headache Family History Brother Hypertension Cancer Sister Cancer Mother Cancer Surgical History History of right inguinal hernia repair Hx of colonoscopy penisectomy History of lymph node biopsy History of tonsillectomy Social History Smoking Status: Former smoker how long ago did patient quit smokin, 1pk/day second hand exposure: Yes alcohol intake: never substance use type: does not use caffeine: Yes Type: coffee frequency: 3-4 times per week Review of Systems (Anesthesia) ROS Narrative System reviewed and no additional complaints, except as documented.
[2024-10-31] MEDS: MethylPREDNISolone Acetate 40 MG/ML Vial (06:58)
[2024-10-31] MEDS: Bupiv/Epi 0.5% Mpf 30 ML Vial INFILT (07:15)
[2024-10-31 07:29] LABS: Bedside Glucose 112 mg/dL (74-106)
[2024-10-31] MEDS: Cefazolin 2 GM in Syringe IV (07:30)
--- NOTE | 2024-10-31 07:34 | PCM.HP.BLA ---
History and Physical Date of Admission: 10/31/24 [facility] [address] [place] [address] OFFICE VISIT Date of Service: 10/09/24 MR#: [id number] Acct: [id number] Name: JACKELYN LOPEZ Sr. Rep #: [id number] : 1950 Provider: Dr. Navi Shaw DO Age/Sex: 74/M Location: [facility] [place] Status: Signed Intake Vital Signs 09/20/2513:36 10/05/2507:20 Height 5 ft 7 in 5 ft 7 in Weight: 200 lb 200 lb BMI 31.3 31.3 BP 112/78 145/78 H Blood Pressure Location Lt brachial Lt brachial Position Sitting Sitting Respiration 16 18 Pulse 62 71 Pulse Source Monitor Monitor Temp 98.6 F 97.5 F L Temp Source Temporal Pulse Oximetry (%) 94 94 Oxygen Delivery Method room air room air Intake Visit Reasons: RIGHT KNEE Chief Complaint: MRI review right knee Is patient in pain?: Yes (right knee) Pain scale (1-10): 5 Allergies ondansetron (From Zofran) Adverse Reaction (Severe, Verified 10/09/24 10:40) dizziness, headache Medications ?Medication ?Instructions ?Recorded ?Confirmed ?Type cholecalciferol (vitamin D3) 50 5,000 unit PO DAILY 10/26/13 10/09/24 History mcg (2,000 unit) tablet multivitamin 1 ea PO DAILY 06/06/16 10/09/24 History blood-glucose meter (FreeStyle #1 ea 01/31/20 10/05/24 Rx Lite Meter kit) ferrous sulfate 325 mg (65 mg 325 mg PO QODAY 09/30/20 10/09/24 History iron) tablet (FerrouSul) coffee extract 50 mg-phosphatidyl 1 tab PO DAILY 01/28/21 10/09/24 History serine 50 mg chewable tablet (Neuriva Original) tamsulosin 0.4 mg capsule 0.4 mg PO DAILY 06/11/21 10/09/24 History mecobalamin (vitamin B12) 1 tab PO TUTHSA 07/15/23 10/09/24 History rosuvastatin 5 mg tablet 5 mg PO DAILY #90 tabs 02/28/24 10/09/24 Rx lancets (Accu-Chek Softclix #200 ea 05/18/24 10/05/24 Rx Lancets) blood sugar diagnostic (Accu-Chek #100 ea 05/19/24 10/05/24 Rx Guide test strips) metformin 850 mg tablet 850 mg PO BID #180 tabs 05/22/24 10/09/24 Rx Have you fallen in the past year?: No PFSH Medical History Globus pharyngeus Impacted cerumen, right ear Bilateral carpal tunnel syndrome Neuropathy Bilateral shoulder pain Toenail fungus Bilateral foot pain Wears glasses CPAP (continuous positive airway pressure) dependence Sleep apnea Right inguinal hernia Elevated blood pressure reading Abdominal pain Numbness and tingling in both hands Vertigo Lumbar radiculopathy Trigger finger of right hand Kidney stone Penis cancer Type 2 diabetes mellitus History of malignant neoplasm of penis Diarrhea POLLO (obstructive sleep apnea) Erectile dysfunction BPH (benign prostatic hyperplasia) Hearing loss Chronic headaches Hyperlipidemia Diverticular disease of colon Surgical History History of right inguinal hernia repair Hx of colonoscopy penisectomy History of lymph node biopsy History of tonsillectomy Family History Brother Hypertension CancerSister CancerMother Cancer Social History Smoking Status: Former smoker how long ago did patient quit smokin, 1pk/day second hand exposure: Yes alcohol intake: never substance use type: does not use caffeine: Yes Type: coffee frequency: 3-4 times per week HPI RIGHT KNEE Details: This documentation accurately reflects the service provided and the decisions made by me, Dr. Navi Shaw, DO 10/09/24 0758. Part of today?s visit was documented by Dina South LPN, acting as scribe. JACKELYN LOPEZ is a 74 year old M here today for right knee MRI review. He complains of ongoing right knee pain. He is still experiencing painful lateral sidedpopping when he ambulates. He would like to discuss results and next steps. 09/04/2024 visit: Here today for right knee pain. Patient was previously seen on 05/22/24 for the right knee and was given an injection. He states that the injection did give him relief but only for about 3 weeks then he started having pain again. He has been taking Advil extra strength for the pain but he states that doesn't help his pain either. He also did take the etodolac that we prescribed him which did help but only for the short amount of time the injection did. He does have lateral painful popping when he is walking on a daily basis. Plan: Patient is here today for continued right knee pain. Now with painful lateral sided mechanical symptoms, he has tried and failed injections and NSAIDs and has minimal arthrosis on imaging plain film x-ray. I spoke with patient that at this point I would like to move forward with ordering an MRI of the knee. Patient had tried conservative treatment such as over the counter knee bracing, anti-inflammatories and steroid injection. Patient wishes to proceed with an MRI. Follow up in after MRI or sooner if pain, swelling, numbness or associated symptoms, or concerns develop. All questions answered. Patient in agreement of plan. 06/12/2024: here today for a followup on his right knee pain. Patient notes that his swelling has decreased although he continues to have achiness over his lateral knee. Patient notes that the pain isnt constant but when driving his pain was there. He complains of pain into his ankle. Patient took etodolac which was helpful for the constant pain. Patient has popping and clicking which is not painful. Patient knee sleeve which irritated him too much. Patient had an injection on 05/22/24 which was 80% helpful. Patient notes that he has constant right thumb mostly over the A1 ang. Patients pain is constant. He denies any triggering since the injection. Patient is unable to bend his thumb fully and he has swelling. Patient had an injection on 03/01/24 which was helpful for his pain. He has increased pain with ADLs. plan:Spoke with the patient about the anatomy of the hand. Explained he is tender over the A1 ang and his options- A1 ang release vs repeat injection. Explained the surgery should help with the tenderness over the ang but it will not help with his MP, IP and CMC joint arthritis joint pain. Spoke with him about the surgery procedure and recovery. If he has an injection, he will need to wait 6 weeks for surgery. He would like to proceed with an injection. Spoke with him about the risks of blanching, fat atrophy and tendon rupture. Spoke with him about his knee. Patient can get an MRI to evaluate his knee as he continues to have pain after conservative treatment. Patient wants to continue to monitor his knee. He may have the injection every 3 months as needed. Patient may wear his knee sleeve when doing activities. He was not interested in a brace. He should also ice his knee after activities. 05/22/2024 office visit: Right knee pain 2 weeks. Stepped off a curb jammed his knee. [place] immediate pain worsened over the course of the day and the following days. Denies any popping at the time of injury. No prior surgery no painful popping clicking or instability. He has been swelling and has been icing. Complains of pain over the lateral anterior and posterior knee increased pain with ambulating takes Tylenol not helpful. X-rays [facility] urgent care. Has knee sleeve. No prior injections Suspect he flared up his knee when he stepped funny reviewed options steroid injection anti-inflammatory. If he continues to have pain after conservative treatment we will consider MRI. I did prescribe him etodolac and he should also continue to ice the knee We also discussed his continued A1 ang pain that he did have injected in the past which did resolve his triggering but he still has tenderness over the A1 ang of the right thumb. We did discuss repeat steroid injection 3 months after the last or A1 ang release. Ortho Exam General General: Yes no acute distress Neurologic: Yes alert and Yes oriented x3 Psychologic: Yes reasonable and appropriate Right Knee Knee ROM: Yes ROM-Extension -20 to 0 and Yes ROM-Flexion 0-140 Examination: No Med jt line tenderness, Yes Lat jt line tenderness, Yes Allison's Test, No TTP Pes Anserine and No Illiotibial band tenderness Stability: NML: Anterior Drawer, NML: Posterior Drawer, NML: Valgus 0, NML: Valgus 30, NML: Varus 0 and NML: Varus 30 Patella Translation: 1 KNEE: small joint effusion pain with lateral allison lateral pain with medial allison Left Knee Patella Translation: 1 Head: Normocephalic Atraumatic Chest: symmetrical rise, non-labored breathing, no audible wheeze Abdomen: no guarding, non-rigid Supplemental Info 10/02/2024 MRI right knee: Large horizontal tear entire lateral meniscus with extrusion. Free edge tearing body medial meniscus and likely posterior horn. Mild to moderate tricompartmental osteoarthritis. Tiny split tear of the semimembranosus tendon and small Pfeiffer's cyst 05/22/2024 x-ray right knee: No acute findings or joint effusion there is joint space narrowing medial and lateral there is small osteophyte off the posterior tibial plateau and patellofemoral joint 03/01/2024 x-ray right thumb there is degenerative change at the MP joint mild changes at the first CMC joint 01/12/2024 right index finger there is degenerative change noted of the PIP and more notably of the DIP joint 06/16/2023 EMG bilateral upper extremity :1. Electrodiagnostic findings suggestive of bilateral median mononeuropathy. This is consistent with a mild to moderate bilateral carpal tunnel syndrome. 2. No electrodiagnostic evidence is noted for cubital tunnel syndrome. 3. No electrodiagnostic evidence noted for cervical radiculopathy 05/31/2023 x-ray cervical spine: There is degenerative disc disease C3- C4, C4-5, C6-7 04/23/2023 x-ray right shoulder: moderate glenohumeral arthrosis mild AC joint arthrosis 04/23/2023 x-ray left shoulder there is mild arthrosis of the glenoid mild AC joint arthrosis Coding Level of Care Code Off vis,est,level 4 Diagnoses Complex tear of lateral meniscus of right knee as current injury, subsequent encounter S83.271D Tear current or old: current Encounter type: subsequent encounter Meniscus tear of knee type: complex Laterality: right Peripheral tear of medial meniscus of right knee as current injury, subsequent encounter S83.221D Tear current or old: current Encounter type: subsequent encounter Meniscus tear of knee type: peripheral Laterality: right Primary osteoarthritis of right knee M17.11 Osteoarthritis type: primary Assessment and Plan Assessment and Plan (1) Lateral meniscus tear: Status: Acute Qualifiers: Tear current or old: current Encounter type: subsequent encounter Meniscus tear of knee type: complex Laterality: right Qualified Code(s): S83.271D - Complex tear of lateral meniscus, current injury, right knee, subsequent encounter (2) Medial meniscus tear: Status: Acute Qualifiers: Tear current or old: current Encounter type: subsequent encounter Meniscus tear of knee type: peripheral Laterality: right Qualified Code(s): S83.221D - Peripheral tear of medial meniscus, current injury, right knee, subsequent encounter (3) Right knee DJD: Status: Acute Qualifiers: Osteoarthritis type: primary Qualified Code(s): M17.11 - Unilateral primary osteoarthritis, right knee Plan Patient is here today for MRI review of the right knee. I reviewed MRI with patient and advised hip that he does have a large tear of the lateral meniscus and some arthritis in the knee and possibly a small medial meniscus tear. The arthritis appears minimal on radiographs . I spoke with patient that since he has exhausted conservative treatment the next step would be an arthroscopy. Patient wishes to proceed with surgery. Surgery would be right knee arthroscopy partial medial, partial lateral meniscectomy. Reviewed the pre-operative plans with the patient. Risks and benefits of the procedure were fully explained, including but not limited to infection, neurovascular injury, continued pain, arthritis, stiffness, need for further surgery, re-injury, DVT, PE, general risks of anesthesia, and loss of limb or life. The patient understands all the risks and does wish to proceed with written consent. Patient shouldn't take any NSAIDs such as Ibuprofen or Aleve 7 days before surgery. He wishes to hold off surgery until October because of some upcoming family plans. Tentative surgery date October 31, 2024 Follow up at 2 weeks post-op or sooner if pain, swelling, numbness or associated symptoms, or concerns develop. All questions answered. Patient in agreement of plan. Clinical Quality Measures Falls Risk Screening/Assistive Devices Have you fallen in the past year?: No 10/09/24 1122 <Electronically signed by Navi Shaw DO> Date Navi Shaw DO I have examined the patient and the H&P has been reviewed. There are no clinical changes since date of exam.
[2024-10-31] MEDS: Bupiv/Epi 0.25% 30 ML Vial ×2 (07:50→08:08)
[2024-10-31] MEDS: Bupivacaine 0.5% PF 10 ML VIAL (08:00)
[2024-10-31] MEDS: Epinephrine (1 mg/ml) 1 MG/ML VIAL (08:08)
--- NOTE | 2024-10-31 08:22 | OP.PCM_ITS ---
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 Post-Operative Diagnosis: Same Surgery/Procedure Performed: Preop diagnosis: Right knee complex tear lateral meniscus tear radial tear body medial meniscus DJD Postoperative diagnosis: Same plus grade 3 diffuse medial compartment with areas of grade 4 grade 3 lateral femoral condyle with areas of grade 4 posteriorly small area of grade 4 in the trochlea grade 3 medial patellar facet Procedure: Right knee arthroscopic partial medial partial lateral meniscectomy Anesthesia: General Estimated blood loss: 5 mL Tourniquet time: 22 minutes 300 mmHg Complications: none Indication for procedure: 74-year-old male patient who has had ongoing mechanical knee pain of his right knee we have tried extensive conservative treatment including anti-inflammatories injections physical therapy and although he had no injury after failing conservative treatment we did get an MRI which demonstrated a large lateral meniscus tear and a small medial meniscus tear in addition to DJD. The patient did wish to proceed with an elective arthroscopic surgery to attempt to alleviate the symptoms. Risk benefits and alternatives of the procedure were reviewed including risk of bleeding infection nerve artery tissue damage need for further surgery continued pain and expected postoperative course. Procedure: The patient was met in the preoperative holding area. The operative extremity was identified by both patient and physician and family and marked. Patient was brought back to the operating room on a wheeled cart and transferred to the operating table in the supine position. Anesthesia was started. A well- padded tourniquet was placed on the operative extremity. A lower extremity leg espana was secured to the operative extremity. The contralateral extremity was well-padded and the end of the bed was flexed to 90 degrees. The patient was prepped and draped in the usual sterile fashion. A timeout was called to ensure the proper patient, procedure, and extremity were being contemplated. 0.5% Marcaine with epinephrine was injected into the planned incisional areas under the skin only. An Esmarch was used to exsanguinate the extremity and the tourniquet was inflated. An 11 blade scalpel was used to make a stab incision in the anterior lateral portal. The arthroscope was inserted into the intercondylar notch and inflow and outflow tubes were attached. Arthroscopic visualization began. The medial compartment was entered. An 18-gauge spinal needle was used to establish the placement for anterior medial portal. An 11 blade scalpel was used to make a stab incision. Blunt probe was inserted followed by a meniscal probe. Immediately there was noted to be some synovitis there was small radial tear of the body of the medial meniscus as well as areas of cartilage wear of the medial femoral condyle mostly grade 3 and some areas of grade 4. With the use of arthroscopic biting instruments and a shaver and ArthroCare wand partial medial meniscectomy was performed the ACL was found to be intact. The lateral compartment was entered there was complex tearing noted of the body and posterior horn of the lateral meniscus in addition to areas of grade III and IV chondromalacia of the lateral femoral condyle with the use of arthroscopic biting instruments and natalia and ArthroCare wand a partial lateral meniscectomy was performed. The medial and lateral gutters were inspected and were free of loose bodies. The patellofemoral joint was inspected had areas of grade III chondromalacia of the medial patellar facet and a small area of grade 4 in the center of the trochlea. There was good patellar tracking. The knee was thoroughly irrigated and drained. An intra-articular injection with 5 cc 0.5% Marcaine plain and 40 mg of Depo-Medrol was injected intra-articularly. The arthroscope was removed the portals were closed with 3-0 nylon arthroscopic stitches. Followed by Xeroform 4 x 4's ABDs web roll and an John wrap. The tourniquet was let down and the drapes were removed. All counts were correct. The patient was brought back to the PACU in stable condition. ophthalmologist retina specialist: Yes Screener Perfumer: Bobby Hernández Tasks completed by assistant professor of communication: Opening & closing Type of Anesthesia: General RN Documented Start/Stop Times: Operation Date: 10/31/24 07:30 Case Time Into Pre-Op 10/31/24 06:04 Out of Pre-Op 10/31/24 07:24 Anesthesia Start 10/31/24 07:27 Into Room 10/31/24 07:27 Procedure Start 10/31/24 07:51 Procedure End 10/31/24 08:21 Procedure Start Time: 07:51 Procedure Stop Time: 08:21 Select all DRAINS/GRAFTS/IMPLANTS that apply: None Estimated Blood Loss: 0 Specimen collected: No Description of surgery: See procedure note Surgical Findings: As above Complications Complications: No
--- NOTE | 2024-10-31 08:29 | EX.PCM.DISCH ---
Discharge Instructions Diet Discharge Diet: No restrictions Activity Weight Bearing Status: Weight bearing as tolerated Dressing / Incision Call your doctor if you observe: Shortness of breath and Chest pain Additional Dressing/Incision Instructions:: Ice and elevate next 72 hours .keep dressing on clean and dry for 48 hours then may remove begin showering daily but do not submerge in tub or pool. After shower may apply Band-Aids . Encourage knee range of motion weightbearing as tolerated, use crutches until confident in knee then may discontinue. No strenuous activity. When not ambulating keep iced and elevated next 72 hours. Do not mix pain medication with recreational drugs or alcohol only take as prescribed can be addictive and abusive, call with any questions or concerns. Follow Up Care Please Follow Up With: Navi Shaw DO When: 2 weeks Test Results: Test results from this visit will be discussed in further detail at your follow-up appointment, if applicable. Discharge Plan Admission Primary Reason for Your Visit: Right knee arthroscopy Attending Provider: Navi Shaw Primary Care Provider: Umair Scales Instructions Print Language: Uzbek Discharge Orders/Prescriptions Prescriptions: New oxycodone-acetaminophen [Percocet] 5-325 mg tablet 1 - 2 tab PO Q4H PRN (Reason: pain) 5 Days Qty: 25 0RF Continued (DME) blood-glucose meter [FreeStyle Lite Meter] Kit See Rx Instructions .ROUTE .MEDSUPPLY Qty: 1 0RF Rx Instructions: As directed, check blood glucose daily for type 2 DM ferrous sulfate [FerrouSul] 325 mg (65 mg iron) tablet 325 mg PO QODAY tamsulosin 0.4 mg capsule 0.4 mg PO QHS cholecalciferol (vitamin D3) 2,000 UNIT tablet 5,000 unit PO DAILY multivitamin 1 EACH tablet 1 ea PO DAILY Neuriva Original 50-50 mg Tablet,Chewable 1 tab PO DAILY mecobalamin (vitamin B12) [B12 Active] 1 tab PO TUTHSA rosuvastatin 5 mg tablet 5 mg PO DAILY Qty: 90 3RF Rx Instructions: TAKE 1 TABLET BY MOUTH EVERY DAY (DME) lancets [Accu-Chek Softclix Lancets] Misc See Rx Instructions .Route Qty: 200 2RF Rx Instructions: daily (DME) Accu-Chek Guide test strips Strip See Rx Instructions .Route Qty: 100 2RF Rx Instructions: daily metformin 850 mg tablet 850 mg PO BID Qty: 180 2RF meclizine 25 mg tablet 25 mg PO BID PRN (Reason: dizziness) Qty: 20 0RF Referrals / Follow Up: Umair Scales MD [Primary Care Provider] - Disposition Disposition (needs filled in before D/C Order can be placed): Home, Self Care
--- NOTE | 2024-10-31 08:29 | PCM.POST.ANE ---
Anesthesia: Postop Eval I Current Vital Signs Temperature: 97.2 F Pulse Rate: 68 Blood Pressure: 119/72 Respiratory Rate: 16 Pulse Ox: 95 Oxygen Delivery Method: Room Air Assessment Airway patent: Yes Spontaneous unlabored respirations: Yes Mental status: Awake and Calm nausea: No Vomiting: No Anesthesia Complication: No Fluid Hydration Crystalloid volume administer (ml): 800 Total IV fluid infused: 800 Progress Note Anesthesia document: Postop Eval 1 completed: Yes
--- NOTE | 2024-10-31 09:28 | POSTOPAN2_ITS ---
Anesthesia Postop Eval I Sum Postop Eval Completion status Anesthesia document: Postop Eval 1 completed: Yes Anesthesia Postop Eval I Summary Anesthesia Postop Eval I Summary: Anesthesia Postop Eval I: Assessment Summary Airway patent Yes 10/31/24 08:30 SUSTAINABLE AGRICULTURE FACULTY.GDOTT Spontaneous unlabored Yes 10/31/24 08:30 SUSTAINABLE AGRICULTURE FACULTY.GDOTT respirations Mental status Awake,Calm 10/31/24 08:30 SUSTAINABLE AGRICULTURE FACULTY.GDOTT nausea No 10/31/24 08:30 SUSTAINABLE AGRICULTURE FACULTY.GDOTT Vomiting No 10/31/24 08:30 SUSTAINABLE AGRICULTURE FACULTY.GDOTT Anesthesia Postop Eval I: Fluid Summary Crystalloid volume administer 800 10/31/24 08:30 SUSTAINABLE AGRICULTURE FACULTY.GDOTT (ml) Colloids volume administered ( ml) Blood Product volume administered (ml) Total IV fluid infused 800 10/31/24 08:30 SUSTAINABLE AGRICULTURE FACULTY.GDOTT Anesthesia Postop Eval I: Summary Notes Anesthesia Complication No 10/31/24 08:30 SUSTAINABLE AGRICULTURE FACULTY.GDOTT Anesthesia Complication Comment: Post-operative progress note Anesthesia: Postop Eval II Evaluation Mental status: Awake and Calm Pain Level: 2 nausea: No Vomiting: No
--- NOTE | 2024-10-31 09:28 | PCM.POSTANE2 ---
Anesthesia Postop Eval I Sum Postop Eval Completion status Anesthesia document: Postop Eval 1 completed: Yes Anesthesia Postop Eval I Summary Anesthesia Postop Eval I Summary: Anesthesia Postop Eval I: Assessment Summary Airway patent Yes 10/31/24 08:30 SHADOWGRAPH OPERATOR.GDOTT Spontaneous unlabored Yes 10/31/24 08:30 SHADOWGRAPH OPERATOR.GDOTT respirations Mental status Awake,Calm 10/31/24 08:30 SHADOWGRAPH OPERATOR.GDOTT nausea No 10/31/24 08:30 SHADOWGRAPH OPERATOR.GDOTT Vomiting No 10/31/24 08:30 SHADOWGRAPH OPERATOR.GDOTT Anesthesia Postop Eval I: Fluid Summary Crystalloid volume administer 800 10/31/24 08:30 SHADOWGRAPH OPERATOR.GDOTT (ml) Colloids volume administered ( ml) Blood Product volume administered (ml) Total IV fluid infused 800 10/31/24 08:30 SHADOWGRAPH OPERATOR.GDOTT Anesthesia Postop Eval I: Summary Notes Anesthesia Complication No 10/31/24 08:30 SHADOWGRAPH OPERATOR.GDOTT Anesthesia Complication Comment: Post-operative progress note Anesthesia: Postop Eval II Evaluation Mental status: Awake and Calm Pain Level: 2 nausea: No Vomiting: No
[2024-10-31] MEDS: HYDROcodone Bitartrate/Apap 5/325 Tablet PO (10:09)
== END 2024-10-31 11:15 | disposition home or self-care (01) ==
LOC: SDC 05:55 → AC 05:56
PROVIDERS: PCP Internal Medicine; Referring Provider Orthopaedic Surgery; Visit Provider Orthopaedic Surgery
PROC: (CPT 29870; principal; 2024-10-31 07:10)
DX: M17.11 Unilateral primary osteoarthritis, right knee (principal); E11.40 Type 2 diabetes mellitus with diabetic neuropathy, unspecified; Z87.891 Personal history of nicotine dependence; Z79.84 Long term (current) use of oral hypoglycemic drugs; Z99.89 Dependence on other enabling machines and devices; G47.33 Obstructive sleep apnea (adult) (pediatric); S83.271D Complex tear of lateral meniscus, current injury, right knee, subsequent encounter; S83.221D Peripheral tear of medial meniscus, current injury, right knee, subsequent encounter
CPT/HCPCS: 29880; 01400; 82962; J2405

== ENCOUNTER 2024-12-19 05:54 | Day surgery (SDC) | payer MEDICARE, SELFPAY ==
[2024-12-19] VITALS (7 sets, daily range): BP systolic 109–126; BP diastolic 70–81; PULSE 62–76; RESP 16–18; TEMP 36.2–36.5; O2SAT 92–100; BMI 30.8
[2024-12-19 06:52] LABS: Bedside Glucose 104 mg/dL (74-106)
--- NOTE | 2024-12-19 06:56 | PRE.ANES_ITS ---
ASA Classification* ASA Classification ASA Classification: 2 Assessment & Plan Anesthesia* Anesthesia Assessment Anesthesia Assessment: Discussed sedation and/or anesthesia options, risks, benefits, and alternatives with patient/parents/legal guardian/POA. Questions invited. The patient/parents/legal guardian/POA seems to understand and agrees to proceed with anesthesia plan. Reviewed the physical assessment, medical history, allergy history and patient home medications list prior to surgery/procedure/anesthetic and documented any changes. Performed airway and anesthesia risk assessments. Anesthesia Type Anesthesia Type: General History Source History Obtained from:: Patient and Chart Anesthesia Focused Assessment* Temperature: 97.7 F Pulse Rate: 62 Blood Pressure: 120/79 Respiratory Rate: 16 Pulse Ox: 97 Oxygen Delivery Method: Room Air Airway Assessment Mouth opens: >3 cm Mallampati Score: IV Teeth Condition: Missing (Missing 1 top left molar. Rest are tight.) Neck Range of motion (ROM): Limited ROM Focused Labs Anesthesia Preop lab: CBC WBC 9.9 K/mm3 (4.4-11.0) 06/22/24 09:06/22/24 RBC 4.66 M/mm3 (4.6-6.2) 06/22/24 09:31 06/22/24 Hgb 13.7 g/dL (13.0-16.5) 06/22/24 09:06/22/24 Hct 41.9 % (40-54) 06/22/24 09:31 06/22/24 Plt Count 268 K/mm3 (150-450) 06/22/24 09:31 06/22/24 CHEMISTRY Potassium 3.8 mmol/L (3.5-5.1) 06/22/24 09:31 06/22/24 Sodium 138 mmol/L (136-145) 06/22/24 09:31 06/22/24 BUN 22 mg/dL (7-18) H 06/22/24 09:31 06/22/24 Creatinine 1.10 mg/dL (0.70-1.30) 06/22/24 09:31 06/22/24 Glucose 110 mg/dL (74-106) H 06/22/24 09:31 06/22/24 POC Glucose 104 mg/dL (74-106) 12/19/24 06:30 12/19/24 TSH 2.57 uIU/mL (0.358-3.74) 04/23/23 14:01 COAG Pre-Assessment Diagnosis/Proposed Procedure Planned Operative Procedure(s): (R) Right thumb A1 ang release Anesthesia History Anesthesia History - portable track crew chief: Anesthesia History - portable track crew chief Hx Hospitalization No 12/11/24 14:32 Any Problems With Anesthesia No 12/11/24 14:32 Cholinesterase deficiency No 12/11/24 14:32 You/Your Family Experience No 12/11/24 14:32 fever (hyperthermia) with Relationship Recent Exposure to Contagious No 10/31/24 06:24 Disease Does patient have nerve No 12/11/24 14:32 stimulator Patient instructed to have device shut off --Does patient have Pacemaker No 12/19/24 06:35 or ICD? When Was Last Pacemaker Check QUESTION #4 FULL TEXT: You/Your Family Experience fever (hyperthermia) with Anesthesia Last Oral Intake Last Oral intake: Last Oral Intake NPO since 00:00 12/19/24 06:35 Meds taken in AM with sips of water? Meds patient instructed to take am of surgery PONV PONV - portable track crew chief: PONV - portable track crew chief Female No 12/11/24 14:32 HX of Motion Sickness Yes 12/11/24 14:32 HX of N/V After Surgery No 12/11/24 14:32 Non-Smoker Yes 12/11/24 14:32 Duration of Surgery greater No 12/11/24 14:32 than 60 minutes Number of Risk Factors 2 12/11/24 14:32 PONV Score Moderate Risk 12/11/24 14:32 Height & Weight Height & Weight: Anesthesia: Height & Weight Height 5 ft 8 in 12/19/24 06:35 Weight: 91.9 kg 12/19/24 06:35 Body Mass Index (BMI) 30.8 12/19/24 06:35 Respiratory Assessment Respiratory Assessment - portable track crew chief: Respiratory Tract Infection Hx - portable track crew chief Hx Respiratory Tract Infection No 12/11/24 14:32 STOP Sleep Apnea STOP Sleep Apnea - portable track crew chief: STOP Sleep Apnea - portable track crew chief Hx Hypertension No 12/11/24 14:32 Hx Sleep Apnea Yes 12/11/24 14:32 CPAP Yes 12/11/24 14:32 BIPAP No 12/11/24 14:32 Do you snore loudly (louder than talking or can be heard Do you often feel tired/ fatigued/ sleepy during daytime? Has anyone observed you stop breathing during sleep? STOP Results Positive 12/11/24 14:32 QUESTION #5 FULL TEXT : Do you snore loudly (louder than talking or can be heard through closed doors)? 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 Specify any problems Hx of Preganancy in last 3 N/A 12/11/24 14:32 Months Nurse Filling Out Transfusion MGRIFFITH 12/11/24 14:32 & Questions: Date: 12/11/24 12/11/24 14:32 Time: 14:34 12/11/24 14:32 Patient unable to answer at this time (ie. confused, unrespo /Reproduction History /Reproductive History - portable track crew chief: /Reproductive Hx- portable track crew chief Hx Now Gestational Age (in weeks): EDC: Hx Hx Para Hx Section SAB No 10/17/24 14:20 Active Medications Active Medications: Current Medications Generic Name Dose Route Start Last Admin Trade Name Freq PRN Reason Stop Dose Admin Cefazolin Sodium 2 gm/ N/A 20 mls @ 400 mls/hr 12/19/24 09:00 IV 12/19/24 09:02 INTRAOP ONE [facility] Medical History Diabetes Localized swelling of right thumb Pain of right thumb Back pain Vertigo Dietary restriction Former smoker Shortness of breath on exertion History of pain when walking History of edema History of echocardiogram History of stress test Globus pharyngeus Neuropathy Wears glasses CPAP (continuous positive airway pressure) dependence Lumbar radiculopathy Kidney stone Penis cancer Type 2 diabetes mellitus Erectile dysfunction BPH (benign prostatic hyperplasia) Chronic headaches Hyperlipidemia Diverticular disease of colon Home Medications ?Medication ?Instructions ?Recorded ?Last Taken ?Type cholecalciferol (vitamin D3) 50 5,000 unit PO DAILY 12/18/24 History mcg (2,000 unit) tablet multivitamin 1 ea PO DAILY 06/06/1612/18 History blood-glucose meter (FreeStyle #1 ea 01/31/20 Unknown Rx Lite Meter kit) ferrous sulfate 325 mg (65 mg 325 mg PO QODAY 09/30/20 12/18/24 History iron) tablet (FerrouSul) coffee extract 50 mg-phosphatidyl 1 tab PO DAILY 01/2812/18/24 History serine 50 mg chewable tablet (Neuriva Original) tamsulosin 0.4 mg capsule 0.4 mg PO QHS 06/11/2112/18 History mecobalamin (vitamin B12) 1 tab PO TUTHSA 07/15/23 History rosuvastatin 5 mg tablet 5 mg PO DAILY #90 tabs 02/2712/18/24 Rx lancets (Accu-Chek Softclix #200 ea 05/18/24 Unknown R x Lancets) blood sugar diagnostic (Accu-Chek #100 ea 05/19/24 Unk nown Rx Guide test strips) metformin 850 mg tablet 850 mg PO BID #180 tabs 05/0112/18/24 Rx meclizine 25 mg tablet 25 mg PO BID PRN dizziness # 20 tabs 10/19/24 12/18/24 Rx Allergy/AdvReac Type Severity Reaction Status Date / Time ondansetron (From Zofran) AdvReac Severe dizziness, Verified 12/11/24 14:29 headache Family History Brother Hypertension Cancer Sister Cancer Mother Cancer Surgical History History of cataract surgery History of right inguinal hernia repair Hx of colonoscopy penisectomy History of lymph node biopsy History of tonsillectomy Social History Smoking Status: Former smoker how long ago did patient quit smokin, 1pk/day second hand exposure: Yes alcohol intake: never substance use type: does not use caffeine: Yes Type: coffee frequency: 3-4 times per week Review of Systems (Anesthesia) ROS Narrative System reviewed and no additional complaints, except as documented.
--- NOTE | 2024-12-19 07:08 | PCM.HP.BLA ---
History and Physical Date of Admission: 12/19/24 [facility] [address] [place] [address] OFFICE VISIT Date of Service: 12/04/24 MR#: [id number] Acct: [id number] Name: JACKELYN LOPEZ Sr. Rep #: [id number] : 1950 Provider: Dr. Navi Shaw DO Age/Sex: 74/M Location[place] [facility] [place] Status: Signed Intake Vital Signs 12/01/2509:28 Height 5 ft 7 in Weight: 198 lb BMI 31.0 BP 118/78 Blood Pressure Location Rt brachial Position Sitting Respiration 16 Pulse 80 Pulse Source Monitor Temp 96.6 F L Temp Source Temporal Pulse Oximetry (%) 94 Oxygen Delivery Method room air Intake Visit Reasons: RIGHT THUMB Chief Complaint: Right Thumb Pain Accompanied by: Self Is patient in pain?: Yes Pain scale (1-10): 7 Allergies ondansetron (From Zofran) Adverse Reaction (Severe, Verified 12/04/24 15:49) dizziness, headache Medications ?Medication ?Instructions ?Recorded ?Confirmed ?Type cholecalciferol (vitamin D3) 50 5,000 unit PO DAILY 10/26/13 12/04/24 History mcg (2,000 unit) tablet multivitamin 1 ea PO DAILY 06/06/16 12/04/24 History blood-glucose meter (FreeStyle #1 ea 01/31/20 12/04/24 Rx Lite Meter kit) ferrous sulfate 325 mg (65 mg 325 mg PO QODAY 09/30/20 12/04/24 History iron) tablet (FerrouSul) coffee extract 50 mg-phosphatidyl 1 tab PO DAILY 01/28/21 12/04/24 History serine 50 mg chewable tablet (Neuriva Original) tamsulosin 0.4 mg capsule 0.4 mg PO QHS 06/11/21 12/04/24 History mecobalamin (vitamin B12) 1 tab PO TUTHSA 07/15/23 12/04/24 History rosuvastatin 5 mg tablet 5 mg PO DAILY #90 tabs 02/28/24 12/04/24 Rx lancets (Accu-Chek Softclix #200 ea 05/18/24 12/04/24 Rx Lancets) blood sugar diagnostic (Accu-Chek #100 ea 05/19/24 12/04/24 Rx Guide test strips) metformin 850 mg tablet 850 mg PO BID #180 tabs 05/22/24 12/04/24 Rx meclizine 25 mg tablet 25 mg PO BID PRN dizziness #20 tabs 10/19/24 12/04/24 Rx Have you fallen in the past year?: No PFSH Medical History (Updated 12/01/24 @ 11:[address] Umair Scales MD) Localized swelling of right thumb Pain of right thumb Back pain Vertigo Dietary restriction Former smoker Shortness of breath on exertion History of pain when walking History of edema History of echocardiogram History of stress test Globus pharyngeus Neuropathy Wears glasses CPAP (continuous positive airway pressure) dependence Lumbar radiculopathy Kidney stone Penis cancer Type 2 diabetes mellitus Erectile dysfunction BPH (benign prostatic hyperplasia) Chronic headaches Hyperlipidemia Diverticular disease of colon Surgical History History of cataract surgery History of right inguinal hernia repair Hx of colonoscopy penisectomy History of lymph node biopsy History of tonsillectomy Family History Brother Hypertension CancerSister CancerMother Cancer Social History Smoking Status: Former smoker how long ago did patient quit smokin, 1pk/day second hand exposure: Yes alcohol intake: never substance use type: does not use caffeine: Yes Type: coffee frequency: 3-4 times per week HPI RIGHT THUMB Details: This documentation accurately reflects the service provided and the decisions made by me, Dr. Navi Shaw, DO 12/04/24 0849. Part of today?s visit was documented by Zoë Watkins ATC, acting as scribe. JACKELYN LOPEZ is a 74 year old M here today for right thumb pain and cyst over the A1 ang patient states this has been bothering him for about 2 weeks. He describes the pain at the base of the thumb and states it feels like there is a lump under the skin. He does have palpable triggering which is painful. 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 When he was a kid he believes he dislocated the thumb. He denies any surgery to thumb. He did have a steroid injection on 03/01/2024 Ortho Exam General General: Yes no acute distress Neurologic: Yes alert and Yes oriented x3 Psychologic: Yes reasonable and appropriate Right Wrist/Hand Skin/Wound: Yes CDI, No Swelling, No Ecchymosis, Yes nail intact and Yes capillary refill normal A1 ang trigger: Yes WRIST: hypertrophy and tender at A1 ang of thumb palpable triggering Left Wrist/Hand Skin/Wound: No Swelling and No Ecchymosis Head: Normocephalic Atraumatic Chest: symmetrical rise, non-labored breathing, no audible wheeze Abdomen: no guarding, non-rigid Supplemental Info 10/31/2024: Postop diagnosis right knee complex tear lateral meniscus tear radial tear body grade 3 diffuse medial compartment with areas of grade 4 grade 3 lateral femoral condyle with areas of grade 4 posteriorly small area of grade 4 in the trochlea grade 3 medial patellar facet . Procedure: Right knee arthroscopic partial medial partial lateral meniscectomy 10/02/2024 MRI right knee: Large horizontal tear entire lateral meniscus with extrusion. Free edge tearing body medial meniscus and likely posterior horn. Mild to moderate tricompartmental osteoarthritis. Tiny split tear of the semimembranosus tendon and small Pfeiffer's cyst 05/22/2024 x-ray right knee: No acute findings or joint effusion there is joint space narrowing medial and lateral there is small osteophyte off the posterior tibial plateau and patellofemoral joint 03/01/2024 x-ray right thumb there is degenerative change at the MP joint mild changes at the first CMC joint 01/12/2024 right index finger there is degenerative change noted of the PIP and more notably of the DIP joint 06/16/2023 EMG bilateral upper extremity :1. Electrodiagnostic findings suggestive of bilateral median mononeuropathy. This is consistent with a mild to moderate bilateral carpal tunnel syndrome. 2. No electrodiagnostic evidence is noted for cubital tunnel syndrome. 3. No electrodiagnostic evidence noted for cervical radiculopathy 05/31/2023 x-ray cervical spine: There is degenerative disc disease C3- C4, C4-5, C6-7 04/23/2023 x-ray right shoulder: moderate glenohumeral arthrosis mild AC joint arthrosis 04/23/2023 x-ray left shoulder there is mild arthrosis of the glenoid mild AC joint arthrosis Coding Level of Care Code Off vis,est,level 4 Diagnoses Trigger finger of right thumb M65.311 Assessment and Plan Assessment and Plan (1) Trigger finger of right thumb: Status: Acute Plan Spoke to patient that he could try another steroid injection or surgical procedure to release the ang in the thumb. Explained the risks and benefits of the procedure to the patient. Patient would like to skip a steroid injection and proceed with an A1 ang release to the right thumb. Risk of his alternatives reviewed including risk of bleeding infection, nerve particularly the radial digital nerve is at risk and if injured or stretch could lead to permanent or temporary numbness on the radial side of his thumb, recurrence hypersensitivity is expected for a couple of months when he cut into the hand in the incisional area. Reminded patient he cannot take any Ibuprofen/Aleve or any NSAIDs 7 days prior to surgery. Tentative surgery date December 19, 2024. Follow up after surgery for post-op appointments or sooner if pain, swelling, numbness or associated symptoms, or concerns develop. All questions answered. Patient in agreement of plan. Clinical Quality Measures Falls Risk Screening/Assistive Devices Have you fallen in the past year?: No 12/04/24 1619 <Electronically signed by Navi Shaw DO> Date Navi Shaw DO I have examined the patient and the H&P has been reviewed. There are no clinical changes since date of exam.
[2024-12-19] MEDS: 0.9% Normal Saline (1000mL) 1,000 ML 15 ML IV (07:20)
[2024-12-19] MEDS: Cefazolin 2 GM in Syringe IV (07:37)
[2024-12-19] MEDS: Lidocaine 1% /Epi 1:100 (20ml) 20 ML Vial (07:52)
--- NOTE | 2024-12-19 08:01 | PCM.OPRPT ---
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: Yes Certified Nursing Assistant: Bobby Hernández Tasks completed by medical assistant prn: Opening & closing Type of Anesthesia: General RN Documented Start/Stop Times: Operation Date: 12/19/24 07:30 Case Time Into Pre-Op 12/19/24 06:06 Out of Pre-Op 12/19/24 07:25 Anesthesia Start 12/19/24 07:27 Into Room 12/19/24 07:27 Procedure Start 12/19/24 07:42 Procedure End 12/19/24 07:54 Anesthesia End 12/19/24 07:59 Out of Room 12/19/24 07:59 Procedure Start Time: 07:42 Procedure Stop Time: 07:54 Select all DRAINS/GRAFTS/IMPLANTS that apply: None Estimated Blood Loss: 0 Specimen collected: No Description of surgery: Preoperative diagnosis; [right] [thumb] digit trigger finger Postoperative diagnosis; same Procedure: [Right] first digit A1 ang release, partial excision of hypertrophied A1 ang Anesthesia: General Tourniquet time; [10] minutes 250 mm Hg Complications: None Indication for procedure; This is a 74-year-old male with symptoms consistent with trigger thumb. Also had hypertrophied A1 ang that bothered him risks benefits and alternatives were reviewed including risks of bleeding infection nerve tendon tissue damage need for further surgery and continued pain and symptoms, hypersensitivity to scar/incision and recurrence. Procedure; The patient was met in the preoperative holding area the operative extremity was identified by both patient and physician and was marked the patient was met by anesthesia and brought back to the operating room and transferred to the operating table in the supine position. Aanesthesia was started. A well-padded tourniquet was placed on the operative upper extremity. The patient was prepped and draped in the usual sterile fashion. A timeout was called to ensure the proper patient procedure and extremity were being contemplated. Esmarch was used tourniquet was inflated. 15 blade scalpel was used to make a horizontal incision directly over the flexion crease distal to A1 ang was carried down through the skin dissection scissors were used to ensure no injury to any crossing branches of the radial digital nerve there was a branch identified and rationale retractors were used to protect the digital nerves and visualize the A1 ang under direct visualization a deep blade scalpel was used to release the A1 ang. The ang was partially removed with Littler scissors as it was as thickened and bothersome to the patient. The wound was thoroughly irrigated and closed with 4-0 nylon vertical mattress edges. 0.25 percent Marcaine plain was injected into the incisional area dressing was applied in the form of Xeroform 4 x 4 web roll and an John wrap. Patient tolerated the procedure well was brought back to the PACU in stable condition. Surgical Findings: Hypertrophied A1 ang Complications Complications: No
--- NOTE | 2024-12-19 08:03 | EX.PCM.DISCH ---
Discharge Instructions Diet Discharge Diet: No restrictions Dressing / Incision Call your doctor if you observe: Shortness of breath and Chest pain Additional Dressing/Incision Instructions:: Ice and elevate operative extremity next 72 hours. Keep dressing on clean and dry for 48 hours then may remove and allow warm soapy water to rinse over incision but do not submerge until sutures are out. Then apply bandaid over incision and change daily. encourage finger range of motion. Not lift more than 1/2 pound. Minimize narcotic use only as needed and directed, may use OTC NSAID and Tylenol to supplement/substitute for pain control. Follow Up Care Please Follow Up With: Navi Shaw DO When: 2 weeks Test Results: Test results from this visit will be discussed in further detail at your follow-up appointment, if applicable. Discharge Plan Admission Primary Reason for Your Visit: Right trigger thumb Attending Provider: Navi Shaw Primary Care Provider: Umair Scales Instructions Print Language: Citizen Of [place] Discharge Orders/Prescriptions Prescriptions: New hydrocodone-acetaminophen 5-325 mg tablet 1 tab PO Q4H PRN (Reason: pain) 3 Days Qty: 6 0RF No Action (DME) blood-glucose meter [FreeStyle Lite Meter] Kit See Rx Instructions .ROUTE .MEDSUPPLY Qty: 1 0RF Rx Instructions: As directed, check blood glucose daily for type 2 DM ferrous sulfate [FerrouSul] 325 mg (65 mg iron) tablet 325 mg PO QODAY tamsulosin 0.4 mg capsule 0.4 mg PO QHS cholecalciferol (vitamin D3) 2,000 UNIT tablet 5,000 unit PO DAILY multivitamin 1 EACH tablet 1 ea PO DAILY Neuriva Original 50-50 mg Tablet,Chewable 1 tab PO DAILY mecobalamin (vitamin B12) [B12 Active] 1 tab PO TUTHSA rosuvastatin 5 mg tablet 5 mg PO DAILY Qty: 90 3RF Rx Instructions: TAKE 1 TABLET BY MOUTH EVERY DAY (DME) lancets [Accu-Chek Softclix Lancets] Misc See Rx Instructions .Route Qty: 200 2RF Rx Instructions: daily (DME) Accu-Chek Guide test strips Strip See Rx Instructions .Route Qty: 100 2RF Rx Instructions: daily metformin 850 mg tablet 850 mg PO BID Qty: 180 2RF meclizine 25 mg tablet 25 mg PO BID PRN (Reason: dizziness) Qty: 20 0RF Referrals / Follow Up: Umair Scales MD [Primary Care Provider] - Disposition Disposition (needs filled in before D/C Order can be placed): Home, Self Care
--- NOTE | 2024-12-19 08:04 | PCM.POST.ANE ---
Anesthesia: Postop Eval I Current Vital Signs Temperature: 97.2 F Pulse Rate: 67 Blood Pressure: 126/77 Respiratory Rate: 18 Pulse Ox: 93 Oxygen Delivery Method: Room Air Assessment Airway patent: Yes Spontaneous unlabored respirations: Yes Mental status: Awake nausea: No Vomiting: No Anesthesia Complication: No Fluid Hydration Crystalloid volume administer (ml): 600 Total IV fluid infused: 600 Progress Note Anesthesia document: Postop Eval 1 completed: Yes
--- NOTE | 2024-12-19 09:42 | POSTOPAN2_ITS ---
Anesthesia Postop Eval I Sum Postop Eval Completion status Anesthesia document: Postop Eval 1 completed: Yes Anesthesia Postop Eval I Summary Anesthesia Postop Eval I Summary: Anesthesia Postop Eval I: Assessment Summary Airway patent Yes 12/19/24 08:05 CORNCOB PIPE SUPERVISOR.BPEY Spontaneous unlabored Yes 12/19/24 08:05 CORN[employer] PIPE SUPERVISOR.BPEY respirations Mental status Awake 12/19/24 08:05 CORNCO[employer] PIPE SUPERVISOR.BPEY nausea No 12/19/24 08:05 CORNCO[employer] PIPE SUPERVISOR.BPEY Vomiting No 12/19/24 08:05 CORNCOB PIPE SUPERVISOR.BPEY Anesthesia Postop Eval I: Fluid Summary Crystalloid volume administer 600 12/19/24 08:05 CORNCOB PIPE SUPERVISOR.BPEY (ml) Colloids volume administered ( ml) Blood Product volume administered (ml) Total IV fluid infused 600 12/19/24 08:05 CORNCOB PIPE SUPERVISOR.BPEY Anesthesia Postop Eval I: Summary Notes Anesthesia Complication No 12/19/24 08:05 CORNCOB PIPE SUPERVISOR.BPEY Anesthesia Complication Comment: Post-operative progress note Anesthesia: Postop Eval II Evaluation Mental status: Awake and Calm Pain Level: 1 nausea: No Vomiting: No Complications Anesthesia Complication: No
--- NOTE | 2024-12-19 09:42 | PCM.POSTANE2 ---
Anesthesia Postop Eval I Sum Postop Eval Completion status Anesthesia document: Postop Eval 1 completed: Yes Anesthesia Postop Eval I Summary Anesthesia Postop Eval I Summary: Anesthesia Postop Eval I: Assessment Summary Airway patent Yes 12/19/24 08:05 [email or web address] Spontaneous unlabored Yes 12/19/24 08:05 [email or web address].BPEY respirations Mental status Awake 12/19/24 08:05 [email or web address] nausea No 12/19/24 08:05 [email or web address].BPEY Vomiting No 12/19/24 08:05 [email or web address].BPEY Anesthesia Postop Eval I: Fluid Summary Crystalloid volume administer 600 12/19/24 08:05 BUTTONER.BPEY (ml) Colloids volume administered ( ml) Blood Product volume administered (ml) Total IV fluid infused 600 12/19/24 08:05 BUTTONER.BPEY Anesthesia Postop Eval I: Summary Notes Anesthesia Complication No 12/19/24 08:05 [email or web address].BPEY Anesthesia Complication Comment: Post-operative progress note Anesthesia: Postop Eval II Evaluation Mental status: Awake and Calm Pain Level: 1 nausea: No Vomiting: No Complications Anesthesia Complication: No
== END 2024-12-19 10:17 | disposition home or self-care (01) ==
LOC: SDC 05:55 → AC 05:57
PROVIDERS: PCP Internal Medicine; Referring Provider Orthopaedic Surgery; Visit Provider Orthopaedic Surgery
PROC: (CPT 26055; principal; 2024-12-19 07:20)
DX: M65.311 Trigger thumb, right thumb (principal); E11.40 Type 2 diabetes mellitus with diabetic neuropathy, unspecified; Z79.84 Long term (current) use of oral hypoglycemic drugs; Z87.891 Personal history of nicotine dependence; Z99.89 Dependence on other enabling machines and devices; E78.5 Hyperlipidemia, unspecified
CPT/HCPCS: 26055; 01810; 82962; A4216

== ENCOUNTER → 2025-03-01 | Outpatient (CLI) | payer MEDICARE, SELFPAY ==
[2025-03-01 16:57] LABS: PSA,Total- Diagnostic 7.94 ng/mL (0.00-4.00)
== END | disposition home or self-care (01) ==
LOC: LAB 14:47
PROVIDERS: PCP Internal Medicine; Referring Provider Urology; Visit Provider Urology
DX: R97.20 Elevated prostate specific antigen [PSA] (principal)
CPT/HCPCS: 36415; 84153

== ENCOUNTER 2025-05-08 20:50 | Emergency (ER) | payer MEDICARE, SELFPAY ==
[2025-05-08 20:52] VITALS: BP 140/87; PULSE 75; RESP 18; TEMP 36.2; O2SAT 99; BMI 31.1
--- NOTE | 2025-05-08 22:00 | EX.ED.DYSGE1 ---
HPI History of Present Illness Chief Complaint: Abd Pain [facility] Medical History Diabetes Localized swelling of right thumb Pain of right thumb Back pain Vertigo Dietary restriction Former smoker Shortness of breath on exertion History of pain when walking History of edema History of echocardiogram History of stress test Globus pharyngeus Neuropathy Wears glasses CPAP (continuous positive airway pressure) dependence Lumbar radiculopathy Kidney stone Penis cancer Type 2 diabetes mellitus Erectile dysfunction BPH (benign prostatic hyperplasia) Chronic headaches Hyperlipidemia Diverticular disease of colon Home Medications ?Medication ?Instructions ?Recorded ?Last Taken ?Type multivitamin 1 ea PO DAILY 06/06/16 12/18/24 History blood-glucose meter (FreeStyle #1 ea 01/31/20 Unknown Rx Lite Meter kit) ferrous sulfate 325 mg (65 mg 325 mg PO QODAY 09/30/20 12/18/24 History iron) tablet (FerrouSul) coffee extract 50 mg-phosphatidyl 1 tab PO DAILY 01/28/21 12/18/24 History serine 50 mg chewable tablet (Neuriva Original) tamsulosin 0.4 mg capsule 0.4 mg PO QHS 06/11/21 12/18/24 History mecobalamin (vitamin B12) 1 tab PO TUTHSA 07/15/23 12/18/24 History meclizine 25 mg tablet 25 mg PO BID PRN dizziness #20 tabs 10/19/24 12/18/24 Rx rosuvastatin 5 mg tablet 5 mg PO DAILY #90 tabs 02/28/25 Unknown Rx blood sugar diagnostic (Accu-Chek #100 ea 03/12/25 Unknown Rx Guide test strips) lancets (Accu-Chek Softclix #200 ea 03/12/25 Unknown Rx Lancets) cholecalciferol (vitamin D3) 50 2,000 unit PO DAILY 04/19/25 Unknown History mcg (2,000 unit) tablet metformin 1,000 mg tablet 1,000 mg PO BID 3 months #180 tabs 04/19/25 Unknown Rx sulfamethoxazole 800 1 tab PO BID 7 days #14 tabs 05/08/25 Unknown Rx mg-trimethoprim 160 mg tablet (Bactrim DS) Allergy/AdvReac Type Severity Reaction Status Date / Time ondansetron (From Zofran) AdvReac Severe dizziness, Verified 05/08/25 20:51 headache Family History Brother Hypertension Cancer Sister Cancer Mother Cancer Surgical History History of cataract surgery History of right inguinal hernia repair Hx of colonoscopy penisectomy History of lymph node biopsy History of tonsillectomy Social History Smoking Status: Former smoker how long ago did patient quit smokin, 1pk/day second hand exposure: Yes alcohol intake: never substance use type: does not use caffeine: Yes Type: coffee frequency: 3-4 times per week EXAM Physical Exam Const Vital Signs: 05/08/25 20:52 05/08/25 22:51 Temperature 97.1 F L Temperature Source Temporal Pulse Rate 75 72 Respiratory Rate 18 16 Blood Pressure 140/87 H 128/69 H Blood Pressure Mean 104 88 Pulse Ox 99 Oxygen Delivery Method Room Air MDM [facility] MDM Narrative Medical decision making narrative: HISTORY OF PRESENT ILLNESS: Chief complaint: Abdominal pain 74-year-old male history of hernia, diverticular disease, type 2 diabetes presents with abdominal pain notes he had left upper quad abdominal pain and groin pain that [facility]. Notes his pain has improved since arrival to the ED. REVIEW OF SYSTEMS: Pertinent positives: Abdominal pain Pertinent negatives: Dysuria, flank pain, vomiting, constipation or diarrhea PHYSICAL EXAM: Nursing triage notes reviewed, Vital signs reviewed Constitutional: please see mdm HENT: MMM Eyes: Pupils equal round and reactive to light, Extraocular muscles intact Neck: No stridor, no JVD, full neck ROM Lungs: Clear to auscultation, No wheezing or rales. No increased work of breathing, no conversational dyspnea, no accessory muscle use, no nasal flaring. No respiratory distress noted Heart: Regular rate and rhythm, No murmurs, No rubs and No gallops, 2+ distal pulses (radial, femoral, posterior tibial) in all extremities Abdomen: Soft, there is no tenderness, no obvious hernia, no rigidity, rebound or guarding, no obvious peritoneal signs, no palpable pulsatile abdominal masses, no auscultated abdominal bruit. No hernia palpated. : No CVAT Extremities: No edema Neuro: No new focal neurological deficits, cranial nerves II through XII intact, 5/5 strength in all present extremities. Intact sensation to light touch in all present extremities, 2+ reflexes bilateral patella tendons. Skin: No rash or lesions noted MEDICAL DECISION MAKING: Chief Complaint: please see HPI External records reviewed: Reviewed prior imaging studies: Factors affecting care: As per [facility] Social determinants of health: none History obtained from others: the patient's family Consults: none [facility] Narrative: The patient was initially hemodynamically stable, afebrile and nontoxic-appearing. Exam without obvious hernia or peritoneal signs. I considered the following differential diagnosis: AAA, small bowel obstruction, abdominal perforation, appendicitis, pancreatitis, hepatobiliary pathology (acute cholecystitis), mesenteric ischemia, pathology (ie nephrolithiasis, pyelonephritis). I obtained a broad lab and imaging work to further determine if the patient was suffering from a life-threatening etiology. Initially treated the patient with IV Toradol, IV Reglan and 1 L IV fluids ALL IMAGES (IF OBTAINED) HAVE BEEN PERSONALLY REVIEWED AND INTERPRETED BY MYSELF. CBC with no leukocytosis suggestive of no systemic inflammation CMP without evidence of acute kidney injury, significant electrolyte abnormality, anion gap to suggest end organ hypo-perfusion, no evidence of metabolic acidosis with a normal bicarbonate, no evidence of hepatobiliary obstructive pathology. Urinalysis consistent with UTI Lipase slightly elevated. Patient no epigastric tenderness. Will await CT scan to assess the patient has acute pancreatitis CT scan abdomen pelvis showed no acute life and radiology specifically no acute surgical abdominal pathology I suspect the patient's symptoms are related to pyelonephritis versus cystitis. Will send urine for culture we will send antibiotics. The patient and/or family, caregivers express understanding. The patient and/or family, caregivers agrees with the plan. Shared decision making: I will have a discussion with the patient and or visitors regarding risk/benefits of further testing or admission. They will be made aware of of the risk/benefits inherent in this decision they will be given the opportunity to voice understanding. Total critical care time today provided was at least 0 minutes. This excludes separately billable procedures. Critical care time (if documented) is secondary to the patient having high probability of clinically significant/life threatening deterioration in the patient's condition which required my urgent intervention. Impression: 1. Acute abdominal pain 2. UTI 3. Elevated lipase Dispo: Discharge home This note was generated with eMazeMe dictation software. It may contain incorrect words, spelling, and punctuation that were not noted in review of the chart prior to signing. Lab Data Labs: Laboratory Results - last 24 hr 05/08/25 05/08/25 21:10 21:30 WBC 10.9 RBC 4.47 L Hgb 13.2 Hct 39.5 L MCV 88.4 MCH 29.5 MCHC 33.4 RDW Std Deviation 44.2 H RDW Coeff of Andrea 13.7 Plt Count 277 MPV 10.0 Immature Gran % (Auto) 0.200 Neut % (Auto) 72.5 H Lymph % (Auto) 18.5 L [place] % (Auto) 6.8 Eos % (Auto) 1.5 Baso % (Auto) 0.5 Absolute Neuts (auto) 8.0 H Absolute Lymphs (auto) 2.02 Nucleated RBC % 0 Sodium 142 Potassium 4.2 Chloride 105 Carbon Dioxide 21.8 Anion Gap 15 BUN 19 Creatinine 1.22 H Estim Creat Clear Calc 59.59 Est GFR (MDRD) Non-Af 63 BUN/Creatinine Ratio 15.3 Glucose 131 H Calcium 9.8 Total Bilirubin 0.25 AST 27 ALT 20 Alkaline Phosphatase 84 Total Protein 7.7 Albumin 4.4 Globulin 3.4 Albumin/Globulin Ratio 1.3 Lipase 110 H Urine Color Yellow Urine Clarity Clear Urine pH 6.0 Ur Specific [place] 1.020 Urine Protein 15 H Urine Glucose (UA) Normal Urine Ketones Negative Urine Occult Blood 25 H Urine Nitrite Positive H Urine Bilirubin Negative Urine Urobilinogen Normal Ur Leukocyte Esterase 25 H Urine RBC 0-5 SEEN Urine WBC 0-5 SEEN Ur Squamous Epith Cells 0-5 SEEN Amorphous Sediment 1+ Urine Bacteria 2+ Urine Mucus 0 SEEN Radiography Chest X-Ray - ED: Read by ED Physician Diagnostic Testing: Clinical Impression(s) from Imaging Studies Abdomen/Pelvis CT 05/08/25 22:01 IMPRESSION: Fat infiltrated, large liver. Right renal cyst. Large bowel diverticulosis, no diverticulitis. No acute intra-abdominal process. Reading Location: [place] [address] Discharge Plan Triage Chief Complaint: Abd Pain ED Provider: Roderick Rowland Dx/Rx/DC Orders Instructions: Urinary Tract Infections in Men, ED Pyelonephritis, Male (Adult) Prescriptions: New sulfamethoxazole-trimethoprim [Bactrim DS] 800-160 mg tablet 1 tab PO BID 7 Days Qty: 14 0RF No Action (DME) blood-glucose meter [FreeStyle Lite Meter] Kit See Rx Instructions .ROUTE .MEDSUPPLY Qty: 1 0RF Rx Instructions: As directed, check blood glucose daily for type 2 DM ferrous sulfate [FerrouSul] 325 mg (65 mg iron) tablet 325 mg PO QODAY tamsulosin 0.4 mg capsule 0.4 mg PO QHS metformin 1,000 mg tablet 1,000 mg PO BID 90 Days Qty: 180 2RF cholecalciferol (vitamin D3) 50 mcg (2,000 unit) tablet 2,000 unit PO DAILY multivitamin 1 EACH tablet 1 ea PO DAILY Neuriva Original 50-50 mg Tablet,Chewable 1 tab PO DAILY mecobalamin (vitamin B12) [B12 Active] 1 tab PO TUTHSA meclizine 25 mg tablet 25 mg PO BID PRN (Reason: dizziness) Qty: 20 0RF rosuvastatin 5 mg tablet 5 mg PO DAILY Qty: 90 3RF Rx Instructions: TAKE 1 TABLET BY MOUTH EVERY DAY (DME) Accu-Chek Guide test strips Strip See Rx Instructions .Route Qty: 100 2RF Rx Instructions: daily (DME) lancets [Accu-Chek Softclix Lancets] Misc See Rx Instructions .Route Qty: 200 2RF Rx Instructions: daily Primary Care Provider: Umair Scales Referrals: Umair Scales MD [Primary Care Provider] - Activity Restrictions/Additional Instructions: Thank you for trusting us with your care today! Your labs and CT scan were consistent with urinary inflammation. You likely suffered from a UTI. Please take antibiotics until course is complete. Please take Tylenol (2 pills, 650 mg), ibuprofen (2 pills, 400 mg) every 6 hours as needed for pain and fever control. Please return to the emergency department if your symptoms change or worsen. Please follow with your primary care physician for further outpatient evaluation and management. Print Language: Indonesian Disposition Disposition: Home, Self Care Discharge Date/Time: 05/09/25 00:03
--- NOTE | 2025-05-08 22:01 | CT_ITS ---
PROCEDURE: ABDOMEN/PELVIS W IV CONT ONLY 05/08/2025 REASON FOR EXAM: LEFT LOWER QUAD ABDOMINAL PAIN, LEFT GROIN PAIN TECHNIQUE: Procedure Code: [id number] Modality: CT Procedure: ABDOMEN/PELVIS W IV CONT ONLY Coronal and Sagittal reconstruction series were provided. CONTRAST: 100 mL of Isovue-370 One or more dose reduction techniques were used (e.g., Automated exposure control, adjustment of the mA and/or kV according to patient size, use of iterative reconstruction technique. RADIATION DOSE SUMMARY: CTDlvol: 20.01 mGy DLP: 1007.37 mGycm COMPARISON: 07/15/2023 FINDINGS: The visualized lung bases are unremarkable. The coronary arteries are not calcified. The liver is slightly enlarged and decreased in density consistent with fat infiltration. Normal gallbladder and extrahepatic biliary system. Normal spleen. Normal pancreas. Normal bilateral adrenal glands. Normal size of the right kidney. There is no right renal mass. 8.75 cm cyst is seen in the upper pole of the right kidney There are no right renal calculi. There is no right hydronephrosis. Normal visualized right ureter. Normal size of the left kidney. There is no left renal mass. There are no left renal calculi. There is no left hydronephrosis. Normal visualized left ureter. Normal visualized stomach. Normal small intestine. Numerous diverticula are seen throughout the large bowel without diverticulitis. The appendix is visualized and appears normal. There is no demonstrated peritoneal fluid. Normal abdominal aorta. Normal inferior vena cava. Normal retroperitoneum. Normal urinary bladder. There is no pelvic mass lesion or lymphadenopathy. There is no pelvic fluid. The prostate gland is slightly enlarged. Postsurgical changes are seen at the levels of the inguinal regions bilaterally. Normal osseous structures. CT/Abdomen/Pelvis W IV Cont ONLY IMPRESSION: Fat infiltrated, large liver. Right renal cyst. Large bowel diverticulosis, no diverticulitis. No acute intra-abdominal process. Reading [facility] [address]
[2025-05-08 22:08] LABS: Mucous, Urine 0 SEEN /hpf (<or=2+)
[2025-05-08 22:11] LABS: Hematocrit 39.5 % (40-54); Hemoglobin 13.2 g/dL (13.0-16.5); Immature Granulocytes Count 0.020 X10^3/uL (0.0-0.0); Mean Corp Hgb Conc 33.4 g/dL (32-36); Mean Corpuscular Volume 88.4 fL (80-94); Mean Platelet Vol. 10.0 fl (6.2-12.0); NRBC Flagged by Analyzer 0 % (0-5); Platelet Count 277 K/mm3 (150-450); RBC Distribution Width CV 13.7 % (11.6-14.6); RBC Distribution Width SD 44.2 fl (35.1-43.9); Red Blood Count 4.47 M/mm3 (4.6-6.2); White Blood Count 10.9 K/mm3 (4.4-11.0)
[2025-05-08] MEDS: 0.9% Normal Saline (1000mL) 1,000 ML 999 ML IV (22:11)
[2025-05-08 22:13] LABS: Glucose, Dipstick Normal (Normal); Ketone-Dipstick Negative (Negative); Leukocyte Esterase-Dipstick 25 /ul (Negative); Nitrite-Dipstick Positive (Negative); Occult Blood-Urine 25 /ul (Negative); Protein-Dipstick 15 mg/dl (Negative); Specific Gravity, Urine 1.020 (1.002-1.030); Urine Bilirubin Dipstick Negative (Negative)
[2025-05-08 22:40] LABS: AST(SGOT) 27 U/L (<=37); Alanine Aminotransfer ALT/SGPT 20 U/L (<=46); Albumin, Serum 4.4 g/dL (3.4-4.8); Alkaline Phosphatase 84 U/L (40-129); Anion Gap 15 (5-15); BUN 19 mg/dL (4-19); BUN/Creat Ratio 15.3 RATIO (10-20); Calcium,Total 9.8 mg/dL (7.6-11.0); Carbon Dioxide 21.8 mmol/L (21.0-32.0); Chloride 105 mmol/L (98-108); Estimated Creatinine Clearance 59.59 ml/min (50-250); Globulin 3.4 g/dL (2.2-4.2); Glucose 131 mg/dL (70-99); Lipase 110 U/L (13-75); Potassium 4.2 mmol/L (3.3-5.1)
[2025-05-08 22:46] LABS: Color, Urine Yellow (Yellow)
[2025-05-08 22:51] VITALS: BP 128/69; PULSE 72; RESP 16
[2025-05-08 22:51] LABS: Red Blood Cells-Urine 0-5 SEEN /hpf (0-5); Squamous Epithelial Cells - UA 0-5 SEEN /hpf (0-5)
[2025-05-09] MEDS: Smz/Tmp Ds Tablet 1 TABLET PO
[2025-05-09 00:02] VITALS: BP 140/82; PULSE 78; RESP 16; TEMP 37; O2SAT 97
== END 2025-05-09 00:03 | disposition home or self-care (01) ==
PROVIDERS: Emergency Provider Emergency Medicine; PCP Internal Medicine; Visit Provider Emergency Medicine
DX: N39.0 Urinary tract infection, site not specified (principal); E11.40 Type 2 diabetes mellitus with diabetic neuropathy, unspecified; R10.12 Left upper quadrant pain; E78.5 Hyperlipidemia, unspecified; R74.8 Abnormal levels of other serum enzymes; Z87.891 Personal history of nicotine dependence
CPT/HCPCS: 74177; 80053; 81001; 83690; 85025; 87077; 87086; 87088; 87186; 96361; 96374; 96375; 99283; Q9967; A4216

== ENCOUNTER → 2025-05-18 | Outpatient (CLI) | payer MEDICARE, SELFPAY ==
[2025-05-18 11:07] LABS: Mucous, Urine 0 SEEN /hpf (<or=2+); Red Blood Cells-Urine 0 SEEN /hpf (0-5); Squamous Epithelial Cells - UA 0 SEEN /hpf (0-5)
[2025-05-18 12:39] LABS: Color, Urine Yellow (Yellow); Glucose, Dipstick Normal (Normal); Ketone-Dipstick Negative (Negative); Leukocyte Esterase-Dipstick 500 /ul (Negative); Nitrite-Dipstick Negative (Negative); Occult Blood-Urine 10 /ul (Negative); Protein-Dipstick 15 mg/dl (Negative); Specific Gravity, Urine 1.025 (1.002-1.030); Urine Bilirubin Dipstick Negative (Negative)
== END | disposition home or self-care (01) ==
LOC: LABSPEC 11:05
PROVIDERS: PCP Internal Medicine; Visit Provider Physician Assistant
DX: N39.0 Urinary tract infection, site not specified (principal)
CPT/HCPCS: 81001; 87086; 87088

== ENCOUNTER 2025-08-13 07:40 | Day surgery (SDC) | payer MEDICARE, SELFPAY ==
--- NOTE | 2025-08-07 12:39 | EKG12_ITS ---
Test Reason : PREOP Blood Pressure : */* mmHG Vent. Rate : 70 BPM Atrial Rate : 70 BPM P-R Int : 190 ms QRS Dur : 82 ms QT Int : 390 ms P-R-T Axes : 45 -32 11 degrees QTcB Int : 421 ms Normal sinus rhythm Borderline Confirmed by Sabino Lopez ([id number]), editor managing director TARIQ MADRIGAL ([id number]) on 08/08/2025 1:04:51 PM Referred By: Rene Sullivan Confirmed By: Sabino Lopez
--- NOTE | 2025-08-07 16:20 | PAT.ANESEVAL ---
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 When Was Last Pacemaker Check QUESTION #4 FULL TEXT: You/Your Family Experience fever (hyperthermia) with Anesthesia Last Oral Intake Last Oral intake: Last Oral Intake NPO since Meds taken in AM with sips of water? Meds patient instructed to take am of surgery PONV PONV - software development intern: PONV - software development intern Female No 08/02/25 14:06 HX of Motion Sickness Yes 08/02/25 14:06 HX of N/V After Surgery No 08/02/25 14:06 Non-Smoker Yes 08/02/25 14:06 Duration of Surgery greater Yes 08/02/25 14:06 than 60 minutes Number of Risk Factors 3 08/02/25 14:06 PONV Score Moderate Risk 08/02/25 14:06 Height & Weight Height & Weight: Anesthesia: Height & Weight Height 5 ft 8 in 07/25/25 09:14 Respiratory Assessment Respiratory Assessment - software development intern: Respiratory Tract Infection Hx - software development intern Hx Respiratory Tract Infection No 08/02/25 14:06 STOP Sleep Apnea STOP Sleep Apnea - software development intern: STOP Sleep Apnea - software development intern Hx Hypertension No 08/02/25 14:06 Hx Sleep Apnea Yes 08/02/25 14:06 CPAP Yes 08/02/25 14:06 BIPAP No 08/02/25 14:06 Do you snore loudly (louder than talking or can be heard Do you often feel tired/ fatigued/ sleepy during daytime? Has anyone observed you stop breathing during sleep? STOP Results Positive 08/02/25 14:06 QUESTION #5 FULL TEXT : Do you snore loudly (louder than talking or can be heard through closed doors)? Tobacco Use History Tobacco Use History - software development intern: Tobacco Use History - software development intern Tobacco Use Non-smoker 05/10/25 09:31 Smoking Status Former smoker 08/02/25 14:06 Hx Tobacco Use No 08/02/25 14:06 Years Smoking Packs Smoked per Day Smoking Cessation Date was No - quit smoking greater 08/02/25 14:06 within the last 15 years than 15 years ago Hx Smoking Cessation Date 01/28/90 08/02/25 14:06 Hx Smoking Cessation No 08/02/25 14:06 Counseling Hematologic Medial History Hematologic Hx - software development intern: Hematologic Medical Hx - rest room maid Hx of Blood Transfusion No 08/02/25 14:06 Hx of Transfusion in last 3 No 08/02/25 14:06 Months Date of Last Transfusion (if within last 3 months) Ever experience any problems No 08/02/25 14:06 with transfusion(s)? Specify any problems Hx of Preganancy in last 3 N/A 08/02/25 14:06 Months Nurse Filling Out Transfusion JZOLLINGE 08/02/25 14:06 & Questions: Date: 08/02/25 08/02/25 14:06 Time: 14:07 08/02/25 14:06 Patient unable to answer at this time (ie. confused, unrespo /Reproduction History /Reproductive History - software development intern: /Reproductive Hx- software development intern Hx Now No 08/02/25 14:06 Gestational Age (in weeks): EDC: Hx Hx Para Hx Section SAB No 08/02/25 14:06 Does the father of the baby or his family experience fever w Father of the baby Malignant Hypertension history comment [facility] Medical History (Updated 08/02/25 @ 14:06 by Stefanie Carbajal) Arthritis History of diverticulitis Sleep apnea Left groin pain Diabetes Localized swelling of right thumb Pain of right thumb Back pain Vertigo Dietary restriction Former smoker Shortness of breath on exertion History of pain when walking History of edema History of echocardiogram History of stress test Globus pharyngeus Neuropathy Wears glasses CPAP (continuous positive airway pressure) dependence Lumbar radiculopathy Kidney stone Penis cancer Type 2 diabetes mellitus Erectile dysfunction BPH (benign prostatic hyperplasia) Chronic headaches Hyperlipidemia Diverticular disease of colon Home Medications ?Medication ?Instructions ?Recorded ?Last Taken ?Type multivitamin 1 ea PO DAILY 06/06/16 12/18/24 History blood-glucose meter (FreeStyle #1 ea 01/31/20 Unknown Rx Lite Meter kit) ferrous sulfate 325 mg (65 mg 325 mg PO QODAY 09/30/20 12/18/24 History iron) tablet (FerrouSul) tamsulosin 0.4 mg capsule 0.4 mg PO QHS 06/11/21 12/18/24 History mecobalamin (vitamin B12) 1 tab PO TUTHSA 07/15/23 12/18/24 History meclizine 25 mg tablet 25 mg PO BID PRN dizziness #20 tabs 10/19/24 12/18/24 Rx rosuvastatin 5 mg tablet 5 mg PO DAILY #90 tabs 02/28/25 Unknown Rx blood sugar diagnostic (Accu-Chek #100 ea 03/12/25 Unknown Rx Guide test strips) lancets (Accu-Chek Softclix #200 ea 03/12/25 Unknown Rx Lancets) cholecalciferol (vitamin D3) 50 2,000 unit PO DAILY 04/19/25 Unknown History mcg (2,000 unit) tablet metformin 1,000 mg tablet 1,000 mg PO BID 3 months #180 tabs 04/19/25 Unknown Rx blood-glucose sensor (FreeStyle #1 ea 07/12/25 Unknown Rx Diane 3 Plus Sensor device) blood-glucose,social service assistant,cont #1 ea 07/12/25 Unknown Rx (FreeStyle Diane 3 Power) Allergy/AdvReac Type Severity Reaction Status Date / Time ondansetron (From Zofran) AdvReac Severe dizziness, Verified 08/02/25 14:00 headache Family History Brother Hypertension Cancer Sister Cancer Mother Cancer Surgical History History of cataract surgery History of right inguinal hernia repair Hx of colonoscopy penisectomy History of lymph node biopsy History of tonsillectomy Social History Smoking Status: Former smoker how long ago did patient quit smokin, 1pk/day second hand exposure: Yes alcohol intake: never substance use type: does not use caffeine: Yes Type: coffee frequency: 3-4 times per week Audit: Pertinent Findings Pertinent Findings EKG Perinent findings: EKG 05/15/2022. Normal sinus rhythm. Recommendation Anesthesia Recommendation Anesthesia recommendation: OPTIMIZED for anesthesia
[2025-08-13] VITALS (12 sets, daily range): BP systolic 108–128; BP diastolic 72–82; PULSE 56–68; RESP 16–20; TEMP 36.2–36.6; O2SAT 67–100; BMI 29.8
--- NOTE | 2025-08-13 08:26 | PCM.HP.BLA ---
History and Physical Date of Admission: 08/13/25 Intake Vital Signs 05/18/2509:15 07/12/2513:27 07/25/2509:14 Height 5 ft 8 in 5 ft 8 in 5 ft 8 in Weight: 198 lb 4 oz 199 lb 201 lb BMI 30.1 30.2 30.5 BP 128/76 H 108/80 116/68 Blood Pressure Location Rt brachial Lt brachial Rt brachial Position Sitting Sitting Sitting Respiration 16 16 17 Pulse 74 73 70 Pulse Source Monitor Monitor Monitor Temp 98.6 F 97.9 F Temp Source Temporal Temporal Pulse Oximetry (%) 97 96 97 Oxygen Delivery Method room air room air room air Intake Visit Reasons: L INGUINAL HERNIA Chief Complaint: left inguinal hernia Is patient in pain?: No Allergies ondansetron (From Zofran) Adverse Reaction (Severe, Verified 07/25/25 09:15) dizziness, headache Medications ?Medication ?Instructions ?Recorded ?Confirmed ?Type multivitamin 1 ea PO DAILY 06/06/16 07/25/25 History blood-glucose meter (FreeStyle #1 ea 01/31/20 07/12/25 Rx Lite Meter kit) ferrous sulfate 325 mg (65 mg 325 mg PO QODAY 09/30/20 07/25/25 History iron) tablet (FerrouSul) tamsulosin 0.4 mg capsule 0.4 mg PO QHS 06/11/21 07/25/25 History mecobalamin (vitamin B12) 1 tab PO TUTHSA 07/15/23 07/25/25 History meclizine 25 mg tablet 25 mg PO BID PRN dizziness #20 tabs 10/19/24 07/12/25 Rx rosuvastatin 5 mg tablet 5 mg PO DAILY #90 tabs 02/28/25 07/25/25 Rx blood sugar diagnostic (Accu-Chek #100 ea 03/12/25 07/12/25 Rx Guide test strips) lancets (Accu-Chek Softclix #200 ea 03/12/25 07/12/25 Rx Lancets) cholecalciferol (vitamin D3) 50 2,000 unit PO DAILY 04/19/25 07/25/25 History mcg (2,000 unit) tablet metformin 1,000 mg tablet 1,000 mg PO BID 3 months #180 tabs 04/19/25 07/25/25 Rx blood-glucose sensor (FreeStyle #1 ea 07/12/25 07/12/25 Rx Diane 3 Plus Sensor device) blood-glucose,product manager,cont #1 ea 07/12/25 07/12/25 Rx (FreeStyle Diane 3 [place]) Have you fallen in the past year?: No [facility] Medical History (Updated 07/25/25 @ 09:[address] Rene Sullivan MD) Left groin pain Diabetes Localized swelling of right thumb Pain of right thumb Back pain Vertigo Dietary restriction Former smoker Shortness of breath on exertion History of pain when walking History of edema History of echocardiogram History of stress test Globus pharyngeus Neuropathy Wears glasses CPAP (continuous positive airway pressure) dependence Lumbar radiculopathy Kidney stone Penis cancer Type 2 diabetes mellitus Erectile dysfunction BPH (benign prostatic hyperplasia) Chronic headaches Hyperlipidemia Diverticular disease of colon Surgical History History of cataract surgery History of right inguinal hernia repair Hx of colonoscopy penisectomy History of lymph node biopsy History of tonsillectomy Family History Brother Hypertension Cancer Sister Cancer Mother Cancer Social History Smoking Status: Former smoker how long ago did patient quit smokin, 1pk/day second hand exposure: Yes alcohol intake: never substance use type: does not use caffeine: Yes Type: coffee frequency: 3-4 times per week HPI HPI HPI: Patient is a 74-year-old male here with left groin bulging. The patient had a right inguinal hernia repaired by Dr. Villarreal in the past laparoscopically. Patient noticed that the last month he has been having bulging on the left. He denies fevers or chills or nausea or vomiting. He says that it comes out when he coughs or sneezes. ROS General General: Yes fatigue; No weight change, appetite, colon cancer, breast cancer or weakness HEENT HEENT: Yes eye surgery; No difficulty swallowing, eye injury, swollen glands or hoarseness Endo Endocrine: Yes diabetes mellitus; No thyroid disease, thyroid cancer, Hair loss, heat intolerance or cold intolerance Skin Skin: No rash or changing moles Musc Musculoskeletal: Yes back problems and arthritis; No rheumatoid arthritis, gout or joint pain Cardio Cardiovascular: No murmur, pacemaker, heart disease, atrial fibrillation, high blood pressure, heart attack, heart stent, palpitations, shortness of breath with exertion or chest pain Psych Psychiatric: No depression, anxiety or hearing voices Resp Respiratory: Yes shortness of breath, Yes sleep apnea, No cough, No COPD, No asthma, No emphysema and No wheezing Gastro Gastrointestinal: No abdominal pain, No nausea or vomiting, Yes diarrhea, No constipation, No blood in stool, No acid reflux, No hemorrhoids, No ulcers, No gallbladder problem and No black,tarry stools Blue Hematologic: No blood thinners, No blood disorders, No bleeding, No anemia and No blood clots Neuro Neurologic: No system reviewed and no additional complaints, except as documented, No as per HPI, No abnormal gait, No abnormal hearing, No abnormal movements, No abnormal speech, No behavioral changes, No burning sensations, No confusion, No convulsions, No disequilibrium, No dizziness, No localized weakness, No frequent falls, No headache(s), No lack of coordination, No loss of vision, No memory loss, Yes numbness, No other visual disturbances, No radicular pain, No restless legs, No sensory deficit, No syncope, Yes tingling, No tremor(s), No weakness and No other Exam Const General: cooperative Orientation: alert and oriented x3 [facility] Head: normal to inspection Neck Neck: normal visual inspection and full ROM Chest Chest palpation & inspection: normal inspection of the chest Resp Effort & Inspection: normal respiratory effort Auscultation: clear to auscultation bilaterally Cardio Rate: regular rate Rhythm: regular rhythm GI Inspection: non-distended Palpation: soft, hernia direct inguinal on the left and nontender Skin General: no rashes or lesions noted Neuro General: patient alert and patient oriented x3 Extrem General: full ROM Psych Appearance: grossly normal Mental Status: mental status grossly normal Assessment and Plan Assessment and Plan (1) Left inguinal hernia: Status: Acute Plan: Patient is having left groin discomfort and has a left inguinal hernia which seems to be direct. It is easily reducible. I discussed robotic assisted laparoscopic left inguinal hernia repair with mesh. I discussed the procedure in detail as well as the risks including but not limited to bleeding, infection, injury to surrounding organs such as the bowel, bladder, ureter, blood supply to the testicle. I also discussed the possibility of chronic groin pain. I also discussed mesh placement in detail. Patient questions were all answered and the patient agrees to proceed. Rene Sullivan MD Pager: [facility] [address] [place] [address], [address] [place] [phone] Office: I have examined the patient and the H&P has been reviewed. There are no clinical changes since date of exam.
--- NOTE | 2025-08-13 08:51 | PRE.ANES_ITS ---
ASA Classification* ASA Classification ASA Classification: 3 Assessment & Plan Anesthesia* Anesthesia Assessment Anesthesia Assessment: Discussed sedation and/or anesthesia options, risks, benefits, and alternatives with patient/parents/legal guardian/POA. Questions invited. The patient/parents/legal guardian/POA seems to understand and agrees to proceed with anesthesia plan. Reviewed the physical assessment, medical history, allergy history and patient home medications list prior to surgery/procedure/anesthetic and documented any changes. Performed airway and anesthesia risk assessments. Anesthesia Type Anesthesia Type: General History Source History Obtained from:: Patient and Chart Anesthesia Focused Assessment* Temperature: 97.8 F Pulse Rate: 68 Blood Pressure: 119/78 Respiratory Rate: 16 Pulse Ox: 98 Oxygen Delivery Method: Room Air Airway Assessment Mouth opens: >3 cm Mallampati Score: II Teeth Condition: Missing (Patient is missing a left upper molar. Rest is tight.) Neck Range of motion (ROM): Limited ROM (Slight Decrease) Labs Anesthesia Preop lab: CBC WBC, (4.4-11.0) 10.9 K/mm3 05/08/25, 21:10 RBC, (4.6-6.2) 4.47 M/mm3 L 05/08/25, 21:10 Hgb, (13.0-16.5) 13.2 g/dL 05/08/25, 21:10 Hct, (40-54) 39.5 % L 05/08/25, 21:10 Plt Count, (150-450) 277 K/mm3 05/08/25, 21:10 CHEMISTRY Potassium, (3.3-5.1) 4.2 mmol/L 05/08/25, 21:10 Sodium, (133-145) 142 mmol/L 05/08/25, 21:10 BUN, (4-19) 19 mg/dL 05/08/25, 21:10 Creatinine, (0.70-1.20) 1.22 mg/dL H 05/08/25, 21:10 Glucose, (70-99) 131 mg/dL H 05/08/25, 21:10 POC Glucose, (74-106) 104 mg/dL 12/19/24, 06:30 TSH, (0.358-3.74) 2.57 uIU/mL 04/23/23, 14:01 COAG Pre-Assessment Diagnosis/Proposed Procedure Planned Operative Procedure(s): (L) Lap Robotic Inguinal Hernia w/mesh Anesthesia History Anesthesia History - lead electrical controls engineer: Anesthesia History - lead electrical controls engineer Hx Hospitalization No 08/02/25 14:06 Any Problems With Anesthesia No 08/02/25 14:06 Cholinesterase deficiency No 08/02/25 14:06 You/Your Family Experience No 08/02/25 14:06 fever (hyperthermia) with Relationship Recent Exposure to Contagious No 05/10/25 09:31 Disease Does patient have nerve No 08/02/25 14:06 stimulator Patient instructed to have device shut off --Does patient have Pacemaker No 08/13/25 08:07 or ICD? When Was Last Pacemaker Check QUESTION #4 FULL TEXT: You/Your Family Experience fever (hyperthermia) with Anesthesia Last Oral Intake Last Oral intake: Last Oral Intake NPO since 20:00 08/13/25 08:07 Meds taken in AM with sips of No 08/13/25 08:07 water? Meds patient instructed to take am of surgery PONV PONV - lead electrical controls engineer: PONV - lead electrical controls engineer Female No 08/02/25 14:06 HX of Motion Sickness Yes 08/02/25 14:06 HX of N/V After Surgery No 08/02/25 14:06 Non-Smoker Yes 08/02/25 14:06 Duration of Surgery greater Yes 08/02/25 14:06 than 60 minutes Number of Risk Factors 3 08/02/25 14:06 PONV Score Moderate Risk 08/02/25 14:06 Height & Weight Height & Weight: Anesthesia: Height & Weight Height 5 ft 8 in 08/13/25 08:07 Weight: 89 kg 08/13/25 08:07 Body Mass Index (BMI) 29.8 08/13/25 08:07 Respiratory Assessment Respiratory Assessment - lead electrical controls engineer: Respiratory Tract Infection Hx - lead electrical controls engineer Hx Respiratory Tract Infection No 08/02/25 14:06 STOP Sleep Apnea STOP Sleep Apnea - lead electrical controls engineer: STOP Sleep Apnea - lead electrical controls engineer Hx Hypertension No 08/02/25 14:06 Hx Sleep Apnea Yes 08/02/25 14:06 CPAP Yes 08/02/25 14:06 BIPAP No 08/02/25 14:06 Do you snore loudly (louder than talking or can be heard Do you often feel tired/ fatigued/ sleepy during daytime? Has anyone observed you stop breathing during sleep? STOP Results Positive 08/02/25 14:06 QUESTION #5 FULL TEXT : Do you snore loudly (louder than talking or can be heard through closed doors)? Tobacco Use History Tobacco Use History - lead electrical controls engineer: Tobacco Use History - lead electrical controls engineer Tobacco Use Non-smoker 05/10/25 09:31 Smoking Status Former smoker 08/02/25 14:06 Hx Tobacco Use No 08/02/25 14:06 Years Smoking Packs Smoked per Day Smoking Cessation Date was No - quit smoking greater 08/02/25 14:06 within the last 15 years than 15 years ago Hx Smoking Cessation Date 01/28/90 08/02/25 14:06 Hx Smoking Cessation No 08/02/25 14:06 Counseling Hematologic Medial History Hematologic Hx - lead electrical controls engineer: Hematologic Medical Hx - channel cementer outsole machine Hx of Blood Transfusion No 08/02/25 14:06 Hx of Transfusion in last 3 No 08/02/25 14:06 Months Date of Last Transfusion (if within last 3 months) Ever experience any problems No 08/02/25 14:06 with transfusion(s)? Specify any problems Hx of Preganancy in last 3 N/A 08/02/25 14:06 Months Nurse Filling Out Transfusion ANDREA 08/02/25 14:06 & Questions: Date: 08/02/25 08/02/25 14:06 Time: 14:07 08/02/25 14:06 Patient unable to answer at this time (ie. confused, unrespo /Reproduction History /Reproductive History - lead electrical controls engineer: /Reproductive Hx- lead electrical controls engineer Hx Now No 08/02/25 14:06 Gestational Age (in weeks): EDC: Hx Hx Para Hx Section SAB No 08/02/25 14:06 Does the father of the baby or his family experience fever w Father of the baby Malignant Hypertension history comment Active Medications Active Medications: Current Medications Generic Name Dose Route Start Last Admin Trade Name Freq PRN Reason Stop Dose Admin Lactated Ringer's 1,000 mls @ 15 mls/hr 08/13/25 08:00 IV .Q48H SILVESTRE PFSH Medical History Arthritis History of diverticulitis Sleep apnea Left groin pain Diabetes Localized swelling of right thumb Pain of right thumb Back pain Vertigo Dietary restriction Former smoker Shortness of breath on exertion History of pain when walking History of edema History of echocardiogram History of stress test Globus pharyngeus Neuropathy Wears glasses CPAP (continuous positive airway pressure) dependence Lumbar radiculopathy Kidney stone Penis cancer Type 2 diabetes mellitus Erectile dysfunction BPH (benign prostatic hyperplasia) Chronic headaches Hyperlipidemia Diverticular disease of colon Home Medications ?Medication ?Instructions ?Recorded ?Last Taken ?Type multivitamin 1 ea PO DAILY 06/06/1612/18 History blood-glucose meter (FreeStyle #1 ea 01/31/20 Unknown Rx Lite Meter kit) ferrous sulfate 325 mg (65 mg 325 mg PO QODAY 09/30/20 12/18/24 History iron) tablet (FerrouSul) tamsulosin 0.4 mg capsule 0.4 mg PO QHS 06/11/2112/18 History mecobalamin (vitamin B12) 1 tab PO TUTHSA 07/15/23 History meclizine 25 mg tablet 25 mg PO BID PRN dizziness # 20 tabs 10/19/24 12/18/24 Rx rosuvastatin 5 mg tablet 5 mg PO DAILY #90 tabs 02/28 Unknown Rx blood sugar diagnostic (Accu-Chek #100 ea 03/12/25 Unk nown Rx Guide test strips) lancets (Accu-Chek Softclix #200 ea 03/12/25 Unknown R x Lancets) cholecalciferol (vitamin D3) 50 2,000 unit PO DAILY Unknown History mcg (2,000 unit) tablet metformin 1,000 mg tablet 1,000 mg PO BID 3 months #18 0 tabs 04/19/25 Unknown Rx blood-glucose sensor (FreeStyle #1 ea 07/12/25 Unknown Rx Diane 3 Plus Sensor device) blood-glucose,tube coverer,cont #1 ea 07/12/25 Unknown Rx (FreeStyle Diane 3 [place]) Allergy/AdvReac Type Severity Reaction Status Date / Time ondansetron (From Zofran) AdvReac Severe dizziness, Verified 08/13/25 08:03 headache Family History Brother Hypertension Cancer Sister Cancer Mother Cancer Surgical History History of cataract surgery History of right inguinal hernia repair Hx of colonoscopy penisectomy History of lymph node biopsy History of tonsillectomy Social History Smoking Status: Former smoker how long ago did patient quit smokin, 1pk/day second hand exposure: Yes alcohol intake: never substance use type: does not use caffeine: Yes Type: coffee frequency: 3-4 times per week Review of Systems (Anesthesia) ROS Narrative System reviewed and no additional complaints, except as documented.
[2025-08-13] MEDS: Lidocaine 1% (5 ml sdv) 5 ML Vial IV (09:08)
[2025-08-13] MEDS: fentaNYL 100 MCG/2 ML Ampul IV (09:09)
[2025-08-13] MEDS: Cefazolin 1 GM/5 ML Vial 2 GM IV (09:13)
[2025-08-13] MEDS: Midazolam 2 MG/2 ML Syringe IV (09:31)
--- NOTE | 2025-08-13 10:05 | OP.PCM_ITS ---
Operative Report (Standard) Operative Information Date of Procedure: 08/13/25 Pre-Operative Diagnosis: Left inguinal hernia Post-Operative Diagnosis: Left inguinal hernia Surgery/Procedure Performed: Robotic assisted laparoscopic left inguinal hernia repair with mesh senior staff accountant: Yes Orderlies Teacher: Gerald Rose Tasks completed by family readiness support assistant: Opening & closing and Retracting Type of Anesthesia: Epidural/Supplement RN Documented Start/Stop Times: Operation Date: 08/13/25 09:20 Case Time Into Pre-Op 08/13/25 07:50 Out of Pre-Op 08/13/25 09:03 Anesthesia Start 08/13/25 09:08 Into Room 08/13/25 09:08 Procedure Start 08/13/25 09:32 Procedure End 08/13/25 10:03 Procedure Start Time: 09:32 Procedure Stop Time: 10:03 Select all DRAINS/GRAFTS/IMPLANTS that apply: Implanted device Implanted device details: ProGrip mesh in the left groin Estimated Blood Loss: 10 Specimen collected: No Description of surgery: Patient was brought back to the operating room and general anesthesia was induced. The abdomen was prepped and draped in usual sterile fashion. A midline incision was made superior to the umbilicus and the fascia was grasped and elevated. A Veress needle was placed into the abdomen and a drop test was performed. The abdomen was insufflated to 15 mmHg and the Veress needle was removed. A port was placed into the abdomen. The abdomen was inspected with the camera for injuries and there were none. Under direct visualization an 8 mm ports placed in the right lateral abdomen sidewall as well as the left lateral abdomen sidewall. Patient was placed in steep Trendelenburg position and the robot was docked. An incision was made in the peritoneum in the left lower quadrant. Dissection was carried inferiorly until the hernia sac was encountered. The hernia sac was dissected free of all of its adhesions and reduced. Dissection was carried posteriorly. Next a ProGrip mesh was unfolded over the left inguinal hernia completely covering it with good overlap. Next the peritoneum was reapproximated using a running 3 oh V-Loc suture completely covering the mesh. Next the instruments were removed and the robot was undocked and the ports were removed and the abdomen was allowed to desufflate. The incisions were injected with local anesthetic and closed with interrupted 4-0 Monocryl sutures. Steri-Strips and bandages were applied. Scrotum was checked the end of the case and contained both testicles. Patient was awoken taken to PACU in stable condition and tolerated the procedure well. Surgical Findings: Indirect left inguinal hernia Complications Complications: No Admit VTE Documentation VTE Mechan Device Prophylaxis: SCD's
--- NOTE | 2025-08-13 10:08 | DCINST_ITS ---
Discharge Instructions Procedure Hernia Diet Discharge Diet: Light diet - advance as tolerated Activity Discharge Activity: May Not Drive (for 2-3 days or while taking narcotic pain meds.) and May Shower (with the bandage in place 1-2 days after surgery.) Lifting Restrictions: 20 pounds for 4 weeks. Additional Activity Instructions:: Climbing stairs is fine, walking is encouraged. Sitting in bed may be uncomfortable. Sitting up using your lateral muscles (sitting up sideways) is usually more comfortable. Do not drive, work heavy equipment of sign legal documents for 24 hours. If your hernia repair was an inguinal repair, you may have scrotal swelling, an ice pack and/or athletic support can provide more comfort. Pain medications may cause nausea, you should typically eat light foods as you take your pain medications. Pain medications may also cause constipation. If you have difficulty with this, discuss with your doctor. Alternate ibuprofen and Tylenol for pain control, oxycodone for breakthrough pain. If taking oxycodone take MiraLAX for constipation Dressing / Incision Call your doctor if your incision/area has: Continuous Slow Oozing, Sudden Increased Bleeding, Increased Pain/ Swelling, Increased Redness and Foul Smelling Discharge Call your doctor if you observe: Fever of 101 or Higher Suture Line Care: Avoid Pulling/Pushing and Avoid Pinching/Bending Remove Dressing in: 2 days (Remove clear bandages in 2 days, remove Steri-Strips in 7 to 10 days.) Follow Up Care Please Follow Up With: Rene Sullivan MD When: Please call to schedule 2 week follow up appointment. [phone] Test Results: Test results from this visit will be discussed in further detail at your follow- up appointment, if applicable. Discharge Plan Admission Attending Provider: Rene Sullivan Primary Care Provider: Umair Scales Instructions Print Language: Icelandic Discharge Orders/Prescriptions Prescriptions: New oxycodone 5 mg Tablet 5 - 10 mg PO Q4H PRN PRN (Reason: Pain Score 4-10) 5 Days Qty: 10 0RF No Action (DME) blood-glucose meter [FreeStyle Lite Meter] Kit See Rx Instructions .ROUTE .MEDSUPPLY Qty: 1 0RF Rx Instructions: As directed, check blood glucose daily for type 2 DM ferrous sulfate [FerrouSul] 325 mg (65 mg iron) tablet 325 mg PO QODAY tamsulosin 0.4 mg capsule 0.4 mg PO QHS metformin 1,000 mg tablet 1,000 mg PO BID 90 Days Qty: 180 2RF (DME) FreeStyle Diane 3 Plus Sensor Device See Rx Instructions .Route Qty: 1 3RF Rx Instructions: As directed (DME) FreeStyle Diane 3 [place] Misc See Rx Instructions .Route Qty: 1 3RF Rx Instructions: As directed cholecalciferol (vitamin D3) 50 mcg (2,000 unit) tablet 2,000 unit PO DAILY multivitamin 1 EACH tablet 1 ea PO DAILY mecobalamin (vitamin B12) [B12 Active] 1 tab PO TUTHSA meclizine 25 mg tablet 25 mg PO BID PRN (Reason: dizziness) Qty: 20 0RF rosuvastatin 5 mg tablet 5 mg PO DAILY Qty: 90 3RF Rx Instructions: TAKE 1 TABLET BY MOUTH EVERY DAY (DME) Accu-Chek Guide test strips Strip See Rx Instructions .Route Qty: 100 2RF Rx Instructions: daily (DME) lancets [Accu-Chek Softclix Lancets] Misc See Rx Instructions .Route Qty: 200 2RF Rx Instructions: daily Referrals / Follow Up: Umair Scales MD [Primary Care Provider, Internal Medicine] Disposition Disposition (needs filled in before D/C Order can be placed): Home, Self Care
--- NOTE | 2025-08-13 10:15 | PCM.POST.ANE ---
Anesthesia: Postop Eval I Current Vital Signs Temperature: 97.5 F Pulse Rate: 67 Blood Pressure: 123/77 Respiratory Rate: 20 Pulse Ox: 67 Oxygen Delivery Method: Room Air Assessment Airway patent: Yes Spontaneous unlabored respirations: Yes Mental status: Asleep nausea: No Vomiting: No Anesthesia Complication: No Fluid Hydration Crystalloid volume administer (ml): 900 Total IV fluid infused: 900 Progress Note Anesthesia document: Postop Eval 1 completed: Yes
[2025-08-13] MEDS: Lactated Ringers 1,000 ML 15 ML IV (10:41)
--- NOTE | 2025-08-13 11:14 | POSTOPAN2_ITS ---
Anesthesia Postop Eval I Sum Postop Eval Completion status Anesthesia document: Postop Eval 1 completed: Yes Anesthesia Postop Eval I Summary Anesthesia Postop Eval I Summary: Anesthesia Postop Eval I: Assessment Summary Airway patent Yes 08/13/25 10:16 SOFT METALS HAND ENGRAVER.[email or web address] Spontaneous unlabored Yes 08/13/25 10:16 SOFT METALS HAND ENGRAVER.JDEF respirations Mental status Asleep 08/13/25 10:16 SOFT METALS HAND ENGRAVER.JDEF nausea No 08/13/25 10:16 SOFT METALS HAND ENGRAVER.JDEF Vomiting No 08/13/25 10:16 SOFT METALS HAND ENGRAVER.JDEF Anesthesia Postop Eval I: Fluid Summary Crystalloid volume administer 900 08/13/25 10:16 SOFT METALS HAND ENGRAVER.JDEF (ml) Colloids volume administered ( ml) Blood Product volume administered (ml) Total IV fluid infused 900 08/13/25 10:16 SOFT METALS HAND ENGRAVER.JDEF Anesthesia Postop Eval I: Summary Notes Anesthesia Complication No 08/13/25 10:16 SOFT METALS HAND ENGRAVER.JDEF Anesthesia Complication Comment: Post-operative progress note Anesthesia: Postop Eval II Evaluation Mental status: Awake and Calm Pain Level: 1 nausea: No Vomiting: No Complications Anesthesia Complication: No
--- NOTE | 2025-08-13 11:14 | PCM.POSTANE2 ---
Anesthesia Postop Eval I Sum Postop Eval Completion status Anesthesia document: Postop Eval 1 completed: Yes Anesthesia Postop Eval I Summary Anesthesia Postop Eval I Summary: Anesthesia Postop Eval I: Assessment Summary Airway patent Yes 08/13/25 10:16 AUDIT [email or web address] Spontaneous unlabored Yes 08/13/25 10:16 AUDIT [email or web address] respirations Mental status Asleep 08/13/25 10:16 AUDIT [email or web address] nausea No 08/13/25 10:16 AUDIT [email or web address].JDEF Vomiting No 08/13/25 10:16 AUDIT [email or web address].[email or web address] Anesthesia Postop Eval I: Fluid Summary Crystalloid volume administer 900 08/13/25 10:16 AUDIT [email or web address] (ml) Colloids volume administered ( ml) Blood Product volume administered (ml) Total IV fluid infused 900 08/13/25 10:16 AUDIT [email or web address] Anesthesia Postop Eval I: Summary Notes Anesthesia Complication No 08/13/25 10:16 AUDIT [email or web address].JDEF Anesthesia Complication Comment: Post-operative progress note Anesthesia: Postop Eval II Evaluation Mental status: Awake and Calm Pain Level: 1 nausea: No Vomiting: No Complications Anesthesia Complication: No
== END 2025-08-13 14:01 | disposition home or self-care (01) ==
LOC: SDC 07:41 → AC 07:42
PROVIDERS: PCP Internal Medicine; Referring Provider Surgery; Visit Provider Surgery
PROC: 0YQ64ZZ Repair Left Inguinal Region, Percutaneous Endoscopic Approach (ICD-10-PCS; CPT 49650; principal; 2025-08-13 09:00)
DX: K40.90 Unilateral inguinal hernia, without obstruction or gangrene, not specified as recurrent (principal); E11.40 Type 2 diabetes mellitus with diabetic neuropathy, unspecified; Z79.84 Long term (current) use of oral hypoglycemic drugs; Z87.891 Personal history of nicotine dependence
CPT/HCPCS: 49650; S2900; 00840; 82962; 93005; C1781; J2405